=== PATIENT | female | born 1950 | race Caucasian/White ===

== ENCOUNTER 2016-11-14 06:38 | Inpatient (IN) | payer OTHER ==
[~2016-11-14] VITALS: Ht 165.1 cm; Wt 84.3 kg
--- NOTE | 2016-11-14 06:42 | ED.REPORT ---
HPI-Abd Pain F 40 and Over Date of Service Nov 14, 2016 ED Provider: Dez Up Patient is a 66 year old female who presents to the ED complaining of LLQ, sharp , stabbing, abdominal pain onset 2 days ago. Her pain normally improves with exercise. Associated symptoms include nausea and vomiting (onset this morning). She denies diarrhea, headache, fever, or any other symptoms. She has had similar symptoms previously accompanied by vomiting that was suspected to be diverticulitis. Per records, she was diagnosed with sigmoid diverticulosis on 03/2009. She has taken 3 Vicodin over the past 3 days without relief. She was recently diagnosed with an asymptomatic UTI and finished a course of antibiotics. Nursing Notes Stated Complaint: ABDOMINAL PAIN Nursing Notes Reviewed: Yes Allergies: Coded Allergies: ciprofloxacin (Verified Allergy, Unknown, Rash, 11/14/16) General Time Seen by MD: 06:41 Chief Complaint Abdominal pain Hx Obtained From: Patient Arrived By: Walk-in Sudden in Onset?: Yes Onset Occurred: 3 days ago Symptom Duration: Since onset Progression since Onset: Gradually worsening Similar Sx Previous: Yes Risk Factors )( AAA Risk Stratification HypertensionNo Prior AAA, No Smoking Risk factors reviewed Past Medical History Past Medical History Reports: Hypertension, Denies: Diabetes mellitus Past Surgical History Reports: Cholecystectomy Smoking History Never Smoker Social History Alcohol Use: 1-3 per day Other Social History: Good social support Ambulatory Status Independent Review of Systems Constitutional: Denies: Fever GI: Reports: Abdominal pain, Nausea, Vomiting, Denies: Diarrhea Complete sys rev & neg: except as marked. Neurologic: Denies: Headache Physical Exam Vital Signs Vital Signs (First) Date Time Temp Pulse Resp B/P Pulse Ox O2 Delivery O2 Flow Rate FiO2 11/14/16 06:44 37.3 98 18 198/98 97 Room Air Initial VS: Reviewed Head / Eyes: Atraumatic, Normocephalic Neck: Full range of motion Skin: Warm, Dry Neurologic: Alert, Oriented, Nonfocal Psychiatric: Mood/affect normal, Behavior normal, Normal thought content General/Constitutional: Awake, Alert, Well developed Respiratory / Chest: Atraumatic, Breath sounds NL, Breath sounds = bilat, No respiratory distress Cardiovascular: Heart sounds NL, No gallop, No murmurs, No rubs Abdomen: Atraumatic, Soft Tenderness/Guarding/Rebound: Positive: Tender LLQ... (Mild) Back: Atraumatic, Inspection NL, No CVA tenderness Interpretation & Diagnostics Lab Results Interpretation Result Diagram: 11/14/16 0715 11/14/16 0715 Test 11/14/16 07:00 11/14/16 07:15 Urine Color Straw (YELLOW) Urine Appearance Clear (CLEAR,HAZY) Urine pH 5.5 (5.0-8.0) Urine Specific [place] 1.021 (1.003-1.035) Urine Protein Negativemg/dL (NEG,TRACE) Urine Glucose (UA) Negativemg/dL (NEGATIVE) Urine Ketones Negativemg/dL (NEGATIVE) Urine Occult Blood Trace (NEGATIVE) Urine Nitrite Negative (NEGATIVE) Urine Bilirubin Negative (NEGATIVE) Urine Urobilinogen Normalmg/dL (NORMAL) Urine Leukocyte Esterase Trace (NEGATIVE) Urine RBC 0-2/hpf (0-2) Urine WBC 0-5/hpf (0-5) Urine Epithelial Cells Occasional/hpf (NONE-MOD) Urine Crystals Uric acid crystals (NONE Urine Bacteria None/hpf (NONE-FEW) Urine Hyaline Casts None/lpf (NONE) Urine Granular Casts None seen (NONE SEEN) Urine Waxy Casts None seen (NONE SEEN) Urine Red Blood Cell Casts None seen (NONE SEEN) Urine White Blood Cell Casts None seen (NONE SEEN) Urine Mucus None seen (None Seen) Urine Trichomonas None seen (NONE SEEN) Urine Yeast None (NONE SEEN) Urinalysis Comment None Urine Culture Reflexed Not indicated White Blood Count 14.6th/mm3 (3.8-10.1) Red Blood Count 4.66mil/mm3 (3.90-5.20) Hemoglobin 13.9g/dL (12.0-15.6) Hematocrit 41.6% (35.0-46.0) Mean Corpuscular Volume 89.3fL (81-100) Mean Corpuscular Hemoglobin 29.8pg (27.0-35.0) Mean Corpuscular Hemoglobin Concent 33.4% (32.0-37.0) Red Cell Distribution Width 14.5% (12.3-15.4) Platelet Count 253bil/L (150-400) Neutrophils (%) (Auto) 73.0% (40-74) Lymphocytes (%) (Auto) 16.1% (14-46) Monocytes (%) (Auto) 10.3% (4-12) Eosinophils (%) (Auto) 0.1% (0-5) Basophils (%) (Auto) 0.1% (0-3) Sodium Level 139mEq/L (134-144) Potassium Level 3.9mEq/L (3.5-5.2) Chloride Level 102mEq/L (97-108) Carbon Dioxide Level 20mmol/L (18-29) Blood Urea Nitrogen 21mg/dL (8-27) Creatinine 0.83mg/dL (0.57-1.00) Estimat Glomerular Filtration Rate 98mL/min (>59) Glucose Level 156mg/dL (60-99) Calcium Level 9.7mg/dL (8.5-10.1) Magnesium Level 1.8mg/dL (1.6-2.6) Total Bilirubin 0.7mg/dL (0.0-1.2) Aspartate Amino Transf (AST/SGOT) 14U/L (0-50) Alanine Aminotransferase (ALT/SGPT) 19U/L (0-32) Alkaline Phosphatase 103U/L (25-165) Total Protein 7.9g/dL (6.4-8.4) Albumin 4.4g/dL (3.4-5.0) Lipase 13U/L (13-60) Hold Marcus Top Tube Received (Received) CT Abd / Pelvis Interpretation IMPRESSION: 1. Sigmoid diverticulosis and diverticulitis. There is a 1.2 x 2.6 cm fluid collection left lateral to the sigmoid colon demonstrating rim enhancement and small amount of gas, suspicious for diverticular perforation and small abscess. 2. Low-density nodules in liver are most likely cysts or hemangiomas. The result was discussed with Dr. Up in ER prior to dictation. Dictated by: Luda Murry M.D. on 11/14/2016 at 9:10 Approved by: Luda Murry M.D. on 11/14/2016 at 9:19 Study type: Abdominal CT IV contrast Interpretation / Wet Read by: Interpret - Radiologist Re-Eval/Medical Decision Re-Evaluation/Progress #1: Time of Eval: 08:10 )( Re-Eval Abdomen: Soft Re-Evaluation/Progress Note: Rechecked patient. She is feeling much better and her sharp abdominal pain is nearly resolved. Re-Evaluation/Progress #2: Time of Eval: 09:27 )( Re-Eval Abdomen: Soft Re-Evaluation/Progress Note: Rechecked patient. Discussed imaging results. Re-Evaluation/Progress #3: Time of Eval: 09:48 )( Re-Eval Abdomen: Soft Re-Evaluation/Progress Note: Discussed plan for admission. Patient understands and agrees with plan. All questions addressed at this time. Consultation #1: Referral / Consult Name: David Parra MD Consulted With: Surgeon Call Returned at: 09:43 Intensive Care Nurse: Agrees with eval, Agrees with plan Note: Discussed pt. case. Suggests in-patient care Consultation #2: Referral / Consult Name: Salvador Cotter MD Consulted With: Hospitalist Call Returned at: 10:52 Intensive Care Nurse: Will see patient, Agrees with eval, Agrees with plan, Accepts admit Note: Discussed patient's case. Accepts admit. Counseled Regarding: Diagnosis, Lab results, Need for admission Discharge & Departure Primary Impression: Diverticulitis of intestine with perforation and abscess Diverticulitis site: unspecified part of intestinal tract Diverticulitis bleeding: without bleeding Qualified Code: K57.80 - Diverticulitis of intestine, part unspecified, with perforation and abscess without bleeding Disposition: ADMITTED TO HOSPITAL Scribe Attestation Portions of this note were transcribed by Nasim Ac. I, Dr. Up personally performed the history, physical exam and medical decision-making; I reviewed and confirmed the accuracy of the information in the transcribed note. Signed by: Nasim Ac 11/14/16, 1053 Dez Up MD Nov 14, 2016 06:41 NASIM AC Nov 14, 2016 06:49
[2016-11-14 06:44] VITALS: BP 198/98; PULSE 98; RESP 18; O2SAT 97
[2016-11-14] MEDS ORDERED: 0.9% Sodium Chloride 1,000 ML IV ONE (06:51)
[2016-11-14] MEDS ORDERED: Pantoprazole 4 mg/mL 10 mL Inj IVPUSH ONE (06:55)
[2016-11-14] MEDS ORDERED: Ondansetron 2 mg/mL 2 mL Inj IVPUSH PRN ×2 (06:55→11:00)
[2016-11-14 07:35] LABS: BASOPHILS % (AUTO) 0.1 % (0-3); EOSINOPHILS % (AUTO) 0.1 % (0-5); MONOCYTES % (AUTO) 10.3 % (4-12); Mean Corpuscular Hemoglobin 29.8 pg (27.0-35.0); Mean Corpuscular Volume 89.3 fL (81-100); Platelet Count 253 bil/L (150-400)
[2016-11-14 07:50] LABS: APPEARANCE,URINE CLEAR (CLEAR,HAZY); COLOR,URINE STRAW (YELLOW); OCCULT BLOOD,URINE TRACE (NEGATIVE); PH,URINE 5.5 (5.0-8.0); UROBILINOGEN,URINE NORMAL (NORMAL)
[2016-11-14 08:16] LABS: Magnesium 1.8 mg/dL (1.6-2.6)
[2016-11-14] MEDS: HYDROmorphone 1 mg/mL Inj IVPUSH PRN ×4 (08:41→20:03)
--- NOTE | 2016-11-14 09:21 | DRSVH ---
PROCEDURE: CT ABDOMEN AND PELVIS WITH CONTRAST ([id number]) INDICATIONS: 66 year-old woman with left lower quadrant pain. TECHNIQUE: After the administration of intravenous contrast, 5 mm thick sections acquired from the diaphragm to the symphysis. 5 mm coronal and sagittal reformats were acquired. For radiation dose reduction, the following was used: automated exposure control, adjustment of mA and/or kV according to patient siz e. COMPARISON: None. FINDINGS: Image quality: Excellent. ABDOMEN: Lung bases: Lung bases are clear. Heart size is normal. Solid organs: Hepatic hypodensities are most likely cysts or hemangiomas. Liver and spleen are flaca l in size and enhancement. Gallbladder is surgically absent. Biliary system is non dilated. Pancre as enhances normally. No adrenal nodules. Kidneys demonstrate normal size and enhancement, without hydronephrosis. Peritoneum and bowel: There are scattered colonic diverticula in sigmoid colon. There is focal thick ening sigmoid colon surrounding fat stranding consistent with acute diverticulitis. There is a small rim enhancing fluid collection lateral to the sigmoid colon measuring 1.2 x 2.6 cm. There is small am ount of gas within the collection. It is suspicious for a small diverticular perforation and abscess. Bowel loops demonstrate normal wall thickness and caliber. No free fluid or air. Nodes and vessels: No retroperitoneal or mesenteric adenopathy by size criteria. Aorta and inferior vena cava are normal in size. Miscellaneous: No ventral hernias. PELVIS: Genitourinary: Bladder wall thickness is normal. Miscellaneous: No inguinal hernias or adenopathy. Bones: No suspicious bony lesions. No vertebral body compression fractures. IMPRESSION: 1. Sigmoid diverticulosis and diverticulitis. There is a 1.2 x 2.6 cm fluid collection left lateral t o the sigmoid colon demonstrating rim enhancement and small amount of gas, suspicious for diverticula r perforation and small abscess. 2. Low-density nodules in liver are most likely cysts or hemangiomas. The result was discussed with Dr. Up in ER prior to dictation. Dictated by: Luda Murry M.D. on 11/14/2016 at 9:10 Approved by: Luda Murry M.D. on 11/14/2016 at 9:19
[2016-11-14] MEDS ORDERED: Piperacillin-Tazo 3.375 Gm Inj 3.375 GM in Dextrose 5% Minibag Plus 50 ML IV ONE (09:45)
[2016-11-14] MEDS ORDERED: Alum-Mag Hydrox-Simeth 30 mL Suspension PO PRN (11:00)
[2016-11-14 11:24] VITALS: BP 108/82; PULSE 80; RESP 18; O2SAT 96
[2016-11-14 11:30] VITALS: BP 131/80; PULSE 78; RESP 17; O2SAT 97
--- NOTE | 2016-11-14 11:30 | PCM.CONSUR ---
Subjective Date of Service: Nov 14, 2016 History of Present Illness Patient is a 66 year old female who presents to the ED complaining of LLQ, sharp , stabbing, abdominal pain onset 2 days ago with Tuesday worse than Tuesday. Her pain normally improves with exercise. She has had similar symptoms previously accompanied by vomiting that was suspected to be diverticulitis. Per records, she was diagnosed with sigmoid diverticulosis on 03/2009. Reports last colonoscopy was roughly 4-5 years ago showing diverticulosis with no evidence of mass. She has taken 3 Vicodin over the past 3 days without relief. Took previously prescribed amoxicillin and Vicodin since she has known sigmoid diverticulosis and recurrent diverticulitis. She was recently diagnosed with an asymptomatic UTI and finished a course of antibiotics. 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 Medications include Vit D, fish oil and has taken cholestyramine since cholecystectomy, which gives her chronic loose stools. Pain currently well controlled. Denies fever, chills, dizziness, shortness of breath, chest pain and no nausea, and vomiting since this morning. Reports daily BMs. Nausea with vomiting today due to pain. Abdomen TTP in LLQ. Of note: Has a trip scheduled to [facility] then cruise ship for 5 day to [place] starting Tuesday for a total trip of 16 days. Reason for Consultation LLQ abdominal pain CT findings of sigmoidal diverticulitis with small fluid collection. Allergy Allergies: Coded Allergies: ciprofloxacin (Verified Allergy, Unknown, Rash, 11/14/16) Medications Hypertension Medication: No Home Meds Incl Beta Blockers: No Cholecalciferol (Vitamin D3) (Vitamin D3) 5,000 Unit Capsule 5,000 UNIT PO DAILY (Reported) Last Taken: Unknown Dose on 11/13/16 0830 Cholestyramine (Cholestyramine Packet) 4 Gm Packet 4 GM PO DAILY (Reported) Last Taken: Unknown Dose on 11/13/16 0830 Hydrocodone-Acetaminophen 5-325 mg (Hydrocodone-Acetaminophen 5-325 mg) 1 Each Tablet 1 TABLET PO TID PRN PRN For Pain (Reported) Last Taken: Unknown Dose on 11/14/16 0100 Lactobacillus Combo No.11 ( Probiotic) 1 Each Cap.sprink 1 EACH PO DAILY (Reported) Last Taken: Unknown Dose on 11/13/16 0830 [place]-3/Dha/Epa/Fish Oil (Fish Oil 1,600 mg/5 ml Liquid) 1,600 Mg-500 Mg-800 Mg/5 Ml Liquid 1,600 MG PO DAILY ( Reported) Last Taken: Unknown Dose on 11/13/16 0830 Past Surgical History Surgeries: Yes (Gallbladder) Social History Hx Alcohol Use: Yes (red wine) Alcoholic Drinks Per Day: 1-2 glasses Hx Substance Use: No PMH Cardiovascular History Cardiovascular History: Positive for:: Hypertension (Had it 10 years ago, diet and excersise reduced BP) Denies:: Congestive Heart Failure Respiratory Respiratory History: Denies:: Tuberculosis Other History Diabetes: No Social History Hx Alcohol Use: Yes (red wine)Alcoholic Drinks Per Day: 1-2 glassesHx Substance Use: No Smoking Status: Never Smoker Objective Exam Objective A comprehensive review of systems was conducted with the patient and found to be negative except as above in the History of Present Illness. Vital Signs & I/O Vital Sign- Last 8 Hours Date Time Temp Pulse Resp B/P Pulse Ox O2 Delivery O2 Flow Rate FiO2 11/14/16 06:44 37.3 98 18 198/98 97 Room Air Lab & Micro Results Laboratory Tests Test 11/14/16 07:00 11/14/16 07:15 Urine Color Straw (YELLOW) Urine Appearance Clear (CLEAR,HAZY) Urine pH 5.5 (5.0-8.0) Urine Specific [place] 1.021 (1.003-1.035) Urine Protein Negativemg/dL (NEG,TRACE) Urine Glucose (UA) Negativemg/dL (NEGATIVE) Urine Ketones Negativemg/dL (NEGATIVE) Urine Occult Blood Trace (NEGATIVE) Urine Nitrite Negative (NEGATIVE) Urine Bilirubin Negative (NEGATIVE) Urine Urobilinogen Normalmg/dL (NORMAL) Urine Leukocyte Esterase Trace (NEGATIVE) Urine RBC 0-2/hpf (0-2) Urine WBC 0-5/hpf (0-5) Urine Epithelial Cells Occasional/hpf (NONE-MOD) Urine Crystals Uric acid crystals (NONE Urine Bacteria None/hpf (NONE-FEW) Urine Hyaline Casts None/lpf (NONE) Urine Granular Casts None seen (NONE SEEN) Urine Waxy Casts None seen (NONE SEEN) Urine Red Blood Cell Casts None seen (NONE SEEN) Urine White Blood Cell Casts None seen (NONE SEEN) Urine Mucus None seen (None Seen) Urine Trichomonas None seen (NONE SEEN) Urine Yeast None (NONE SEEN) Urinalysis Comment None Urine Culture Reflexed Not indicated White Blood Count 14.6th/mm3 (3.8-10.1) Red Blood Count 4.66mil/mm3 (3.90-5.20) Hemoglobin 13.9g/dL (12.0-15.6) Hematocrit 41.6% (35.0-46.0) Mean Corpuscular Volume 89.3fL (81-100) Mean Corpuscular Hemoglobin 29.8pg (27.0-35.0) Mean Corpuscular Hemoglobin Concent 33.4% (32.0-37.0) Red Cell Distribution Width 14.5% (12.3-15.4) Platelet Count 253bil/L (150-400) Neutrophils (%) (Auto) 73.0% (40-74) Lymphocytes (%) (Auto) 16.1% (14-46) Monocytes (%) (Auto) 10.3% (4-12) Eosinophils (%) (Auto) 0.1% (0-5) Basophils (%) (Auto) 0.1% (0-3) Sodium Level 139mEq/L (134-144) Potassium Level 3.9mEq/L (3.5-5.2) Chloride Level 102mEq/L (97-108) Carbon Dioxide Level 20mmol/L (18-29) Blood Urea Nitrogen 21mg/dL (8-27) Creatinine 0.83mg/dL (0.57-1.00) Estimat Glomerular Filtration Rate 98mL/min (>59) Glucose Level 156mg/dL (60-99) Calcium Level 9.7mg/dL (8.5-10.1) Magnesium Level 1.8mg/dL (1.6-2.6) Total Bilirubin 0.7mg/dL (0.0-1.2) Aspartate Amino Transf (AST/SGOT) 14U/L (0-50) Alanine Aminotransferase (ALT/SGPT) 19U/L (0-32) Alkaline Phosphatase 103U/L (25-165) Total Protein 7.9g/dL (6.4-8.4) Albumin 4.4g/dL (3.4-5.0) Lipase 13U/L (13-60) Hold Marcus Top Tube Received (Received) Result Diagram: 11/14/16 0715 11/14/16 0715 Review of Systems: Constitutional: Negative, except as otherwise mentioned in the history above. Ophthalmologic: Negative, except as otherwise mentioned in the history above. Cardiovascular: Negative, except as otherwise mentioned in the history above. Respiratory: Negative, except as otherwise mentioned in the history above. Gastrointestinal: Negative, except as otherwise mentioned in the history above. Genitourinary: Negative, except as otherwise mentioned in the history above. Musculoskeletal: Negative, except as otherwise mentioned in the history above. Neurological: Negative, except as otherwise mentioned in the history above. Psychiatric: Negative, except as otherwise mentioned in the history above. Hematologic/Lymphatic: Negative, except as otherwise mentioned in the history above. Allergic/Immunologic: Negative, except as otherwise mentioned in the history above. H&P Surgical Exam Exam Additional Information General: Peacefully sitting up in bed. Well-developed. Appropriately interactive. HEENT: Normocephalic, atraumatic. External ears without defect. Oropharynx free of erythema with moist mucosa. Normal dentition. Cardiovascular: Regular rate and rhythm with no murmurs, rubs, or gallops appreciated Pulmonary: Clear to auscultation bilaterally with no crackles, wheezes, or rhonchi. Normal respiratory effort with no use of accessory muscles. Abdomen: Bowel tones present. Soft, Mild to moderately tender to palpation in the LLQ, nondistended. No hepatosplenomegaly or masses appreciated. Extremities: No clubbing, cyanosis, edema, or lymphadenopathy appreciated. Skin: Normal temperature, turgor, and texture; no rash, ulcers, or subcutaneous nodules appreciated. Neurological: Cranial nerves grossly intact. Normal muscle strength, tone, and bulk. Reflexes, coordination, and sensory function within normal limits. No known gait impairment. Psychiatric: Normal mood and affect. Alert and oriented to person, place, and time. Assessment & Plan Assessment Sigmoidal Diverticulitis with small fluid collection per CT. Pain Evaluation: Adequate Pain Control Plan: -Surgical intervention not necessary at this point. Recommend 1-3 night stay with bowel rest, IV abx and pain control. She will be on a cruise ship heading for [place] for 5 days starting Tuesday. We want to make sure she has adequate IV antibiotic coverage - before the trip. Also will plan for repeat CT abdomen preferably on before her trip to make sure she doesn't have an abscess brewing. -NPO and bowel rest, will monitor overnight. -Continue IV antibiotics. -Hospitalist team following. -Continue pain regimen per medicine team. -Continue IV fluids per medicine team. Attending Statement: I personally interviewed and examined the pt, and I agree with Dr. Carolina's assessment and plan. IV abx for now. Consider a repeat CT scan prior to her travel. LOGAN CAROLINA DO Nov 14, 2016 11:30 David Parra MD Nov 14, 2016 17:00
--- NOTE | 2016-11-14 11:56 | NUR ---
Admission Pt arrived to [facility] rm 1027 at approx 1120. Pt arrived via gurney and was able to ambulate independently to the hospital bed. IV SL, RA, pain 2, denies nausea. Rec'd report from Theresa Scales RN. Pt oriented to room and call light by RUSS, welcome video showed after admission complete. Medications that were with patient were given to daughter to take home.
[2016-11-14] MEDS ORDERED: HYDR-4003 PO (12:04)
[2016-11-14] MEDS ORDERED: CHOL5000 PO (12:04)
[2016-11-14] MEDS ORDERED: OMEG1600 PO (12:04)
[2016-11-14] MEDS ORDERED: QUE9 PO (12:04)
[2016-11-14] MEDS ORDERED: LACT1CAP73 PO (12:04)
[2016-11-14] MEDS: 0.9% Sodium Chloride 1,000 ML IV SCH ×2 (12:46→22:06)
--- NOTE | 2016-11-14 15:18 | PCM.HPMED ---
Subjective Date of Service Nov 14, 2016 Primary Provider: Admitting Physician: Salvador Cotter MD Primary Care Physician: Nopcp Attending Physician: Salvador Cotter MD Chief Complaint: abdominal pain History of Present Illness: Patient is a 66 year old female with past medical history of divertuclosis , diverticulitis , who presents to the ED complaining of LLQ, sharp, stabbing, abdominal pain onset 2 days ago with Tuesday worse than Tuesday. She took a couple of doses of vicodin without any improvement . She has a recent UTI for which [facility] was put on Amoxicillin. She also stated she had previous history of diverticulitis back in march 2009. last colonoscopy was 4 years ago and showed diverticulosis CT scan here shows : Sigmoid diverticulosis and diverticulitis. There is a 1.2 x 2.6 cm fluid collection left lateral to the sigmoid colon demonstrating rim enhancement and small amount of gas, suspicious for diverticular perforation and small abscess. Review of Systems: A comprehensive review x 12 points is negative except for abdominal pain as described above in HPI Allergies Coded Allergies: ciprofloxacin (Verified Allergy, Unknown, Rash, 11/14/16) Home Medications Cholecalciferol (Vitamin D3) (Vitamin D3) 5,000 Unit Capsule 5,000 UNIT PO DAILY (Reported) Cholestyramine (Cholestyramine Packet) 4 Gm Packet 4 GM PO DAILY (Reported ) Hydrocodone-Acetaminophen 5-325 mg (Hydrocodone-Acetaminophen 5-325 mg) 1 Each Tablet 1 TABLET PO TID PRN PRN For Pain (Reported) Lactobacillus Combo No.11 (Probiotic) 1 Each Cap.sprink 1 EACH PO DAILY ( Reported) [place]-3/Dha/Epa/Fish Oil (Fish Oil 1,600 mg/5 ml Liquid) 1,600 Mg-500 Mg-800 Mg /5 Ml Liquid 1,600 MG PO DAILY (Reported) PMH Diverticulosis Surgical History Cholecystectomy Family History Unremarkable Social History Hx Alcohol Use: Yes Alcoholic Drinks Per Day: Wine 2 glasses per day Hx Substance Use: No Smoking Status: Never Smoker Living Arrangement: with Family Exam Vital Signs Vital Sign - Last Date Time Temp Pulse Resp B/P Pulse Ox O2 Delivery O2 Flow Rate FiO2 11/14/16 11:30 36.7 78 17 131/80 97 Room Air Exam General: No acute distress, well-developed, well-nourished, appropriately interactive HEENT: Normocephalic, atraumatic Pupils equal, round, and reactive to light and accommodation, no scleral icterus, oral mucosa moist . Neck: Supple with full range of motion. No jugular venous distension. No bruits. No lymphadenopathy or thyromegaly. Cardiovascular: Regular rate and rhythm with no murmurs, rubs, or gallops appreciated Pulmonary: Clear to auscultation bilaterally with no crackles, wheezes, or rhonchi. Normal respiratory effort. Abdomen: Bowel tones present. Soft, left lower quadrant tenderness.no guarding Extremities: No clubbing, cyanosis, edema, or lymphadenopathy appreciated. Skin: Normal temperature, turgor, and texture; no rash, ulcers, or subcutaneous nodules appreciated. Neurological: Cranial nerves grossly intact. Normal muscle strength, tone, and bulk. Psychiatric: Normal mood and affect. Alert and oriented to person, place, and time. Lab and Diagnostics Result Diagram: 11/14/1615 11/14/1615 X-Rays, CTs and MRIs abdominal CT scan reviewed : 1. Sigmoid diverticulosis and diverticulitis. There is a 1.2 x 2.6 cm fluid collection left lateral to the sigmoid colon demonstrating rim enhancement and small amount of gas, suspicious for diverticular perforation and small abscess. 2. Low-density nodules in liver are most likely cysts or hemangiomas. Assessment & Plan 1. Acute Diverticulitis 2. Perforated Viscus 3. H/o Diverticulosis 4. Liver low density lseion : Cyst VS hemangioma. Medical management Clear liquid diet . PPI. Zofran for nausea and vomiting Morphine sulfate 2 mg IV Q$ H PRN for pain IV hydration with NS @ 100 ml/hr / Monitor electrolytes Start Zosyn 3.375 mg IV every 8 hours . Surgery consult and recommendation. Obtain liver US for better definition of low density lesion seen on CT scan Patient stated she would rather not have any surgery , even in the case that become necessary SCD for DVT prophylaxis Pain Evaluation: Adequate Pain Control GI Prophylaxis: Proton Pump Inhibitor VTE Mechanical Devices: Intermittant Pneumatic CD Time spent 75 minutes Salvador Cotter MD Nov 14, 2016 15:18
[2016-11-14 16:06] VITALS: BP 123/76; PULSE 86; RESP 19; O2SAT 99
[2016-11-14] MEDS ORDERED: Piperacillin-Tazo 3.375 Gm Inj 3.375 GM in Dextrose 5% Minibag Plus 50 ML IV SCH (16:30)
--- NOTE | 2016-11-14 17:15 | DRSVH ---
PROCEDURE: US ABDOMEN, LIMITED ([id number]) INDICATIONS: Liver cyst VS mass TECHNIQUE: Real-time focused scanning was performed of the abdomen, with image documentation. COMPARISON: [facility], CT, CT ABD PELVIS W CON, 11/14/2016, 8:32. FINDINGS: 2 hepatic cysts are present, correlating with findings on CT and a larger cyst is in the an terior right hepatic lobe measuring 3.7 x 2.9 x 2.7 cm. This cyst demonstrates mild mural nodularity and has a partial septation. On Doppler ultrasound, no flow within the cyst. There is a smaller cyst just more superiorly in the right hepatic lobe measuring 1.7 x 1.6 x 1.5 cm. IMPRESSION: 2 hepatic cysts. Dictated by: Luda Muryr M.D. on 11/14/2016 at 17:09 Approved by: Luda Murry M.D. on 11/14/2016 at 17:13
[2016-11-14] MEDS: Piperacillin-Tazo 3.375 Gm Inj 3.375 GM in Dextrose 5% Minibag Plus 50 ML IV SCH (18:14)
[2016-11-14 19:55] VITALS: BP 148/86; PULSE 83; RESP 14; O2SAT 94
[2016-11-15] MEDS: HYDROmorphone 1 mg/mL Inj IVPUSH PRN ×4 (00:43→21:01)
[2016-11-15] MEDS: Piperacillin-Tazo 3.375 Gm Inj 3.375 GM in Dextrose 5% Minibag Plus 50 ML IV SCH ×3 (02:47→18:49)
--- NOTE | 2016-11-15 04:11 | NUR ---
Pain On initial assessment, patient's pain level stated at a 3/10 on pain scale. Patient can tolerate 1/10. Dilaudid 1mg IVP administered. Patient ambulating to BR well without any problems. VSS. Call light within reach. Care continues.
[2016-11-15 05:17] VITALS: BP 157/83; PULSE 84; RESP 16; O2SAT 93
[2016-11-15 06:13] LABS: BASOPHILS % (AUTO) 0.1 % (0-3); EOSINOPHILS % (AUTO) 0.9 % (0-5); MONOCYTES % (AUTO) 10.1 % (4-12); Mean Corpuscular Hemoglobin 29.9 pg (27.0-35.0); Mean Corpuscular Volume 92.5 fL (81-100); NEUTROPHILS % (AUTO) 68.9 % (40-74); Platelet Count 194 bil/L (150-400)
[2016-11-15] MEDS ORDERED: Ketorolac 15 mg/mL Inj IVPUSH ONE (08:20)
[2016-11-15] MEDS: 0.9% Sodium Chloride 1,000 ML IV SCH ×3 (08:21→23:10)
--- NOTE | 2016-11-15 09:05 | PCM.PNSURG ---
Subjective Date of Service: Nov 15, 2016 Visit Information: Reason for Visit Diverticulitis W/Perf And Abscess Surgery/Surgery Date Post-Op Day # Date of Admission: Nov 14, 2016 at 10:38 Hospital Day #2 Subjective: Pain mostly but not completely resolved with IV analgesics. Nausea relieved with IV antiemetic. Drinking liquids. No vomiting. Passing flatus but has not had a bowel movement. Ambulatory in the room. Postop General: Other (as above) Gastrointestinal: Tolerating Oral Feedings, Passing Flatus, Complains of Nausea (minimal) Pain Management: IV Push Postop Activity: Ambulating in Room Only Objective Vital Sign- Last 8 Hours Date Time Temp Pulse Resp B/P Pulse Ox O2 Delivery O2 Flow Rate FiO2 11/15/16 05:17 37.0 84 16 157/83 93 Room Air Intake and Output- Last 8 Hour 11/15/16 Cumulative From/Thru 07:00 11/14/16 06:44 - 11/15/16 06:42 Intake Total 1341 ml 3116 ml Output Total 450 ml 550 ml Balance 891 ml 2566 ml Intake Oral 400 ml 660 ml IV Total 941 ml 2456 ml Output Urine Total 450 ml 550 ml # Bowel Movements 0 General: Alert, Cooperative, No Acute Distress Lungs: Clear to Auscultation Heart: Regular Rate/Rhythm Abdomen: Soft, Non-distended, No masses, Other (tender in the left lower quadrant) Extremities: Thigh&Calf Soft/Nontender Neuro: Normal Speech Catheters: None Result Diagram: 11/15/16 0540 11/15/16 0540 Assessment & Plan Impression Primary diagnosis: Sigmoid diverticulitis with CT evidence of microperforation. HD #2 on IV antibiotics, stable. Other chronic condition: Hypertension Problems: Plan 1. Continue liquid diet. 2. Continue IV antibiotics. 3. Repeat CBC in the morning. Pain Management: IV analgesic VTE Prophylaxis: SCDs Resuscitation Status: CPR: Attempt Resuscitation Burton Rg PA-C Nov 15, 2016 09:05
--- NOTE | 2016-11-15 11:32 | NUR ---
Social Work-initial assessment/ readiness for discharge: Data:See initial assessment. Pt is on 66 y/o female who was admitted on 11/14/16 for diverticulitis per H&P. Pt's insurance is [employer] and PCP is Dr. Alex MD at the [facility]. Pt's readmission score is 1.SW met with pt and daughter at bedside to discuss discharge planning, SW role explained. Pt is alert and oriented x3. Pt resides at home where she remains independent with ADLS. Pt drives and has no HH or SNF history. Pt has no retirement care or VA benefits. SW discussed DPOA/ advanced directive, pt states she has completed paperwork, SW encouraged her to bring a copy into the hospital. Per RN notes, pt has been up independent in her room. Pt's daughter to provide transport home at discharge. SW provided phone number and plan on white board in room. No anticipated discharge needs. SW will continue to follow if needs arise. Assessment:Pt who is independent at baseline. Plan:Pt to discharge home when medically stable via POV. No anticipated discharge needs. SW will continue to follow if needs arise. MINAL Prater Addendum: 11/15/16 at 1140 by DIGNA CARNE Amended: Links added.
--- NOTE | 2016-11-15 12:06 | PCM.PNMED ---
Subjective Date of Service Nov 15, 2016 Subjective Follow up for diverticulitis . Patient seen and examined at bedside . She is feeling better today, tolerating liquid diet. No nausea, no vomiting. WBC down and abdominal pain is quite less Exam Vital Signs Vital Sign - Last Date Time Temp Pulse Resp B/P Pulse Ox O2 Delivery O2 Flow Rate FiO2 11/15/16 05:17 37.0 84 16 157/83 93 Room Air Intake and Output 11/14/16 11/14/16 11/15/16 Cumulative From/Thru 15:00 23:00 07:00 11/14/16 06:44 - 11/15/16 06:42 Intake Total 999 ml 776 ml 1341 ml 3116 ml Output Total 100 ml 450 ml 550 ml Balance 999 ml 676 ml 891 ml 2566 ml Intake Oral 260 ml 400 ml 660 ml IV Total 999 ml 516 ml 941 ml 2456 ml Output Urine Total 100 ml 450 ml 550 ml # Bowel Movements 0 0 Exam General: No acute distress. In bed comfortably HEENT: PERRL . Sclerae is anicteric Mouth : Moist oropharyngeal mucosae. Neck: supple, trachea is midline . Normal ROM. Chest: normal respiratory effort. No chest wall tenderness Lungs clear to auscultation and percussion. Heart: S1, S2 regular Rate, rhythm is regular. There is no murmur, rub or gallop. Abdomen: Left lower quadrant mildly tender. Normal bowel sounds on quadrant Extremities: No edema, no cyanosis Neurologic: Grossly non focal. AAO x 3 IVs and Medications Medications Reviewed: Medications were reviewed in detail Lab and Diagnostics Result Diagram: 11/15/16 0540 11/15/16 0540 X-Rays, CTs and MRIs abdominal CT scan reviewed : 1. Sigmoid diverticulosis and diverticulitis. There is a 1.2 x 2.6 cm fluid collection left lateral to the sigmoid colon demonstrating rim enhancement and small amount of gas, suspicious for diverticular perforation and small abscess. 2. Low-density nodules in liver are most likely cysts or hemangiomas. Assessment & Plan 1. Acute Diverticulitis 2. Perforated Viscus 3. H/o Diverticulosis 4. Liver cyst Medical management Patient is feeling better today . Some lingering abdominal pain . She stated Toradol works better and would like to avoid narcotics Discontinue Dilaudid Continue IV hydration with NS @ 100 ml/hr / Monitor electrolytes Continue Zosyn 3.375 mg IV every 8 hours . Surgery consult and recommendation appreciated US shows low density lesion seen on CT scan are 2 liver cysts Upgrade diet to full liquid SCD for DVT prophylaxis GI Prophylaxis: Proton Pump Inhibitor VTE Prophylaxis: SCDs VTE Mechanical Devices: Intermittant Pneumatic CD Resuscitation Status: CPR: Attempt Resuscitation Time spent 25 minutes Salvador Cotter MD Nov 15, 2016 12:06
[2016-11-15] MEDS: Ketorolac 15 mg/mL Inj IVPUSH PRN ×2 (12:23→19:51)
--- NOTE | 2016-11-15 13:46 | NUR ---
Pain Pt continues with abd pain, but states Toradol is working much better. Pt up ad yasmeen in room with steady gait, now tolerating full liquid diet. Cont to monitor.
[2016-11-15 15:07] VITALS: BP 137/86; PULSE 76; RESP 19; O2SAT 95
[2016-11-15 19:45] VITALS: BP 193/94; PULSE 77; RESP 17; O2SAT 95
[2016-11-16] MEDS: Piperacillin-Tazo 3.375 Gm Inj 3.375 GM in Dextrose 5% Minibag Plus 50 ML IV SCH ×2 (02:30→10:38)
--- NOTE | 2016-11-16 03:08 | NUR ---
Nausea On initial assessment, patient complains of nausea. Patient states that nausea increased after full liquid diet and drinking Ensure. Pain stated 8/10 on pain scale. Dilaudid and Toradol administered. Patient states that she wants to continue clear liquid diet. Ondansetron administered for nausea. On reassessment, pain and nausea relieved. Blood pressure elevated . Other VS stable. Call light within reach. Care continues.
[2016-11-16] MEDS: Ketorolac 15 mg/mL Inj IVPUSH PRN ×2 (03:55→11:57)
[2016-11-16] MEDS: 0.9% Sodium Chloride 1,000 ML IV SCH (04:21)
[2016-11-16 05:56] VITALS: BP 174/85; PULSE 67; RESP 17; O2SAT 94
[2016-11-16] MEDS: HYDROmorphone 1 mg/mL Inj IVPUSH PRN (06:06)
[2016-11-16 06:16] LABS: BASOPHILS % (AUTO) 0.1 % (0-3); MONOCYTES % (AUTO) 6.9 % (4-12); Mean Corpuscular Hemoglobin 29.4 pg (27.0-35.0); Mean Corpuscular Volume 91.6 fL (81-100); NEUTROPHILS % (AUTO) 74.2 % (40-74); Platelet Count 229 bil/L (150-400)
[2016-11-16 08:25] VITALS: BP 160/75; PULSE 63; RESP 14; O2SAT 96
--- NOTE | 2016-11-16 09:30 | PCM.PNSURG ---
Subjective Date of Service: Nov 16, 2016 Date of Service: Nov 16, 2016 Visit Information: Reason for Visit Diverticulitis W/Perf And Abscess Surgery/Surgery Date Post-Op Day # Date of Admission: Nov 14, 2016 at 10:38 Hospital Day #3 Subjective: Patient seen today on surgical floor. Doing better this am with only mild generalized abdominal discomfort. Singular bout of nausea yesterday after Ensure ingestion improved after antiemetic. BM x 2 since last seen by surgery yesterday. No fevers or chills, Postop General: No Shortness of Breath, No Chest Pain Gastrointestinal: Tolerating Oral Feedings (Tolerating fulls.), Passing Stool Pain Management: IV Push, No or Minimal Pain (LLQ pain resolved.) Postop Activity: Ambulating Independently Objective Objective Comfortable appearing and sitting at bedside reading book. Vital Sign- Last 8 Hours Date Time Temp Pulse Resp B/P Pulse Ox O2 Delivery O2 Flow Rate FiO2 11/16/16 08:25 36.7 63 14 160/75 96 Room Air 11/16/16 05:56 36.8 67 17 174/85 94 Room Air Intake and Output- Last 8 Hour 11/16/16 Cumulative From/Thru 07:00 11/14/16 06:44 - 11/16/16 06:21 Intake Total 2304 ml 7791 ml Output Total 850 ml 1700 ml Balance 1454 ml 6091 ml Intake Oral 1120 ml 2880 ml IV Total 1184 ml 4911 ml Output Urine Total 850 ml 1700 ml # Bowel Movements 0 0 General: No Acute Distress Lungs: Clear to Auscultation, Normal Air Movement Heart: Exam Unremarkable Chest: clear to auscultation. Abdomen: Soft, Non-tender, Non-distended, No masses, Normoactive bowel tones Extremities: Distal Pulses Palpable, Warm, Thigh&Calf Soft/Nontender Result Diagram: 11/16/16 0556 11/16/16 0556 Assessment & Plan Impression Diverticulitis with micro perforation, appears to be resolving well. Mild leukocytosis continues. Problems: Plan 1. Advance diet to soft. 2. Oralize pain meds. 3. Lock IV 4. Follow for interval improvement prior to discharge likely either today or tomorrow. Pain Management: Percocet Toradol for breakthrough VTE Prophylaxis: SCDs Resuscitation Status: CPR: Attempt Resuscitation Axel Rodriguez PA-C Nov 16, 2016 09:30
[2016-11-16 12:48] VITALS: BP 154/83; PULSE 78; RESP 12; O2SAT 95
--- NOTE | 2016-11-16 15:12 | NUR ---
Social Work - Discharge: Data: EMR Reviewed. Pt is on day 2 of hospitalization for diverticulitus w/perf and acscess. Pt is medically stable for discharge. Pt confirms plan of returning home. Pt's family to provide transport home today. No discharge needs identified. All updated and agreeable to plan. Assessment:Pt who is independent at baseline. Plan:Pt to discharge home today via POV. No discharge needs identified. All updated and agreeable to plan. MINAL Munoz
[2016-11-16] MEDS ORDERED: AMOX-366 PO (15:14)
[2016-11-16] MEDS ORDERED: AMOX500C2 PO (15:14)
--- NOTE | 2016-11-16 15:18 | PCM.DIMED ---
Discharge Instructions Date of Service Nov 16, 2016 Dates of Hospitalization Nov 14, 2016 at 10:38 Discharge Diagnosis Discharge Diagnosis 1. Diverticulitis secondary to diverticulosis with possible abdominal abscess, improving. 2. (Questionable) Microperforation of colon 3. Liver cyst. Diet No restrictions Activity Limited until seen by PCP Call your provider Fever or Chills, Other (worsening abdominal pain. ) Patient Instructions DC with order for CT scan to be obtained in 1-2 days following DC. Follow-up plan FU with PCP, Dr Johnson via phone tomorrow to discuss CT scan order, and FU appointment currently scheduled November 18 at 5:00pm Yusuf Ruiz DO Nov 16, 2016 15:17
--- NOTE | 2016-11-16 15:26 | PCM.DC.MED ---
Discharge Summary Date of Service Nov 16, 2016 Dates of Hospitalization Date of Hospital Admission Nov 14, 2016 at 10:38 Date of Discharge: Nov 16, 2016 Providers: Admitting Physician: Salvador Cotter MD Primary Care Physician: Nopcp Attending Physician: Salvador Cotter MD Diagnosis at Time of Discharge Diagnosis at Time of Discharge 1. Diverticulitis secondary to diverticulosis with possible abdominal abscess, improving. 2. (Questionable) Microperforation of colon 3. Liver cyst. Consultations General Surgery, Dr. Warren Parra Procedures XRay, CTs & MRIs abdominal CT scan reviewed : 1. Sigmoid diverticulosis and diverticulitis. There is a 1.2 x 2.6 cm fluid collection left lateral to the sigmoid colon demonstrating rim enhancement and small amount of gas, suspicious for diverticular perforation and small abscess. 2. Low-density nodules in liver are most likely cysts or hemangiomas. Brief History Patient is a 66 year old female with past medical history of divertuclosis , diverticulitis , who presents to the ED complaining of LLQ, sharp, stabbing, abdominal pain onset 2 days ago with Tuesday worse than Tuesday. She took a couple of doses of vicodin without any improvement . She has a recent UTI for which [facility] was put on Amoxicillin. She also stated she had previous history of diverticulitis back in march 2009. last colonoscopy was 4 years ago and showed diverticulosis CT scan here shows : Sigmoid diverticulosis and diverticulitis. There is a 1.2 x 2.6 cm fluid collection left lateral to the sigmoid colon demonstrating rim enhancement and small amount of gas, suspicious for diverticular perforation and small abscess. Hospital Course 1. Acute Diverticulitis : Clinically greatly improved, off IV fluids, tolerating good food/fluids and with normal bowel function. Now #3 days of IV antibiotic Zosyn. There were some concerns with such prompt discharge given previous studies, stable but not improving WBC count, and slightly worsening liver function, however patient felt she was improving and very much preferred outpatient treatment course if at all reasonable. As such, pt will be transitioned to oral antibiotics (Augmentin 875mg PO BID & Amoxicillin 1000mg pO BID X7 days) as per ID recommendations given previous reaction to Cipro and Flagyl. Plan for CT scan in next 1-2 days and FU with PCP prior to leaving on cruise Tuesday, November 19 to ensure resolution/improvement of questionable abscess visualized at site of diverticulitis on CT scanning previously. 2. Perforated Viscus ; Possible microperforation based on imaging studies, pt clinically not demonstrating evidence of active perforation. 3. H/o Diverticulosis 4. Liver cyst; noted on imaging studies. Exam Vital Signs (Last) Date Time Temp Pulse Resp B/P Pulse Ox O2 Delivery O2 Flow Rate FiO2 11/16/16 12:48 36.8 78 12 154/83 95 Room Air Test 11/14/16 07:00 11/14/16 07:15 11/16/16 05:56 Urine Color Straw (YELLOW) Urine Appearance Clear (CLEAR,HAZY) Urine pH 5.5 (5.0-8.0) Urine Specific [place] 1.021 (1.003-1.035) Urine Protein Negativemg/dL (NEG,TRACE) Urine Glucose (UA) Negativemg/dL (NEGATIVE) Urine Ketones Negativemg/dL (NEGATIVE) Urine Occult Blood Trace (NEGATIVE) Urine Nitrite Negative (NEGATIVE) Urine Bilirubin Negative (NEGATIVE) Urine Urobilinogen Normalmg/dL (NORMAL) Urine Leukocyte Esterase Trace (NEGATIVE) Urine RBC 0-2/hpf (0-2) Urine WBC 0-5/hpf (0-5) Urine Epithelial Cells Occasional/hpf (NONE-MOD) Urine Crystals Uric acid crystals (NONE Urine Bacteria None/hpf (NONE-FEW) Urine Hyaline Casts None/lpf (NONE) Urine Granular Casts None seen (NONE SEEN) Urine Waxy Casts None seen (NONE SEEN) Urine Red Blood Cell Casts None seen (NONE SEEN) Urine White Blood Cell Casts None seen (NONE SEEN) Urine Mucus None seen (None Seen) Urine Trichomonas None seen (NONE SEEN) Urine Yeast None (NONE SEEN) Urinalysis Comment None Urine Culture Reflexed Not indicated Magnesium Level 1.8mg/dL (1.6-2.6) Lipase 13U/L (13-60) Procalcitonin 0.12ng/mL (0.00-0.08) Hold Marcus Top Tube Received (Received) White Blood Count 10.7th/mm3 (3.8-10.1) Red Blood Count 3.81mil/mm3 (3.90-5.20) Hemoglobin 11.2g/dL (12.0-15.6) Hematocrit 34.9% (35.0-46.0) Mean Corpuscular Volume 91.6fL (81-100) Mean Corpuscular Hemoglobin 29.4pg (27.0-35.0) Mean Corpuscular Hemoglobin Concent 32.1% (32.0-37.0) Red Cell Distribution Width 14.1% (12.3-15.4) Platelet Count 229bil/L (150-400) Neutrophils (%) (Auto) 74.2% (40-74) Lymphocytes (%) (Auto) 16.5% (14-46) Monocytes (%) (Auto) 6.9% (4-12) Eosinophils (%) (Auto) 2.0% (0-5) Basophils (%) (Auto) 0.1% (0-3) Sodium Level 143mEq/L (134-144) Potassium Level 3.8mEq/L (3.5-5.2) Chloride Level 108mEq/L (97-108) Carbon Dioxide Level 20mmol/L (18-29) Blood Urea Nitrogen 12mg/dL (8-27) Creatinine 0.64mg/dL (0.57-1.00) Estimat Glomerular Filtration Rate 133mL/min (>59) Glucose Level 122mg/dL (60-99) Calcium Level 8.2mg/dL (8.5-10.1) Total Bilirubin 0.7mg/dL (0.0-1.2) Aspartate Amino Transf (AST/SGOT) 57U/L (0-50) Alanine Aminotransferase (ALT/SGPT) 72U/L (0-32) Alkaline Phosphatase 135U/L (25-165) Total Protein 5.9g/dL (6.4-8.4) Albumin 3.3g/dL (3.4-5.0) General: Alert, Oriented X3, Cooperative, No Acute Distress Eyes: PERRLA Nose: Mucous Membr Moist/[place] Cardiovascular: Exam Unremarkable Abdomen: Non-tender, Non-distended, No hepatosplenomegaly, Normoactive bowel tones, Other (No gaurding .) Extremities: No cyanosis/clubbing/edma bilat Neurological: Grossly Neurologically Intact Discharge Medications Discharge Medications Amoxicillin (Amoxicillin) 500 Mg Capsule 1,000 MG PO BID Prescribed by: GIANCARLO RUIZ DO Amoxicillin/Clav K 875-125 mg (Augmentin 875-125 mg) 1 Each Tablet 1 TABLET PO BID Prescribed by: GIANCARLO RUIZ DO Cholecalciferol (Vitamin D3) (Vitamin D3) 5,000 Unit Capsule 5,000 UNIT PO DAILY (Reported) Cholestyramine (Cholestyramine Packet) 4 Gm Packet 4 GM PO DAILY (Reported) Lactobacillus Combo No.11 (Probiotic) 1 Each Cap.sprink 1 EACH PO DAILY ( Reported) [place]-3/Dha/Epa/Fish Oil (Fish Oil 1,600 mg/5 ml Liquid) 1,600 Mg-500 Mg-800 Mg/ 5 Ml Liquid 1,600 MG PO DAILY (Reported) As needed Hydrocodone-Acetaminophen 5-325 mg (Hydrocodone-Acetaminophen 5-325 mg) 1 Each Tablet 1 TABLET PO TID PRN PRN For Pain (Reported) Followup Plan Disposition: Home with plan for close FU for imaging studies. Follow-up plan FU with PCP, Dr Johnson via phone tomorrow to discuss CT scan order, and FU appointment currently scheduled November 18 at 5:00pm Discharge Diet: No restrictions Discharge Activity: Limited until seen by PCP Patient Instructions DC with order for CT scan to be obtained in 1-2 days following DC. Time spent 55 minutes Vital Signs Vital Sign - Last Date Time Temp Pulse Resp B/P Pulse Ox O2 Delivery O2 Flow Rate FiO2 11/16/16 12:48 36.8 78 12 154/83 95 Room Air Intake and Output 11/15/16 11/15/16 11/16/16 Cumulative From/Thru 15:00 23:00 07:00 11/14/16 06:44 - 11/16/16 06:21 Intake Total 834 ml 1537 ml 2304 ml 7791 ml Output Total 300 ml 850 ml 1700 ml Balance 834 ml 1237 ml 1454 ml 6091 ml Intake Oral 1100 ml 1120 ml 2880 ml IV Total 834 ml 437 ml 1184 ml 4911 ml Output Urine Total 300 ml 850 ml 1700 ml # Bowel Movements 0 0 0 IVs and Medications Medications Reviewed: Medications were reviewed in detail Lab and Diagnostics Result Diagram: 11/16/16 0556 11/16/16 0556 Giancarlo Ruiz DO Nov 16, 2016 15:26
[2016-11-16] MEDS ORDERED: OXYC5TAB72 PO (15:39)
--- NOTE | 2016-11-16 16:27 | NUR ---
Discharge Pt discharged at 1612 to private vehicle with friend. Pt has discharge instructions, rx's and care notes. All questions answered and has all belongings. A&O x 3, MARTINI, VSS. Pt has had elevated BP's which she states is due to stress and anxiety of being hospitalized. BP prior to discharge was stable. Pt has no c/o pain at this time. Pt instructed to call MD for Ct scan tomorrow and if there is difficulty scheduling she or MD can call Dr. Ruiz here.
--- NOTE | 2016-12-23 10:19 | PATH ---
SURGICAL PATHOLOGY Attending Physician:Sachin Marcus MD CASE STATUS: Signed Out PATIENT NAME: YUNIER RTUJILLO PID: [id number] : 1950 DATE COLLECTED:12/21/2016 00:00 SPECIMEN: Colon, Segment Resection, Non-Tumor CLINICAL HISTORY: DIVERTICULITIS 1). SIGMOID COLON FINAL DIAGNOSIS: 1.RESECTED SEGMENT OF SIGMOID COLON: DIVERTICULOSIS WITH ASSOCIATED CHRONIC DIVERTICULITIS. Negative for malignancy and significant atypia. ICD10 K57 GROSS DESCRIPTION: The specimen is received in formalin, labeled with the patient's name, sublabeled as sigmoid colon and consists of an unoriented segment of colon (length-12.3 cm, resection margin #1 diameter-2.2 cm, resection margin #2 diameter-3.0 cm), with attached mesentery (up to 5.5 cm in depth). The resection margins are received stapled. The mucosa is mojica with normal folds. Multiple diverticuli are identified. No nodules, masses or lesions are identified. Ink code: black-resection margin. Section code: (A) resection margin #1, longitudinally sectioned, contact center representative; (B) resection margin #2, longitudinally sectioned, contact center representative; (C-G) colon segment, serially sectioned from resection margin #1 to #2, contact center representative. 12/22/16 MICRO DESCRIPTION: See diagnosis. ICD-9 CODES: CPT CODES: 1: 68910 Electronically Signed Out Navi Dudley MD [facility] Pathology [facility] [address], [place] [address] Technical component performed at [facility], [facility] [address], [place], [address]
== END 2016-11-16 16:06 | disposition home or self-care (01) | DRG 392 ==
LOC: SED 06:38 → OSC 10:38
PROVIDERS: ADMIT Internal Medicine; ATTEND Internal Medicine
DX: K57.20 Diverticulitis of large intestine with perforation and abscess without bleeding (principal); I10 Essential (primary) hypertension; K76.89 Other specified diseases of liver

== ENCOUNTER 2016-12-03 13:43 | Emergency (ER) | payer OTHER ==
[~2016-12-03] VITALS: Ht 165.1 cm; Wt 81.8 kg
[~2016-12-03 13:43] MED LIST: AMOX-366 PO; AMOX500C2 PO; CHOL5000 PO; HYDR-4003 PO; LACT1CAP73 PO; OMEG1600 PO; OXYC5TAB72 PO; QUE9 PO
[2016-12-03 13:48] VITALS: PULSE 80; RESP 24; O2SAT 100
--- NOTE | 2016-12-03 14:18 | ED.REPORT ---
HPI-Abd Pain F 40 and Over Date of Service December 03, 2016 ED Provider: Mendy Germain MD The patient is a 66 year old female who presents to the emergency department complaining of worsening lower abdominal pain. The patient was admitted from -11/16 for diverticulitis of intestine with perforation and abscess. She was treated with IV Zosyn and fluids while in the hospital, and discharged home on Augmentin and amoxicillin, as well as oxycodone and Zofran. She was recommended to followup with her PCP and have an outpatient abdominal CT scan within 1-2 days of discharge. She states she is scheduled to have a hemicolectomy in early December. The patient presents today complaining of worsening lower abdominal pain and vomiting that began on Tuesday. She also complains of nausea and decreased appetite. Her nausea and vomiting is relieved with Zofran. She has had one episode of diarrhea since she has been in the department. She is still on antibiotics and has been since she was discharged home on the . Nursing Notes Stated Complaint: PAIN Chief Complaint: Female Abdominal Pain Nursing Notes Reviewed: Yes Allergies: Coded Allergies: ciprofloxacin (Verified Allergy, Unknown, Rash, 11/14/16) metronidazole (Verified Allergy, Unknown, 12/03/16) Scheduled Amoxicillin (Amoxicillin) 500 Mg Capsule 1,000 MG PO BID Amoxicillin/Clav K 875-125 mg (Augmentin 875-125 mg) 1 Each Tablet 1 TABLET PO BID Cholecalciferol (Vitamin D3) (Vitamin D3) 5,000 Unit Capsule 5,000 UNIT PO DAILY Cholestyramine (Cholestyramine Packet) 4 Gm Packet 4 GM PO DAILY Lactobacillus Combo No.11 (Probiotic) 1 Each Cap.sprink 1 EACH PO DAILY Metronidazole (Flagyl) 500 Mg Tablet 500 MG PO Q8H [place]-3/Dha/Epa/Fish Oil (Fish Oil 1,600 mg/5 ml Liquid) 1,600 Mg-500 Mg-800 Mg/ 5 Ml Liquid 1,600 MG PO DAILY Ondansetron ODT (Ondansetron ODT) 4 Mg Tab.rapdis 4 MG PO TID Potassium Chloride (Potassium Chloride) 10 Meq Capsule.er 10 MEQ PO DAILY TAKE WITH FOOD Scheduled PRN Hydrocodone-Acetaminophen 5-325 mg (Hydrocodone-Acetaminophen 5-325 mg) 1 Each Tablet 1 TABLET PO TID PRN PRN For Pain Oxycodone (Roxicodone) 5 Mg Tablet 5-15 MG PO Q4H PRN PRN For Pain oxyCODONE (oxyCODONE) 5 Mg Tablet 5-10 MG PO Q4H PRN PRN For Moderate Pain General Time Seen by MD: 14:08 Chief Complaint Abdominal pain Hx Obtained From: Patient Arrived By: Walk-in Sudden in Onset?: Yes Onset Occurred: 2 days ago Symptom Duration: Since onset Progression since Onset: Constant, Gradually worsening Location: : Abdomen lower Quality: Painful Severity: Current: Moderate Severity: Maximum: Severe Associated with: Reports: Anorexia, Diarrhea, Nausea, Vomiting Pertinent Negative: Pt denies other symptoms Recent Healthcare: Recent doctor visit, Recent hospitalization Similar Sx Previous: Yes Past Medical History Past Medical History Notes: PCP: Dr. Johnson Past Medical History Recent diagnosis of diverticulitis with perforation and abscess Reports: Hypertension Past Surgical History Reports: Cholecystectomy Family History Noncontributory Smoking History Never Smoker Social History Alcohol Use: 1-3 per day Other Social History: Good social support, Local resident Ambulatory Status Independent Review of Systems GI: Reports: Abdominal pain, Anorexia, Diarrhea, Nausea, Vomiting Complete sys rev & neg: except as marked. Physical Exam Vital Signs Vital Signs (First) Date Time Temp Pulse Resp B/P Pulse Ox O2 Delivery O2 Flow Rate FiO2 12/03/16 13:48 36.8 80 24 100 Room Air 12/03/16 15:58 152/71 Initial VS: Reviewed Head / Eyes: Atraumatic, Normocephalic, PERRL ENT: Mucous membranes moist, Conjunctiva normal, No scleral icterus Neck: Supple, Non-tender, Full range of motion Lymphatic: No lymphadenopathy Extremities: Vascular intact, Neuro intact, No swelling, No tenderness Skin: Warm, Dry, No cyanosis Neurologic: Alert, Oriented, Nonfocal Psychiatric: Mood/affect normal, Behavior normal, Normal thought content General/Constitutional: Awake, Alert, Cooperative Appearance / Presentation: Positive: In pain, Uncomfortable Respiratory / Chest: Atraumatic, Breath sounds NL, Breath sounds = bilat, No respiratory distress, No rales, No rhonchi, No wheezing, No stridor Cardiovascular: Heart rate NL, Regular rhythm, Heart sounds NL, No murmurs, No rubs, Peripheral circulation NL Abdomen: Soft, McBurney's non-tender, No guarding, No rebound, BS normoactive, No distention, No hernia, No palpable mass, No pulsatile mass Tenderness/Guarding/Rebound: Positive: Tender diffuse Bowel Sounds / Distention: Positive: Bowel sounds hypoactive No rebound or guarding in the LLQ. Back: Inspection NL, Non-tender, No CVA tenderness Interpretation & Diagnostics Lab Results Interpretation Result Diagram: 12/03/16 1425 12/03/16 1425 Test 12/03/16 14:25 12/03/16 16:06 White Blood Count 5.6th/mm3 (3.8-10.1) Red Blood Count 4.34mil/mm3 (3.90-5.20) Hemoglobin 12.8g/dL (12.0-15.6) Hematocrit 37.1% (35.0-46.0) Mean Corpuscular Volume 85.5fL (81-100) Mean Corpuscular Hemoglobin 29.5pg (27.0-35.0) Mean Corpuscular Hemoglobin Concent 34.5% (32.0-37.0) Red Cell Distribution Width 13.9% (12.3-15.4) Platelet Count 358bil/L (150-400) Neutrophils (%) (Auto) 54.0% (40-74) Lymphocytes (%) (Auto) 35.4% (14-46) Monocytes (%) (Auto) 8.4% (4-12) Eosinophils (%) (Auto) 1.6% (0-5) Basophils (%) (Auto) 0.4% (0-3) Hold Blue Top Tube Received (Received) Sodium Level 143mEq/L (134-144) Potassium Level 2.8mEq/L (3.5-5.2) Chloride Level 103mEq/L (97-108) Carbon Dioxide Level 22mmol/L (18-29) Blood Urea Nitrogen 14mg/dL (8-27) Creatinine 0.96mg/dL (0.57-1.00) Estimat Glomerular Filtration Rate 83mL/min (>59) Glucose Level 131mg/dL (60-99) Calcium Level 9.2mg/dL (8.5-10.1) Magnesium Level 1.5mg/dL (1.6-2.6) Total Bilirubin 0.5mg/dL (0.0-1.2) Aspartate Amino Transf (AST/SGOT) 28U/L (0-50) Alanine Aminotransferase (ALT/SGPT) 28U/L (0-32) Alkaline Phosphatase 104U/L (25-165) Total Protein 7.4g/dL (6.4-8.4) Albumin 4.2g/dL (3.4-5.0) Lipase 13U/L (13-60) Hold Marcus Top Tube Received (Received) Hold Urine Received (Received) CT Abd / Pelvis Interpretation IMPRESSION: Prominent diverticulosis involving the sigmoid colon with definite acute but relatively mild acute diverticulitis causing peridiverticular inflammation but no peridiverticular abscess. Prior cholecystectomy. No additional acute disease is found. Dictated by: Adam Jules M.D. on 12/03/2016 at 15:50 Study type: Abdominal CT IV contrast Interpretation / Wet Read by: Interpret - Radiologist Re-Eval/Medical Decision Source of Hx: Old records Re-Evaluation/Progress #1: Time of Eval: 14:38 Re-Evaluation/Progress Note: Her pain is continuing to worsen. Re-Evaluation/Progress #2: Time of Eval: 14:39 Re-Evaluation/Progress Note: Discussed plan for CT scan. Re-Evaluation/Progress #3: Time of Eval: 17:04 Re-Evaluation/Progress Note: Rechecked the patient. Discussed results, diagnosis, and options for disposition. The patient would like to go home and continue the antibiotics and will followup with her regular doctors. Counseled Regarding: Diagnosis, Lab results, Need for follow-up, When/why to return to ED Discharge & Departure Primary Impression: Diverticulitis Diverticulitis site: unspecified part of intestinal tract Diverticulitis bleeding: without bleeding Diverticulitis complication: without perforation or abscess Qualified Code: K57.92 - Diverticulitis of intestine, part unspecified, without perforation or abscess without bleeding Additional Impression: Hypokalemia Ruled Out: Intestinal abscess, Intestinal perforation Disposition: Home Discharge Condition All VS Reviewed: Yes Condition: Stable Patient Instructions: Diverticulitis (ED) Additional Instructions: Thank you for entrusting us with your care today. We have discussed your options and together we have decided it is safe for you go home. You do have a surgeon following you for this problem currently and you will need to call her on Tuesday and let her know you are a bit worse and we've added the flagyl back in. I will electronically send your CT to the [facility] so she can access the study. I've given you a copy of the CT results. Continue the antibiotics, augmentin, that were previously prescribed. Start taking the Flagyl 500mg 3x/day. Use Zofran as needed for your nausea and vomiting. Use Oxycodone as needed for your pain. Do not drink alcohol, drive, or work while taking this medication. You may become constipation while taking the narcotics. I recommend drinking plenty of fluids, eating a high fiber diet, and use over the counter stool softeners as needed. Followup with your regular doctors that are managing your diverticulitis. Your potassium was low today. I have written you a prescription for potassium for the next few days. Return to the emergency department for increased pain, uncontrollable vomiting, bloody stools or vomit, fever, or any other new or worsening symptoms. All of the medication, except the pain pills, have been electronically transmitted to [facility] for you today. Scribe Attestation Portions of this note were transcribed by Vonnie Marcus. I, Dr. Germain personally performed the history, physical exam and medical decision-making; I reviewed and confirmed the accuracy of the information in the transcribed note. Signed by: Raine Knight,12/03/2016 at 1730. Mendy Germain MD December 03, 2016 14:18 Vonnie Marcus December 03, 2016 14:26
[2016-12-03] MEDS ORDERED: 0.9% Sodium Chloride 1,000 ML IV ONE (14:19)
[2016-12-03] MEDS ORDERED: Ondansetron 2 mg/mL 2 mL Inj IVPUSH ONE (14:20)
[2016-12-03] MEDS ORDERED: HYDROmorphone 1 mg/mL Inj IVPUSH PRN (14:40)
[2016-12-03] MEDS ORDERED: HYDROmorphone 1 mg/mL Inj IVPUSH ONE (14:40)
[2016-12-03 14:41] LABS: BASOPHILS % (AUTO) 0.4 % (0-3); EOSINOPHILS % (AUTO) 1.6 % (0-5); MONOCYTES % (AUTO) 8.4 % (4-12); Mean Corpuscular Hemoglobin 29.5 pg (27.0-35.0); Mean Corpuscular Volume 85.5 fL (81-100); Platelet Count 358 bil/L (150-400)
[2016-12-03 15:07] LABS: Magnesium 1.5 mg/dL (1.6-2.6)
--- NOTE | 2016-12-03 15:56 | DRSVH ---
PROCEDURE: CT ABDOMEN AND PELVIS WITH CONTRAST ([id number]) INDICATIONS: abdominal pain TECHNIQUE: After the administration of intravenous contrast, 5 mm thick sections acquired from the diaphragm to the symphysis. 5 mm coronal and sagittal reformats were acquired. For radiation dose reduction, the following was used: automated exposure control, adjustment of mA and/or kV according to patient joyce velasquez. COMPARISON: [facility], CT, CT ABD PELVIS W CON, 11/18/2016, 15:22. [facility], CT, CT ABD PELVIS W CON, 11/14/2016, 8:32. FINDINGS: Image quality: Excellent. ABDOMEN: Lung bases: Lung bases are clear. Heart size is normal. Solid organs: Liver and spleen are normal in size and enhancement. There is a hepatic cyst at the u pper anterior and the lower anterior aspect of the liver, and no solid mass lesion is seen. Focal fa tty infiltration is present at the anterior border of the fissure for the falciform ligament. Gallbl adder has been previously resected. Biliary system is non dilated. Pancreas enhances normally. No adrenal nodules. Kidneys demonstrate normal size and enhancement, without hydronephrosis. Peritoneum and bowel: Bowel loops demonstrate normal wall thickness and caliber. No free fluid or a ir. Nodes and vessels: No retroperitoneal or mesenteric adenopathy by size criteria. Aorta and inferior vena cava are normal in size. Miscellaneous: No ventral hernias. PELVIS: Genitourinary: Bladder wall thickness is normal. Miscellaneous: No inguinal hernias or adenopathy. Within the left lower quadrant diverticulosis is prominent involving the sigmoid colon and there is acute diverticulitis that is mild in severity with out peridiverticular abscess formation. Bones: No suspicious bony lesions. No vertebral body compression fractures. IMPRESSION: Prominent diverticulosis involving the sigmoid colon with definite acute but relatively m ild acute diverticulitis causing peridiverticular inflammation but no peridiverticular abscess. Prio r cholecystectomy. No additional acute disease is found. Dictated by: Adam Jules M.D. on 12/03/2016 at 15:50 Approved by: Adam Jules M.D. on 12/03/2016 at 15:55
[2016-12-03 15:58] VITALS: BP 152/71; PULSE 72; RESP 18; O2SAT 97
[2016-12-03] MEDS ORDERED: Potassium Chloride 20 mEq SR Tablet PO ONE (17:00)
[2016-12-03] MEDS ORDERED: POTA10CA42 PO (17:18)
[2016-12-03] MEDS ORDERED: OXYC-474 PO (17:18)
[2016-12-03] MEDS ORDERED: ONDA4TAB12 PO (17:18)
[2016-12-03] MEDS ORDERED: METR500T PO (17:18)
[2016-12-03 17:47] VITALS: BP 152/70; PULSE 79; RESP 18; O2SAT 96
== END 2016-12-03 17:48 | disposition home or self-care (01) ==
LOC: SED 13:43
DX: K57.92 Diverticulitis of intestine, part unspecified, without perforation or abscess without bleeding (principal); E87.6 Hypokalemia; I10 Essential (primary) hypertension; Z88.1 Allergy status to other antibiotic agents; Z88.8 Allergy status to other drugs, medicaments and biological substances
CPT/HCPCS: 36415; 74177; 80053; 83690; 83735; 85025; 96361; 96374; 96375; 99285; J1170; J2405; J7030; Q9967

== ENCOUNTER 2016-12-16 13:37 | Inpatient (IN) | payer OTHER, MEDICARE ==
[2016-12-16] VITALS (8 sets, daily range): BP systolic 139–166; BP diastolic 67–89; PULSE 68–79; RESP 17–26; O2SAT 96–100
[~2016-12-16] VITALS: Ht 165.1 cm; Wt 75.1 kg
[~2016-12-16 13:37] MED LIST changes: +METR500T PO; +ONDA4TAB12 PO; +OXYC-474 PO; +POTA10CA42 PO
[2016-12-16] MEDS ORDERED: 0.9% Sodium Chloride 1,000 ML IV ONE ×2 (14:15→14:35)
[2016-12-16] MEDS ORDERED: Ondansetron 2 mg/mL 2 mL Inj IVPUSH ONE (14:15)
--- NOTE | 2016-12-16 14:20 | ED.REPORT ---
HPI-Abd Pain F 40 and Over Date of Service December 16, 2016 ED Provider: Nursing Notes Stated Complaint: ABDOMINAL PAIN Chief Complaint: Female Abdominal Pain Nursing Notes Reviewed: Yes (M) Allergies: Coded Allergies: ciprofloxacin (Verified Allergy, Unknown, Rash, 11/14/16) metronidazole (Verified Allergy, Unknown, 12/03/16) Scheduled Amoxicillin (Amoxicillin) 500 Mg Capsule 1,000 MG PO BID Amoxicillin/Clav K 875-125 mg (Augmentin 875-125 mg) 1 Each Tablet 1 TABLET PO BID Cholecalciferol (Vitamin D3) (Vitamin D3) 5,000 Unit Capsule 5,000 UNIT PO DAILY Cholestyramine (Cholestyramine Packet) 4 Gm Packet 4 GM PO DAILY Lactobacillus Combo No.11 (Probiotic) 1 Each Cap.sprink 1 EACH PO DAILY Metronidazole (Flagyl) 500 Mg Tablet 500 MG PO Q8H [place]-3/Dha/Epa/Fish Oil (Fish Oil 1,600 mg/5 ml Liquid) 1,600 Mg-500 Mg-800 Mg/ 5 Ml Liquid 1,600 MG PO DAILY Ondansetron ODT (Ondansetron ODT) 4 Mg Tab.rapdis 4 MG PO TID Potassium Chloride (Potassium Chloride) 10 Meq Capsule.er 10 MEQ PO DAILY TAKE WITH FOOD Scheduled PRN Hydrocodone-Acetaminophen 5-325 mg (Hydrocodone-Acetaminophen 5-325 mg) 1 Each Tablet 1 TABLET PO TID PRN PRN For Pain Oxycodone (Roxicodone) 5 Mg Tablet 5-15 MG PO Q4H PRN PRN For Pain oxyCODONE (oxyCODONE) 5 Mg Tablet 5-10 MG PO Q4H PRN PRN For Moderate Pain General Time Seen by MD: 14:15 Physical Exam Vital Signs Vital Signs (First) Date Time Temp Pulse Resp B/P Pulse Ox O2 Delivery O2 Flow Rate FiO2 12/16/16 13:53 36.6 79 26 166/89 97 Room Air 12/16/16 15:51 2 Initial VS: Reviewed, Vital signs normal (HTN) Interpretation & Diagnostics Lab Results Interpretation Result Diagram: 12/16/16 1428 12/16/16 1428 Test 12/16/16 14:28 White Blood Count 10.0th/mm3 (3.8-10.1) Red Blood Count 4.95mil/mm3 (3.90-5.20) Hemoglobin 14.2g/dL (12.0-15.6) Hematocrit 41.4% (35.0-46.0) Mean Corpuscular Volume 83.6fL (81-100) Mean Corpuscular Hemoglobin 28.7pg (27.0-35.0) Mean Corpuscular Hemoglobin Concent 34.3% (32.0-37.0) Red Cell Distribution Width 14.7% (12.3-15.4) Platelet Count 320bil/L (150-400) Neutrophils (%) (Auto) 65.8% (40-74) Lymphocytes (%) (Auto) 24.1% (14-46) Monocytes (%) (Auto) 8.9% (4-12) Eosinophils (%) (Auto) 0.6% (0-5) Basophils (%) (Auto) 0.3% (0-3) Sodium Level 144mEq/L (134-144) Potassium Level 2.8mEq/L (3.5-5.2) Chloride Level 99mEq/L (97-108) Carbon Dioxide Level 21mmol/L (18-29) Blood Urea Nitrogen 13mg/dL (8-27) Creatinine 0.85mg/dL (0.57-1.00) Estimat Glomerular Filtration Rate 96mL/min (>59) Glucose Level 157mg/dL (60-99) Lactic Acid Level 2.8mmol/L (0.4-2.0) Calcium Level 10.1mg/dL (8.5-10.1) Magnesium Level 1.4mg/dL (1.6-2.6) Total Bilirubin 0.7mg/dL (0.0-1.2) Aspartate Amino Transf (AST/SGOT) 33U/L (0-50) Alanine Aminotransferase (ALT/SGPT) 18U/L (0-32) Alkaline Phosphatase 90U/L (25-165) Total Protein 8.0g/dL (6.4-8.4) Albumin 4.1g/dL (3.4-5.0) Lipase 16U/L (13-60) Re-Eval/Medical Decision Source of Hx: Old records Colin Ames MD December 16, 2016 14:20 Vonnie Marcus December 16, 2016 16:04
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
[2016-12-16] MEDS: HYDROmorphone 1 mg/mL Inj IVPUSH PRN ×2 (14:27→14:50)
[2016-12-16] MEDS ORDERED: Piperacillin-Tazo 3.375 Gm Inj 3.375 GM in Dextrose 5% Minibag Plus 50 ML IV ONE (14:30)
[2016-12-16 14:45] LABS: BASOPHILS % (AUTO) 0.3 % (0-3); EOSINOPHILS % (AUTO) 0.6 % (0-5); MONOCYTES % (AUTO) 8.9 % (4-12); Mean Corpuscular Hemoglobin 28.7 pg (27.0-35.0); Mean Corpuscular Volume 83.6 fL (81-100); NEUTROPHILS % (AUTO) 65.8 % (40-74); Platelet Count 320 bil/L (150-400)
[2016-12-16 15:05] LABS: Magnesium 1.4 mg/dL (1.6-2.6)
--- NOTE | 2016-12-16 16:00 | DRSVH ---
PROCEDURE: CT ABDOMEN AND PELVIS WITH CONTRAST ([id number]) INDICATIONS: Abd pain, refractory diverticulitis TECHNIQUE: After the administration of intravenous contrast, 5 mm thick sections acquired from the diaphragm to the symphysis. 5 mm coronal and sagittal reformats were acquired. For radiation dose reduction, the following was used: automated exposure control, adjustment of mA and/or kV according to patient joyce velasquez. COMPARISON: [facility], CT, CT ABD PELVIS W CON, 12/03/2016, 15:36. FINDINGS: Image quality: Excellent. ABDOMEN: Lung bases: Lung bases are clear. Heart size is normal. Solid organs: Liver and spleen are normal in size. Hepatic cyst is unchanged. Gallbladder has been r emoved. Biliary system is non dilated. Pancreas enhances normally. No adrenal nodules. Kidneys de monstrate normal size and enhancement, without hydronephrosis. Peritoneum and bowel: Bowel loops demonstrate mild fluid-filled prominence of small bowel loops, new compared to prior exam. There remains a mild appearance of thickening within the descending and sigm oid colon with diverticula. Overall appearance and adjacent pericolonic stranding has decreased darrin red to prior exam. Nodes and vessels: No retroperitoneal or mesenteric adenopathy by size criteria. Aorta and inferior vena cava are normal in size. Miscellaneous: No ventral hernias. PELVIS: Genitourinary: Bladder wall thickness is normal. Miscellaneous: No inguinal hernias or adenopathy. Bones: No suspicious bony lesions. No vertebral body compression fractures. IMPRESSION: 1. Persistent appearance of thickening within the descending and sigmoid colon. However, overall appe arance has improved compared to prior exam and appears consistent with improving diverticulitis. 2. Interval development of mild fluid-filled small bowel loops. This is suggestive of developing part ial small bowel obstruction. Dictated by: Dory Tsang M.D. on 12/16/2016 at 15:47 Approved by: Dory Tsang M.D. on 12/16/2016 at 15:59
[2016-12-16] MEDS ORDERED: Magnesium Sulf 2 Gm/50mL Water 2 GM in IV Premix 1 EACH IV ONE (16:15)
--- NOTE | 2016-12-16 16:23 | PCM.CONSUR ---
Subjective Date of Service: December 16, 2016 History of Present Illness Ms. Ronquillo is a 66 year old female with a past medical history of diverticulitis who presents to the ED secondary to diffuse abdominal pain which has been chronic in nature over the last month, requiring hospitalization that has gotten much worse over the last few days. Her pain is diffuse over her whole abdomen and it feels like a "pressure". She states that she has had accompanied N/V which has also been persistent over the last month and has gotten worse over the last few weeks. She is passing both gas and stool though states that her pain worsens with bowel movements. She has been having chills at home, unknown if she has had fevers. Review of systems otherwise negative. She was originally diagnosed with sigmoid diverticulosis in 03/2009, her last colonoscopy was 4-5 years ago. She was hospitalized at [facility] 11/14/2016 to 2016 for diverticulitis with concern for a developing abscess and microperforation. At discharge she was given both Augmentin and Amoxicillin. She was scheduled to leave for vacation to [place] for two weeks starting on but her trip was unfortunately cancelled as this abscess appeared to be in creasing in size on repeat CT done on 11/18/2016. She again presented to the ED on 12/03/2016 for worsening lower abdominal pain. CT at this visit showed no peridiverticular abscess. At discharge Augmentin was continued and Flagyl was started, and she completed her course of this ABX 2 days ago. She was also recently started on acyclovir secondary to mild shingle outbreak on her chest that has since resolved. She is followed by her PCP who tested her for C-diff with negative result. She is also followed by a colorectal surgeon at [place] Dr. Akins, and has a colectomy scheduled for January 04. She was instructed to present to the ED if her pain became worse in order to move up the surgery timeline. Reason for Consultation Sigmoidal Diverticulitis Allergy Allergies: Coded Allergies: ciprofloxacin (Verified Allergy, Unknown, Rash, 11/14/16) metronidazole (Verified Allergy, Unknown, 12/03/16) Medications Amoxicillin/Clav K 875-125 mg (Augmentin 875-125 mg) 1 Each Tablet 1 TABLET PO BID Prescribed by: GIANCARLO SEE DO Last Taken: Unknown Dose on 12/16/16 0900 Cholecalciferol (Vitamin D3) ( Vitamin D3) 5,000 Unit Capsule 5,000 UNIT PO DAILY (Reported) Last Taken: Unknown Dose on 11/13/16 Cholestyramine (Cholestyramine Packet) 4 Gm Packet 4 GM PO DAILY (Reported) Last Taken: Unknown Dose on 11/13/16 Lactobacillus Combo No.11 (Probiotic) 1 Each Cap.sprink 1 EACH PO BID (Reported) Last Taken: Unknown Dose on 12/16/16 0900 [place]-3/Dha/Epa/Fish Oil (Fish Oil 1,600 mg/5 ml Liquid) 1,600 Mg-500 Mg-800 Mg/5 Ml Liquid 1,600 MG PO DAILY ( Reported) Last Taken: Unknown Dose on 11/13/16 Ondansetron ODT (Ondansetron ODT) 4 Mg Tab.rapdis 4 MG PO TID Prescribed by: JUNAID PRITCHETT MD Last Taken: Unknown Dose on 12/16/16 0900 Potassium Chloride (Potassium Chloride) 10 Meq Capsule.er 10 MEQ PO DAILY TAKE WITH FOOD Prescribed by: JUNAID PRITCHETT MD Last Taken: Unknown Dose on 12/15/16 oxyCODONE (oxyCODONE) 5 Mg Tablet 5-10 MG PO Q4H PRN PRN For Moderate Pain Prescribed by: GIANCARLO SEE DO Last Taken: 5 MG on 12/16/16 1100 Discontinued Medications Amoxicillin (Amoxicillin) 500 Mg Capsule 1,000 MG PO BID Prescribed by: GIANCARLO SEE DO Hydrocodone-Acetaminophen 5-325 mg (Hydrocodone-Acetaminophen 5-325 mg) 1 Each Tablet 1 TABLET PO TID PRN PRN For Pain (Reported) Metronidazole (Flagyl) 500 Mg Tablet 500 MG PO Q8H Prescribed by: JUNAID PRITCHETT MD Oxycodone (Roxicodone) 5 Mg Tablet 5-15 MG PO Q4H PRN PRN For Pain Prescribed by: JUNAID PRITCHETT MD Past Surgical History Surgeries: Yes (galbladder) Social History Hx Alcohol Use: Yes Hx Substance Use: No PMH Other History Other History/Comments Past medical History significant for HTN and diverticulosis Social History Hx Alcohol Use: YesHx Substance Use: No Smoking Status: Unknown if Ever Smoker Family History Family History: Denies pertinent family history Objective Exam Vital Signs & I/O Vital Sign- Last 8 Hours Date Time Temp Pulse Resp B/P Pulse Ox O2 Delivery O2 Flow Rate FiO2 12/16/16 15:51 36.9 79 17 139/67 98 Nasal Cannula 2 12/16/16 13:53 36.6 79 26 166/89 97 Room Air Lab & Micro Results Laboratory Tests Test 12/16/16 14:28 White Blood Count 10.0th/mm3 (3.8-10.1) Red Blood Count 4.95mil/mm3 (3.90-5.20) Hemoglobin 14.2g/dL (12.0-15.6) Hematocrit 41.4% (35.0-46.0) Mean Corpuscular Volume 83.6fL (81-100) Mean Corpuscular Hemoglobin 28.7pg (27.0-35.0) Mean Corpuscular Hemoglobin Concent 34.3% (32.0-37.0) Red Cell Distribution Width 14.7% (12.3-15.4) Platelet Count 320bil/L (150-400) Neutrophils (%) (Auto) 65.8% (40-74) Lymphocytes (%) (Auto) 24.1% (14-46) Monocytes (%) (Auto) 8.9% (4-12) Eosinophils (%) (Auto) 0.6% (0-5) Basophils (%) (Auto) 0.3% (0-3) Sodium Level 144mEq/L (134-144) Potassium Level 2.8mEq/L (3.5-5.2) Chloride Level 99mEq/L (97-108) Carbon Dioxide Level 21mmol/L (18-29) Blood Urea Nitrogen 13mg/dL (8-27) Creatinine 0.85mg/dL (0.57-1.00) Estimat Glomerular Filtration Rate 96mL/min (>59) Glucose Level 157mg/dL (60-99) Lactic Acid Level 2.8mmol/L (0.4-2.0) Calcium Level 10.1mg/dL (8.5-10.1) Magnesium Level 1.4mg/dL (1.6-2.6) Total Bilirubin 0.7mg/dL (0.0-1.2) Aspartate Amino Transf (AST/SGOT) 33U/L (0-50) Alanine Aminotransferase (ALT/SGPT) 18U/L (0-32) Alkaline Phosphatase 90U/L (25-165) Total Protein 8.0g/dL (6.4-8.4) Albumin 4.1g/dL (3.4-5.0) Lipase 16U/L (13-60) Result Diagram: 12/16/16 1428 12/16/16 1428 H&P Surgical Exam Exam General: Alert, Oriented X3 Respiratory: Clear to Auscultation Abdomen: Soft, Other (Tender to palpation LLQ, diffusly tender other quadrents. No masses felt, no ridgidity, no guarding) Assessment & Plan Assessment Assessment and Plan: Sigmoid diverticulitis - IV ABX - IV pain medications - IV fluids - Will continue to closely monitor Attending Statement: I personally interviewed and examined the pt, and I agree with Dr. Sullivan's assessment and plan. Bowel rest and IV abx for now. LYDIA SULLIVAN DO December 16, 2016 16:23 David Parra MD December 19, 2016 16:11
[2016-12-16 16:36] LABS: APPEARANCE,URINE CLEAR (CLEAR,HAZY); COLOR,URINE YELLOW (YELLOW); OCCULT BLOOD,URINE NEGATIVE (NEGATIVE); PH,URINE 5.5 (5.0-8.0); UROBILINOGEN,URINE NORMAL (NORMAL)
[2016-12-16] MEDS: KCl 40 mEq/500 mL D5W (K < 3 & Creat <2) IV SCH ×2 (17:25→21:39)
[2016-12-16] MEDS ORDERED: Alum-Mag Hydrox-Simeth 30 mL Suspension PO PRN (17:45)
[2016-12-16] MEDS: Dextrose 5% 500 ML IV SCH (17:45)
[2016-12-16] MEDS ORDERED: 0.9% Sodium Chloride 1,000 ML IV SCH (17:45)
[2016-12-16] MEDS ORDERED: Polyethylene Glycol (PEG) 17 Gm Powder PO PRN (18:25)
[2016-12-16] MEDS ORDERED: PEG/Electrolytes 4,000 mL Solution PO ONE (18:25)
--- NOTE | 2016-12-16 18:36 | PCM.HPMED ---
Subjective Date of Service December 16, 2016 Primary Provider: Admitting Physician: Alistair Parrish MD Primary Care Physician: Other,Physician Attending Physician: Alistair Parrish MD Admit Status: From the Emergency Department, Full Admit, Admit to [facility], [facility] Telemetry Chief Complaint: Nausea, dehydration and hypokalemia. 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 That time she was admitted for abdominal pain and found to have sigmoid diverticulitis. She was treated with IV antibiotics and went home on the . A second CT scan was obtained shortly thereafter which indicated an increased peridiverticular abscess. She canceled a trip to [place] for that reason. She has been on oral antibiotics, Augmentin since the initial discharge. On December 03 at worksheet increased pain leading to evaluation with CT scan which revealed resolution of the abscess but persistent diverticulitis. Oral Flagyl was added to her regimen. Because of her persistent diverticulitis planning for a surgical intervention ensued. She was scheduled for a sigmoid colectomy on January [address] Parsons at [facility]. However the patient's been having a lot of nausea and vomiting with her Flagyl. On December 06 she developed shingles and was noted to have hypokalemia. She was started on potassium and acyclovir and continued use oxycodone. This did lead to anorexia. The anorexia is no progressive. She has had a lot of early satiety and nausea and some vomiting now for at least a week and a half. She has been sustaining himself on Jell-O on ice chips. She has had increased pain right left lower quadrant and a feeling of pressure. She has been vomiting for last 5 days. She has had loose bowel movements free of blood or mucus. She has lost 15 pounds. Review of Systems: She does feel weak, dehydrated, thirsty. She has no appetite. She denies any hematuria or dysuria. All else was reviewed and otherwise unremarkable except as noted on history of present illness. Allergies Coded Allergies: ciprofloxacin (Verified Allergy, Unknown, Rash, 11/14/16) metronidazole (Verified Allergy, Unknown, 12/03/16) Home Medications Amoxicillin (Amoxicillin) 500 Mg Capsule 1,000 MG PO BID Amoxicillin/Clav K 875-125 mg (Augmentin 875-125 mg) 1 Each Tablet 1 TABLET PO BID Cholecalciferol (Vitamin D3) (Vitamin D3) 5,000 Unit Capsule 5,000 UNIT PO DAILY Cholestyramine (Cholestyramine Packet) 4 Gm Packet 4 GM PO DAILY Lactobacillus Combo No.11 (Probiotic) 1 Each Cap.sprink 1 EACH PO DAILY Metronidazole (Flagyl) 500 Mg Tablet 500 MG PO Q8H Burke-3/Dha/Epa/Fish Oil (Fish Oil 1,600 mg/5 ml Liquid) 1,600 Mg-500 Mg-800 Mg/ 5 Ml Liquid 1,600 MG PO DAILY Ondansetron ODT (Ondansetron ODT) 4 Mg Tab.rapdis 4 MG PO TID Potassium Chloride (Potassium Chloride) 10 Meq Capsule.er 10 MEQ PO DAILY TAKE WITH FOOD Scheduled PRN Hydrocodone-Acetaminophen 5-325 mg (Hydrocodone-Acetaminophen 5-325 mg) 1 Each Tablet 1 TABLET PO TID PRN PRN For Pain Oxycodone (Roxicodone) 5 Mg Tablet 5-15 MG PO Q4H PRN PRN For Pain PMH 1. Persistent diverticulitis as noted 2. Recent episode of shingles 3. Recent complication of hypokalemia. Surgical History No major surgeries. Family History Negative for diverticulitis Social History Occupation: she works as an ICU nurse in [employer] Alcohol Use: Yes Hx Substance Use: No Smoking Status: Unknown if Ever Smoker Living Arrangement: with Family Exam Vital Signs Vital Sign - Last Date Time Temp Pulse Resp B/P Pulse Ox O2 Delivery O2 Flow Rate FiO2 12/16/16 15:51 36.9 79 17 139/67 98 Nasal Cannula 2 Exam Oriented 3. No distress. Fluent speech. Normal affect. Normal skull. Normal nose and ears. Anicteric sclera, symmetric pupils Oropharynx is unremarkable suffered dry mucosa, no facial droop. Neck is supple, normal thyroid. No adenopathy. Lungs are clear, normal effort rate. Heart is regular without murmur gallop or rub. Abdomen soft, nondistended or tender. Extremities are free of pedal edema. Good radial and pedal pulses. Skin is free of rash, lesions. Decreased turgor. No petechiae or ecchymosis. Joints are grossly normal. Cranial nerves are grossly normal. Motor strength is normal in all extremities. Normal muscular tone. Lab and Diagnostics Result Diagram: 12/16/16 1428 12/16/16 1428 Assessment & Plan 1. Sigmoid diverticulitis, POA. The plan is to continue IV Zosyn at this point. Surgery was consulted and requested prep for colonoscopy. The patient notes that she feels she cannot wait until January 04 for surgical intervention. 2. Probable ileus by CT scan today, POA. The plan is nothing by mouth. We will follow her clinically. 3. Volume depletion, POA. We will fluid resuscitate with normal saline at 100 per hour. 4. Hypokalemia, POA. We will replete and follow serial potassium measurements. Telemetry monitoring. The patient is full resuscitation, confirmed tonight She is admitted inpatient status with over 2 nights expected. Pain Evaluation: Adequate Pain Control Resuscitation Status: CPR: Attempt Resuscitation Time spent 45 minutes Alistair Parrish MD December 16, 2016 18:36
[2016-12-16] MEDS: 0.9% Sodium Chloride 1,000 ML IV SCH (19:04)
[2016-12-16] MEDS: Ondansetron 2 mg/mL 2 mL Inj IVPUSH PRN (19:35)
[2016-12-16] MEDS: HYDROmorphone PCA 0.2 mg/mL 30 mL Inj IV PRN (20:18)
[2016-12-16] MEDS: Heparin 5,000 Unit/mL Inj SUBQ SCH (20:19)
[2016-12-17] VITALS (10 sets, daily range): BP systolic 123–164; BP diastolic 76–106; PULSE 65–95; RESP 12–18; O2SAT 92–98
[2016-12-17] MEDS: Heparin 5,000 Unit/mL Inj SUBQ SCH ×3 (00:30→17:55)
[2016-12-17] MEDS: Piperacillin-Tazo 3.375 Gm Inj 3.375 GM in Dextrose 5% Minibag Plus 50 ML IV SCH ×3 (00:56→17:52)
[2016-12-17 02:50] LABS: BASOPHILS % (AUTO) 0.4 % (0-3); EOSINOPHILS % (AUTO) 2.5 % (0-5); MONOCYTES % (AUTO) 12.7 % (4-12); Mean Corpuscular Hemoglobin 28.8 pg (27.0-35.0); Mean Corpuscular Volume 85.1 fL (81-100); NEUTROPHILS % (AUTO) 44.9 % (40-74); Platelet Count 232 bil/L (150-400)
[2016-12-17 03:13] LABS: Magnesium 1.6 mg/dL (1.6-2.6)
--- NOTE | 2016-12-17 04:43 | NUR ---
Admit/ GI Admit and med rec completed via admit RN. Pt on tele showing SR 60-70s. vitals stable. Diet changed to clears. Per surgery do not administer golyte prep tonight- prep held. IV Zofran given overnight x1 with good relief- no further c/o nausea or vomiting. PURCHASING AND CLAIMS SUPERVISOR Dilaudid initiated per pt request however no pain medication used. K this am 3.3 after 2 infusions of 40 meq of potassium. additional 40meq ordered IV per mag/ k protocol. Care ongoing.
[2016-12-17] MEDS ORDERED: KCl 40 mEq/500 mL D5W(K 3 - 3.7 & Creat < 2) IV ONE (04:55)
[2016-12-17] MEDS: 0.9% Sodium Chloride 1,000 ML IV SCH ×2 (05:14→16:02)
[2016-12-17] MEDS: Ondansetron 2 mg/mL 2 mL Inj IVPUSH PRN ×3 (05:38→15:59)
[2016-12-17] MEDS ORDERED: Sodium Chloride LOK Flush 10 mL Syringe IVFLUSH PRN (09:00)
[2016-12-17] MEDS ORDERED: TPN Per Pharmacist XX ONE (09:00)
--- NOTE | 2016-12-17 10:43 | NUR ---
NUTRITION ASSESSMENT: ASSESS:66 YO female admitted with sever diverticulitis, status post peridiverticular abscess. She was scheduled for a sigmoid colectomy on January 04 at [facility]. On December 06 she developed shingles and was noted to have hypokalemia. She was started on potassium and acyclovir and continued use of oxycodone. This lead to anorexia, compounded by early satiety with nausea / vomiting for at least a week and a half. She has been sustaining himself on Jell-O on ice chips. She has had increased pain right left lower quadrant and a feeling of pressure. She has had loose bowel movements free of blood or mucus. She has lost 22.88 pounds (10.4 kg) x 1 month = 12.34% = severe malnutrition. PMHx:Abdominal pain, diverticulitis, recent shingles, recent hyperkalemia. DIET:NPO. TPN orders received today. LABS: Reviewed. K+ 3.3, BUN 6, Glu 148, Ca 7.9, Alb 3.3. MEDICATIONS: Reviewed. NUTRITION FOCUSED PHYSICAL ASSESSMENT: GI symptoms / stool: BM x 1 today.Tucker: 19. Skin Integrity: No issues reported. ANTHROPOMETRICS: Current Wt: 73.9 kgBMI: 27.0 kg/m2. IBW: 56.8 kg (130.15 IBW)UBW: 84.3 kg. ESTIMATED NEEDS (IMPENDING COLECTOMY): Calories: 1626 - 2217 kcal (22 - 30 kcal / kg BW) Protein: 89 - 111 g protein (1.2 - 1.5 g / kg BW) Fluid: Approx 2217 mL (30 mL/kg BW) NUTRITION DIAGNOSIS: 1)Inadequate oral intake related to altered GI function, as evidenced by NPO status, requirement for TPN to build reserves for upcoming colectomy. INTERVENTION: 1) The patient is at significant risk for refeeding due to her persistent anorexia. TPN recommendation will meet approx. 25% of her nutrient needs: D 85 g, AA 26 g, lipids 10 g. 2) Once refeeding risk resolved, likely by Tuesday, will advance TPN macronutrients slowly to goal: D 340 g, AA 105 G, lipids 40 g (58% D, 21% AA, 20% lipid), providing 1976 kcal, 105 g protein, meeting approx. 100% nutrient needs for prolonged bowel rest. 3)In the event diet able to be advanced to clear liquids, recommend add Ensure Clear to trays. Once diet advanced to full liquids, recommend add Impact Advanced recovery all trays to build nutrition stores for surgery. MONITOR/EVALUATE: NPO / GI status, TPN tolerance / advance, labs. Follow up per high nutrition risk guidelines.
--- NOTE | 2016-12-17 11:13 | NUR ---
Pain Pt stating 10/10 pain with MASTER BAKER, encouraged pt to push button, pt nauseous. Administered 4 mg Zofran. Administered 0.1 mg bolus of Dilaudid. pt encouraged pt to breathe slow breaths. Administered second bolus 0.1 mg, pt stated she could not talk with MD. MD stepped in room. Care continues.
--- NOTE | 2016-12-17 13:59 | NUR ---
[facility] suite Pt transported to [facility] at approximately 1215 via wheelchair by RUSS. Addendum: 12/17/16 at 1401 by NATALIYA JACKSON RN [id number] transported to [facility] suite
--- NOTE | 2016-12-17 14:00 | NUR ---
Return to [facility] Pt returned to [facility] at approximately 1400.
--- NOTE | 2016-12-17 14:00 | DRSVH ---
PROCEDURE: X-RAY PICC LINE PLACEMENT BY NURSE ([id number]) INDICATIONS: TPN COMPARISON: None. FINDINGS: PICC was placed by the intravenous therapy team from the right side. Fluoroscopic spot fi lm demonstrates tip projected over the cavoatrial junction. IMPRESSION: Tip of PICC projected over the cavoatrial junction. Dictated by: Karl HILLMAN Interpreted: Kellie Clark MD on 12/17/2016 at 13:59 Transcribed by: JULIOCESAR on 12/17/2016 at 14:00 Approved by: Kellie Clark MD, PhD on 12/17/2016 at 15:24
--- NOTE | 2016-12-17 14:36 | NUR ---
Social Work: Initial Assessment Attempt Insurance Sales Representative attempted to complete initial assessment with the patient, but the patient was not in her room at the time. SW attempted to call patient's [employer] [phone], and complete initial assessment, but there was no answer. SW left a message requesting a call back. SW will continue to follow patient and attempt to complete initial assessment. Cookie Fisher, SANTOS, ACM
--- NOTE | 2016-12-17 15:09 | CONS ---
[address] [address] CONSULTATION REPORT PATIENT: YUNIER TRUJILLO : 1950 MR#: [id number] ADMIT: 12/16/2016 JOB ID: [id number] DATE OF SERVICE: 12/17/2016 REASON FOR CONSULTATION: The patient is seen in consultation at the request of Dr. Alistair Parrish regarding further evaluation and management of diverticulitis. HISTORY OF PRESENT ILLNESS: The patient is a 66-year-old woman who was admitted to the hospital yesterday with ongoing diverticulitis. She tells me that she has been struggling with diverticulitis for the past seven years. Since her first episode, she has had four episodes plus this most recent episode. She has had at least two colonoscopies over the past seven years. Most recent one was a couple years ago. She reports that she was found to have no polyps and just diverticular disease. This latest episode of diverticulitis began in mid October, at which time she developed a knife-like pain. This prompted an admission to our hospital, at which time she was on IV antibiotics and eventually discharged on Augmentin. She had a small pericolonic abscess at that time. It sounds like she has just never completely recovered since that episode. She has continued to struggle with pain and recently had difficulty with nausea and vomiting. On December 03, a repeat CT scan was obtained due to increasing pain. This time, the diverticulitis actually looked better with the abscess nearly completely resolved. She at that time added Flagyl to her Augmentin with associated nausea and vomiting. She took that for 10 days and then anticipated that her nausea would go away once stopping it. The nausea did improve somewhat, but she continues to have significant pain. Also in early November, she developed possible shingles for which she was treated with acyclovir for eight days. Yesterday, her pain was just so bad that she decided she has to come to the emergency room. She has seen a surgeon in [place] and has been scheduled for a laparoscopic sigmoid colectomy to be performed in early December. At this point, I just feel that she is no longer able to hold out. She was given IV antibiotics and pain meds upon admission. She tells me this morning she is feeling better. She is having no more nausea. Her pain is improved. PAST MEDICAL HISTORY: Basal cell carcinoma. PAST SURGICAL HISTORY: Laparoscopic cholecystectomy seven years ago. CURRENT MEDICATIONS: Home medications include: 1. Oxycodone. 2. Zofran. 3. Phenergan. 4. Augmentin. ALLERGIES: 1. She has allergies to CIPRO. 2. She also developed significant nausea with FLAGYL. FAMILY HISTORY: Family history is reviewed and unremarkable. She thinks her father may have suffered from diverticulitis. 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 REVIEW OF SYSTEMS: Full review of systems is obtained and as per the HPI. This morning, her pain and nausea are much improved. For the past month, she has been suffering from night sweats. She denies any urinary symptoms. She has been having a bowel movement daily. Initially that was painful but has improved. All other systems reviewed and negative. PHYSICAL EXAMINATION: Vital signs: She has been afebrile since admission and hemodynamically normal. This morning, heart rate is 65. Her blood pressure was 159/84, satting 98% on room air. In general, she appears comfortable in no acute distress. Cardiovascular: She has a regular rate and rhythm with no appreciated murmurs, rubs, gallops. Pulmonary: Lungs clear to auscultation bilaterally. Vascular: She has no carotid bruit. Neck: She has no thyromegaly. Lymph: She has no cervical lymphadenopathy. GI: Her abdomen is soft, nontender, nondistended. Extremities: Warm without significant edema. Skin is warm without rash. Neuro is grossly intact. Psych is pleasant and appropriate. IMAGING: CT scan from her admission in October, as well as from yesterday are both reviewed. Yesterday showed resolution of the pericolonic abscess. She does have some ongoing inflammation in sigmoid colon. LABORATORY STUDIES: White blood cell count yesterday was 10. This morning it is 7.2. Her hematocrit was 41.4. This morning it is 33.1. Platelet count was 320. Today it is 232. Her potassium upon admission yesterday was 2.8. This is now up to 3.3. Creatinine is fine at 0.63. Her albumin this morning is 3.3. ASSESSMENT AND PLAN: This is a 56-year-old female with a history of recurrent diverticulitis, now with over a month of just smoldering diverticulitis. I had a lengthy discussion with the patient regarding surgical management of her disease. I discussed that ultimately she would be in good health and nutrition prior to undertaking a sigmoid colectomy. However, the past month has shown that further delaying her surgery is unlikely to improve her preoperative health and only likely to increase the risk for surgical morbidity. She does not believe she can hold out much longer in terms of having surgery and would like to move forward as soon as possible. To that end, I have planned on doing a laparoscopic sigmoid colectomy on Tuesday. Her biggest risk factor at this point is her malnutrition given her low albumin, and she also endorses a 15 pound weight loss over the past month. I am going to have a PICC line placed and start her on total parenteral nutrition immediately. I will plan on trying for a slow mechanical bowel prep to begin on Tuesday and then also give her oral antibiotics Tuesday night. The technical and convalescent aspects of surgery, as well as potential risks and complications were reviewed. I reviewed in depth the possibility of anastomotic leak. I also reviewed the possibility of a diverting loop ileostomy. She understands and wishes to proceed with this plan. I also, given her otherwise healthy status, feel the hospice team needs to be involved at this point in her care. Therefore, I am happy to assume primary responsibility for this hospitalization.
--- NOTE | 2016-12-17 15:51 | PCM.PHAPRO ---
Progress Nausea, dehydration and hypokalemia. TPN #1 Indication: Diverticulitis, chronic, with significant weight loss Surgery scheduled in near future. At risk for refeeding syndrome Briefly, I. VS currently stable Hypovolemic on admit, repleted with crystalloid. Albumin low and falling. II. Chem Hypokalemia is concerning for refeeding p/ Check phos today III. Glucose Mild fasting hypoglycemia p/ Anticipated further glucose elevation with TPN Add 10 unit to mix and start low-intensity SQ insulin IV. Substrate Risk of refeeding p/ Starting with minimal macro's and advance as tolerated 17-Dec-16 Standard Hang Time: 2100 Substrates Total kcal: 493 AMINO ACIDS 26 g DEXTROSE 85 g Total Volume (mL): 1800 LIPIDS 10 g Sterile Water for Injection QS mL To Infuse Over (hrs): 24 Total Volume 1800 mL At at a rate of (mL/hr): 75 Additives Sodium Chloride 80 mEq "typical" daily requirements Sodium Acetate 40 mEq Sodium 50-120mEq Potassium Chloride 40 mEq Potassium 60-120mEq Potassium Phosphate 30 mEq Phosphate 20-40mEq Calcium Gluconate 12 mEq Magnesium 8-32mEq Magnesium Sulfate 12 mEq Calcium 9-22mEq Acetate* 80-120mEq Chloride* 80-120mEq Regular Insulin 10 units *Depending on acid-base status Famotidine mg Multivitamins 1 std dose Insulin Regimen Trace Elements 1 std dose none Thiamine 100 mg Regular Low Intensity Subcut X Folic Acid 1 mg Regular Medium Intensity Subcut Ascorbic Acid 500 mg Regular High Intensity Subcut Regular Insulin Infusion Other: Special Instructions: To be infused via central line only. For delay or inturruption of TPN contact the pharmacist for alternative replacement solution. Jomar Kwong S Pharm D December 17, 2016 15:51
[2016-12-17] MEDS: LORazepam 0.5 mg Tablet PO PRN (15:59)
--- NOTE | 2016-12-17 16:24 | PCM.PNMED ---
Subjective Date of Service December 17, 2016 Subjective Pt seen and examined at bedside. IN significant abdominal pain still, only partially controlled with current pain medications. Exam Vital Signs Vital Sign - Last Date Time Temp Pulse Resp B/P Pulse Ox O2 Delivery O2 Flow Rate FiO2 12/17/16 15:41 87 18 164/106 92 12/17/16 12:01 36.8 Room Air 12/16/16 15:51 2 Intake and Output 12/16/16 12/16/16 12/17/16 Cumulative From/Thru 15:00 23:00 07:00 12/16/16 13:53 - 12/17/16 06:08 Intake Total 1000 ml 1000 ml 1433 ml 3433 ml Output Total 575 ml 575 ml Balance 1000 ml 1000 ml 858 ml 2858 ml Intake Oral 450 ml 450 ml IV Total 1000 ml 1000 ml 983 ml 2983 ml Output Urine Total 575 ml 575 ml # Bowel Movements 1 1 IVs and Medications Medications Reviewed: Medications were reviewed in detail Lab and Diagnostics Result Diagram: 12/17/16 0239 12/17/16 1128 Assessment & Plan 66 YO F with recurrent sigmoid diverticulitis with planned surgical intervention. Problem list as below, further management as per per surgical service, TPN initiated, pt medically stable but pain management has yet to be achieved. : 1. Sigmoid diverticulitis, POA.: Continue antibiotic therapy, NPO, TPN, expectant surgical intervention is planned. PRN medications for pain includin RIBBER pump 2. Probable ileus by CT scan today, POA. 3. Volume depletion, POA. continue IVFs. 4. Hypokalemia, POA. Replete and continue to monitor On surgical request hospitalist consultation mammography required, we will now be signing off and transferring care to general surgery for continued care leading up to surgery: She is admitted inpatient status with over 2 nights expected. Pain Evaluation: Pain not Controlled Resuscitation Status: CPR: Attempt Resuscitation Time spent 25 minutes Yusuf Ruiz DO December 17, 2016 16:24
--- NOTE | 2016-12-17 16:37 | NUR ---
Blood pressure BP 164/106 HR 78 pt states its from constant pain. Denies SOB, denies chest pain. MD notified. Pt using PASSEMENTERIE WORKER, educated on use, 0.5 mg Ativan administered per MD order. Pt states she is tired. Pt states she needs sleep. Pt on continuous pulse ox SPO2 95% RA. Care continues.
[2016-12-17] MEDS: Dextrose 5% 500 ML IV SCH (17:45)
[2016-12-17] MEDS ORDERED: DEXTROSE 5% IV SCH (18:10)
[2016-12-17] MEDS ORDERED: POTASSIUM PHOS IV SCH (18:10)
--- NOTE | 2016-12-17 18:35 | NUR ---
Blood Pressure/Pain/Urine out BP 130/88 HR 78 RR 16 SPO2 98%, pt states she feels much better after Ativan. VSS. Pt able to converse and socialize. Pt states pain is down to a 3. Urine output 2300, NS 100 mL/hr, pt stated she is up to BSC too often and urinating more than normal. Pt steady on feet to BSC. Care continues. Addendum: 12/17/16 at 1848 by NATALIYA JACKSON RN notified.
[2016-12-17] MEDS: Total Parenteral Nutrition 1 BAG IV SCH (20:44)
[2016-12-17] MEDS ORDERED: POTASSIUM PHOS IV ONE (20:58)
[2016-12-17] MEDS ORDERED: DEXTROSE 5% IV ONE (20:58)
[2016-12-18] VITALS (7 sets, daily range): BP systolic 110–146; BP diastolic 71–78; PULSE 69–87; RESP 16–18; O2SAT 96–97
[2016-12-18] MEDS: Piperacillin-Tazo 3.375 Gm Inj 3.375 GM in Dextrose 5% Minibag Plus 50 ML IV SCH ×3 (01:16→18:01)
[2016-12-18] MEDS: Heparin 5,000 Unit/mL Inj SUBQ SCH ×3 (01:16→18:01)
[2016-12-18 05:49] LABS: Magnesium 1.5 mg/dL (1.6-2.6); Phosphorus 4.6 mg/dL (2.5-4.9)
[2016-12-18] MEDS ORDERED: KCl 40 mEq/500 mL D5W(K 3 - 3.7 & Creat < 2) IV ONE (07:25)
--- NOTE | 2016-12-18 08:16 | NUR ---
Pain Pt states she is doing much better with pain this am. Pain level at zero at this time. Care continues.
--- NOTE | 2016-12-18 09:04 | PCM.PNSURG ---
Subjective Visit Information: Reason for Visit Diverticulitis Surgery/Surgery Date Post-Op Day # Date of Admission: December 16, 2016 at 17:50 Hospital Day # Subjective: feeling better today, had passed loose stool yesterday, got a PiCC line, on TPN , and APPLICATION ARCHITECT MANAGER for pain control Objective Objective awake in bed looks cheery and pleasant abd: soft, no tenderness on palpation LLQ Vital Sign- Last 8 Hours Date Time Temp Pulse Resp B/P Pulse Ox O2 Delivery O2 Flow Rate FiO2 12/18/16 08:00 36.3 69 16 146/77 96 Room Air 12/18/16 06:50 16 96 12/18/16 05:22 78 12/18/16 04:10 36.5 80 16 115/74 96 Room Air Intake and Output- Last 8 Hour 12/18/16 Cumulative From/Thru 07:00 12/16/16 13:53 - 12/18/16 06:47 Intake Total 1505 ml 6486 ml Output Total 600 ml 6175 ml Balance 905 ml 311 ml Intake Oral 200 ml 1450 ml IV Total 624 ml 4355 ml TPN/PPN 681 ml 681 ml Output Urine Total 600 ml 6175 ml # Voids 1 3 # Bowel Movements 1 Result Diagram: 12/17/16 0239 12/18/16 0500 Assessment & Plan Impression Persistent diverticulitis Hypokalemia Problems: Plan Continue clears and IV abx Continue TPN Replace K Will start a bowel prep tomorrow night Hopefully surgery next week VTE Prophylaxis: Sub-Q Heparin (Unfractionated) Resuscitation Status: CPR: Attempt Resuscitation David Parra MD December 18, 2016 09:04
[2016-12-18] MEDS: HYDROmorphone PCA 0.2 mg/mL 30 mL Inj IV PRN (09:38)
[2016-12-18] MEDS ORDERED: Magnesium Sulf 2 Gm/50mL Water 2 GM in IV Premix 1 EACH IV ONE ×2 (09:55→13:00)
--- NOTE | 2016-12-18 10:06 | NUR ---
Social Work: Initial Assessment Data & Assessment: See Initial Assessment. EMR Reviewed. Patient is a 66 y/o female that admitted on 12/16/16 for Diverticulitis per H&P. Hospital Technician met with patient at bedside to complete initial assessment, SW role reviewed, and discharge planning discussed. Patient confirmed that her insurance is [employer]. Patient reports that her PCP is Dr. Kasey Johnson. Patient reports no LTC or VA benefits. Patient re-admit score is 3 high-risk. Patient reports that she does have an Advance Directive/DPOA. SW requested a copy. Patient lives at home with her daughter in a two story home, but everything needed is on the first level. Patient reports that she is independent at base line and has no DME. Patient drives and still works. Patient has no HH or [facility] history. Patient does not have any current discharge needs at this time. SW wrote contact information on patient's white board. SW will continue to follow and assist patient with discharge planning needs. Plan: Patient will likely discharge j[facility]ae no needs, but SW will continue to follow patient incase a need [place]. Nancy Finley LMSW, [facility] Addendum: 12/18/16 at 1018 by NANCY FINLEY Amended: Links added.
--- NOTE | 2016-12-18 10:12 | PCM.PHAPRO ---
Progress Nausea, dehydration and hypokalemia. PARENTERAL NUTRITION ORDERS 2 - Standard Hang Time: 2100 Substrates Total kcal: 493 AMINO ACIDS 26 g DEXTROSE 85 g Total Volume (mL): 1800 LIPIDS 10 g Sterile Water for Injection QS mL To Infuse Over (hrs): 24 Total Volume 1800 mL At at a rate of (mL/hr): 75 Additives Sodium Chloride 80 mEq "typical" daily requirements Sodium Acetate 40 mEq Sodium 50-120mEq Potassium Chloride 50 mEq Potassium 60-120mEq Potassium Phosphate 30 mEq Phosphate 20-40mEq Calcium Gluconate 12 mEq Magnesium 8-32mEq Magnesium Sulfate 16 mEq Calcium 9-22mEq Acetate* 80-120mEq Chloride* 80-120mEq Regular Insulin 0 units *Depending on acid-base status Famotidine 40 mg Multivitamins 1 std dose Insulin Regimen Trace Elements 1 std dose none Thiamine 100 mg Regular Low Intensity Subcut X Folic Acid 1 mg Regular Medium Intensity Subcut Ascorbic Acid 500 mg Regular High Intensity Subcut Regular Insulin Infusion Other: Special Instructions: To be infused via central line only. For delay or inturruption of TPN contact the pharmacist for alternative replacement solution. Signature Date: YUNIER TRUJILLO 2006 [facility] Ordered Mg 2 gm supplement. KCL 40 meq supplement ordered by provider. Removed insulin. Pepcid added to TPN -Salomón Correa, PharmD Salomón Correa December 18, 2016 10:12
--- NOTE | 2016-12-18 11:03 | NUR ---
NUTRITION FOLLOW-UP: ASSESS:66 YO female admitted with sever diverticulitis, status post peridiverticular abscess. She was scheduled for a sigmoid colectomy on January 04 at [facility]. On December 06 she developed shingles and was noted to have hypokalemia. She was started on potassium and acyclovir and continued use of oxycodone. This lead to anorexia, compounded by early satiety with nausea / vomiting for at least a week and a half. She has been sustaining himself on Jell-O on ice chips. She has had increased pain right left lower quadrant and a feeling of pressure. She has had loose bowel movements free of blood or mucus. She has lost 22.88 pounds (10.4 kg) x 1 month = 12.34% = severe malnutrition. PMHx:Abdominal pain, diverticulitis, recent shingles, recent hyperkalemia. DIET:NPO. TPN: D 85 g, AA 26 g, lipids 10 g, currently meeting 25% nutrient needs due to significant refeeding issues. LABS: Reviewed. K+ 3.0, BUN 5, glu 127, Ca 8.3, Mg 1.5. MEDICATIONS: Reviewed. Ativan. NUTRITION FOCUSED PHYSICAL ASSESSMENT: GI symptoms / stool: Loose BM x 1 yesterday.Tucker: 19. Skin Integrity: No issues reported. ANTHROPOMETRICS: Current Wt: 74.9 kg, BMI 27.0 kg/m2. Admit weight: 73.9 kgBMI: 27.0 kg/m2. IBW: 56.8 kg (130.15 IBW)UBW: 84.3 kg. ESTIMATED NEEDS (IMPENDING COLECTOMY): Calories: 1626 - 2217 kcal (22 - 30 kcal / kg BW) Protein: 89 - 111 g protein (1.2 - 1.5 g / kg BW) Fluid: Approx 2217 mL (30 mL/kg BW) NUTRITION DIAGNOSIS: 1)Inadequate oral intake related to altered GI function, as evidenced by NPO status, requirement for TPN to build reserves for upcoming colectomy - PERSISTS. INTERVENTION: 1) The patient continues at significant risk for refeeding due to her persistent anorexia. Current TPN recommendation is to maintain macronutrient provision at 25% nutrient needs over the weekend, until refeeding risk resolved. 2) Once refeeding risk resolved, will advance TPN macronutrients slowly to goal: D 340 g, AA 105 G, lipids 40 g (58% D, 21% AA, 20% lipid), providing 1976 kcal, 105 g protein, meeting approx. 100% nutrient needs for prolonged bowel rest. 3)Now that diet has been advanced to clear liquids, will add Ensure Clear to trays. Once diet advanced to full liquids, will add Impact Advanced recovery all trays to build nutrition stores for surgery. MONITOR/EVALUATE: Clear liquid / GI status, TPN tolerance / advance, labs. Follow up per high nutrition risk guidelines.
--- NOTE | 2016-12-18 13:28 | NUR ---
Magnesium Pt refusing Mg at this time, pt aware Mg level of 1.5. Pt aware normal lab values of 1.6-2.6. Pt states she doesn't do well with Mg IV, prefers to wait until next lab draw to see results. Pt aware Mg is in TPN. MD notified. Care continues.
[2016-12-18] MEDS: Dextrose 5% 500 ML IV SCH (17:45)
[2016-12-18] MEDS: LORazepam 0.5 mg Tablet PO PRN (20:53)
[2016-12-18] MEDS: Sodium Chloride LOK Flush 10 mL Syringe IVFLUSH PRN (20:54)
[2016-12-18] MEDS: Total Parenteral Nutrition 1 BAG IV SCH (21:09)
[2016-12-19] VITALS (10 sets, daily range): BP systolic 109–147; BP diastolic 70–87; PULSE 59–88; RESP 16–20; O2SAT 96–100
[2016-12-19] MEDS: Piperacillin-Tazo 3.375 Gm Inj 3.375 GM in Dextrose 5% Minibag Plus 50 ML IV SCH ×3 (01:22→16:31)
[2016-12-19] MEDS: Heparin 5,000 Unit/mL Inj SUBQ SCH ×3 (01:22→15:49)
--- NOTE | 2016-12-19 05:23 | NUR ---
Pain control Pt has reported a low/tolerable pain level throughout night, scoring 0-2/10. Using [employer]CHNICIAN per protocol and getting to [facility] independently without difficulty.
[2016-12-19 05:34] LABS: Magnesium 1.7 mg/dL (1.6-2.6); Phosphorus 4.6 mg/dL (2.5-4.9)
[2016-12-19] MEDS: Ondansetron 2 mg/mL 2 mL Inj IVPUSH PRN ×2 (07:58→21:05)
[2016-12-19] MEDS ORDERED: PEG/Electrolytes 4,000 mL Solution PO ONE ×2 (09:10→20:45)
--- NOTE | 2016-12-19 09:10 | PCM.PNSURG ---
Subjective Visit Information: Reason for Visit Diverticulitis Surgery/Surgery Date Post-Op Day # Date of Admission: December 16, 2016 at 17:50 Hospital Day # Subjective: feeling good, no significant abd pain yesterday, had a BM, tolerating clears, on [employer] OFFICER and TPN Objective Objective Looking well, sitting up in chair Abd: soft, no tenderness on palpation in lower quadrants Vital Sign- Last 8 Hours Date Time Temp Pulse Resp B/P Pulse Ox O2 Delivery O2 Flow Rate FiO2 12/19/16 07:52 36.5 73 20 147/87 96 Room Air 12/19/16 07:01 66 12/19/16 04:52 16 12/19/16 03:19 36.7 59 16 128/70 97 Room Air Intake and Output- Last 8 Hour 12/19/16 Cumulative From/Thru 07:00 12/16/16 13:53 - 12/19/16 05:40 Intake Total 959 ml 9657 ml Output Total 1200 ml 7775 ml Balance -241 ml 1882 ml Intake Oral 100 ml 2140 ml IV Total 145 ml 6122 ml TPN/PPN 714 ml 1395 ml Output Urine Total 1200 ml 7775 ml # Voids 3 # Bowel Movements 1 2 Result Diagram: 12/17/16 0239 12/19/16 0445 Assessment & Plan Impression Persistent diverticulitis since mid-October Clinically improving on IV abx Problems: Plan Start bowel prep tonight Continue TPN and clear liquids and Ensure Continue IV abx (zosyn) Possible surgery on Check labs tomorrow AM VTE Prophylaxis: Sub-Q Heparin (Unfractionated) Resuscitation Status: CPR: Attempt Resuscitation David Parra MD December 19, 2016 09:10
--- NOTE | 2016-12-19 09:15 | NUR ---
[facility] Signed
--- NOTE | 2016-12-19 11:26 | PCM.PHAPRO ---
Progress Nausea, dehydration and hypokalemia. PARENTERAL NUTRITION ORDERS 3 - Standard Hang Time: 2100 Substrates Total kcal: 493 AMINO ACIDS 26 g DEXTROSE 85 g Total Volume (mL): 1800 LIPIDS 10 g Sterile Water for Injection QS mL To Infuse Over (hrs): 24 Total Volume 1800 mL At at a rate of (mL/hr): 75 Additives Sodium Chloride 80 mEq "typical" daily requirements Sodium Acetate 40 mEq Sodium 50-120mEq Potassium Chloride 60 mEq Potassium 60-120mEq Potassium Phosphate 30 mEq Phosphate 20-40mEq Calcium Gluconate 12 mEq Magnesium 8-32mEq Magnesium Sulfate 16 mEq Calcium 9-22mEq Acetate* 80-120mEq Chloride* 80-120mEq Regular Insulin 0 units *Depending on acid-base status Famotidine 40 mg Multivitamins 1 std dose Insulin Regimen Trace Elements 1 std dose none Thiamine 100 mg Regular Low Intensity Subcut X Folic Acid 1 mg Regular Medium Intensity Subcut Ascorbic Acid 500 mg Regular High Intensity Subcut Regular Insulin Infusion Other: Special Instructions: To be infused via central line only. For delay or inturruption of TPN contact the pharmacist for alternative replacement solution. Signature Date: YUNIER TRUJILLO [address] [facility] Pt refused Mg supplementation yesterday and requested supplementation through TPN only. Salomón Correa, PharmD Salomón Correa December 19, 2016 11:26
[2016-12-19] MEDS: Dextrose 5% 500 ML IV SCH (15:49)
[2016-12-19] MEDS: HYDROmorphone PCA 0.2 mg/mL 30 mL Inj IV PRN (16:45)
[2016-12-19] MEDS: LORazepam 0.5 mg Tablet PO PRN (19:52)
[2016-12-19] MEDS ORDERED: TPN Per Pharmacist XX SCH (21:00)
[2016-12-19] MEDS: Total Parenteral Nutrition 1 BAG IV SCH (21:11)
[2016-12-20] VITALS (12 sets, daily range): BP systolic 129–145; BP diastolic 71–86; PULSE 66–79; RESP 16–20; O2SAT 96–99
[2016-12-20] MEDS: Piperacillin-Tazo 3.375 Gm Inj 3.375 GM in Dextrose 5% Minibag Plus 50 ML IV SCH ×2 (00:55→08:35)
[2016-12-20] MEDS: Heparin 5,000 Unit/mL Inj SUBQ SCH ×4 (00:57→23:08)
[2016-12-20] MEDS: Dextrose 5% 500 ML IV SCH (05:41)
[2016-12-20] MEDS: Sodium Chloride LOK Flush 10 mL Syringe IVFLUSH PRN (05:42)
[2016-12-20 06:25] LABS: BASOPHILS % (AUTO) 0.2 % (0-3); EOSINOPHILS % (AUTO) 4.4 % (0-5); MONOCYTES % (AUTO) 12.2 % (4-12); Mean Corpuscular Hemoglobin 29.1 pg (27.0-35.0); Mean Corpuscular Volume 87.9 fL (81-100); NEUTROPHILS % (AUTO) 40.4 % (40-74); Platelet Count 186 bil/L (150-400)
[2016-12-20 06:28] LABS: Magnesium 1.8 mg/dL (1.6-2.6)
[2016-12-20 06:36] LABS: INR 0.96 ratio
[2016-12-20] MEDS: Ondansetron 2 mg/mL 2 mL Inj IVPUSH PRN ×3 (08:34→22:29)
--- NOTE | 2016-12-20 10:04 | NUR ---
NUTRITION FOLLOW-UP: ASSESS: 66 YO F admitted with severe diverticulitis, status post peridiverticular abscess. Pt with poor PO intake for at least a week and a half prior to admit. She has been sustaining himself on Jell-O on ice chips. She has lost 22.88 pounds (10.4 kg) x 1 month = 12.34% = significant weight loss. TPN continues, advancing today. PMHx: Abdominal pain, diverticulitis, recent shingles, recent hyperkalemia. DIET: NPO. TPN: D 85 g, AA 26 g, lipids 10 g, currently meeting 25% nutrient needs due to significant refeeding issues. LABS: Reviewed. Cr 5, Glu 120 MEDICATIONS: Reviewed. GI: 2 BM 12/19. SKIN: No issues reported. ANTHROPOMETRICS: Current Wt: 77.8 kg, BMI 28.5 kg/m2. Admit weight: 73.9 kg, BMI: 27.0 kg/m2, IBW: 56.8 kg (130.15 IBW), UBW: 84.3 kg. ESTIMATED NEEDS (IMPENDING COLECTOMY): Calories: 7477-4839 kcal/day (22-30 kcal/kg BW) Protein: 89-111 g/day (1.2-1.5 g/kg BW) Fluid: Approx 2217 mL (30 mL/kg BW) NUTRITION DIAGNOSIS: 1) Inadequate oral intake related to altered GI function, as evidenced by NPO status, requirement for TPN to build reserves for upcoming colectomy - PERSISTS. INTERVENTION: 1) Advance TPN to 50 g AA, 175 g Dex, 30 g lipids to provide 1095 kcal, 50 g protein; meeting 67% calorie, 56% protein needs. 2) Continue to advance TPN macronutrients slowly to goal: D 340 g, AA 105 G, lipids 40 g (58% D, 21% AA, 20% lipid), providing 1976 kcal, 105 g protein, meeting approx. 100% nutrient needs for prolonged bowel rest. 3) Continue Ensure Clear while on clear liquid diet. Once diet advanced to full liquids, will add Impact Advanced recovery all trays to build nutrition stores for surgery. MONITOR/EVALUATE: PO intake, diet advance/tolerance, TPN tolerance/advance, labs, GI/nutrition status. Follow per high nutrition risk guidelines. Addendum: 12/20/16 at [address] DIET: Clear liquids, PO 75%. Addendum: 12/21/16 at [address] Will continue current macronutrients today of 175g Dex, 50g AA and 30g lipids. Pharmacist is aware. Pt is to have lap colectomy today. If pt continue to tolerate TPN, recommend advance tomorrow to 250g Dex, 75g AA and 40g lipids (1550kcal and 75g pro). Recommend goal TPN of 325g Dex, 105g AA and 55g lipids (2075kcal and 105g pro)
[2016-12-20] MEDS ORDERED: ERYTHROMYCIN BASE 250 MG PO ONE ×6 (10:15→23:00)
[2016-12-20] MEDS ORDERED: ERYTHROMYCIN BASE 500 MG PO ONE ×3 (13:00→23:00)
--- NOTE | 2016-12-20 15:36 | PROG NOTE ---
[address] [address] PROGRESS NOTE PATIENT: YUNIER TRUJILLO : 1950 MR#: [id number] ADMIT: 12/16/2016 JOB ID: [id number] DATE: 12/20/2016 The patient is seen in followup for her recent admission for diverticulitis with ongoing pain. Over the weekend, she has been doing better with decreasing abdominal pain. She has been able to tolerate some liquid oral intake. She has been on TPN. A slow bowel prep was started last night which she has been tolerating. OBJECTIVE: She has remained afebrile and hemodynamically normal over the last 24 hours. This morning she is up in a chair. Alert, oriented, and appears comfortable. Her abdomen is soft, nontender, nondistended. Her white blood cell count remains normal at 5.5, hematocrit is 30.5. Her creatinine is 0.66. ASSESSMENT AND PLAN: This is a 66-year-old female with recurrent sigmoid diverticulitis admitted for ongoing pain and nausea, who is scheduled to undergo a laparoscopic sigmoid colectomy tomorrow. Consent was obtained. She has started mechanical bowel prep yesterday evening and will continue that throughout the day. I have written for oral antibiotics to begin tonight.
[2016-12-20] MEDS: Total Parenteral Nutrition 1 BAG IV SCH (21:13)
[2016-12-20] MEDS: LORazepam 0.5 mg Tablet PO PRN (21:21)
[2016-12-21] VITALS (37 sets, daily range): BP systolic 135–200; BP diastolic 70–103; PULSE 68–105; RESP 14–23; O2SAT 92–100
[2016-12-21] MEDS: HYDROmorphone PCA 0.2 mg/mL 30 mL Inj IV PRN (02:08)
[2016-12-21 04:07] LABS: Phosphorus 4.3 mg/dL (2.5-4.9)
[2016-12-21] MEDS ORDERED: Lactated Ringer's 1,000 ML IV SCH ×3 (05:00→14:54)
--- NOTE | 2016-12-21 05:54 | NUR ---
GI: Golyte prep tolerated well by pt. Pt finished about half the prep until her stool was clear. TPN continues overnight. pain controlled with [employer] REPAIRER Dilaudid. Care ongoing.
[2016-12-21] MEDS: Heparin 5,000 Unit/mL Inj SUBQ SCH ×2 (08:30→16:30)
--- NOTE | 2016-12-21 09:38 | PROG NOTE ---
[address] [address] PROGRESS NOTE PATIENT: YUNIER TRUJILLO : 1950 MR#: [id number] ADMIT: 12/16/2016 JOB ID: [id number] DATE: 12/21/2016. SUBJECTIVE: The patient is seen in followup for diverticulitis. She tolerated the bowel prep fine. She also had oral antibiotics. She is eager to proceed with surgery. OBJECTIVE: She has remained afebrile and hemodynamically normal. She is alert, oriented and comfortable. ASSESSMENT AND PLAN: This is a 66-year-old female with recurrent diverticulitis who has been struggling for the past month with significant pain, scheduled to undergo a laparoscopic sigmoid colectomy today. I obtained consent yesterday with the plan to proceed to surgery today.
[2016-12-21] MEDS ORDERED: MetoCLOpramide 5 mg/mL 2 mL Inj ONE (10:55)
[2016-12-21] MEDS ORDERED: fentaNYL-PF 50 mCg/mL 2 mL Inj ONE (10:55)
[2016-12-21] MEDS ORDERED: Neostigmine 1 mg/mL 10 mL Inj ONE (10:55)
[2016-12-21] MEDS ORDERED: Ketamine 10 mg/mL 20 mL Inj ONE (10:55)
[2016-12-21] MEDS ORDERED: Propofol 10,000 mCg/mL 20 mL Inj ONE (10:55)
[2016-12-21] MEDS ORDERED: Ondansetron 2 mg/mL 2 mL Inj ONE (10:55)
[2016-12-21] MEDS ORDERED: Rocuronium 10 mg/mL 5 mL Inj ONE (10:55)
[2016-12-21] MEDS ORDERED: Glycopyrrolate 0.2 MG/ML 1mL Inj ONE (10:55)
--- NOTE | 2016-12-21 10:59 | PCM.PHAPRO ---
Progress Date of Service: December 21, 2016 Nausea, dehydration and hypokalemia. TPN management per pharmacy Indication: diverticulitis Pertinent info: - TPN was advanced per dietitian recommendations yesterday. No Rx note but please note that the TPN is the same as today's. - Pt scheduled for OR today. - Electrolytes stable. TPN was ordered as follows (no change from 12/20/16): PARENTERAL NUTRITION ORDERS 21-Dec-16 Standard Hang Time: 2100 Substrates Total kcal: 1095 AMINO ACIDS 50 g DEXTROSE 175 g Total Volume (mL): 1800 LIPIDS 30 g Sterile Water for Injection QS mL To Infuse Over (hrs): 24 Total Volume 1800 mL At at a rate of (mL/hr): 75 Additives Sodium Chloride 80 mEq "typical" daily requirements Sodium Acetate 40 mEq Sodium 50-120mEq Potassium Chloride 50 mEq Potassium 60-120mEq Potassium Phosphate 30 mEq Phosphate 20-40mEq Calcium Gluconate 12 mEq Magnesium 8-32mEq Magnesium Sulfate 16 mEq Calcium 9-22mEq Acetate* 80-120mEq Chloride* 80-120mEq Regular Insulin 0 units *Depending on acid-base status Famotidine 40 mg Multivitamins 1 std dose Insulin Regimen Trace Elements 1 std dose none Thiamine mg Regular Low Intensity Subcut X Folic Acid mg Regular Medium Intensity Subcut Ascorbic Acid mg Regular High Intensity Subcut Regular Insulin Infusion Other: Pharmacy to continue to monitor and order TPN daily. Thank you, Barbara Butler Pharmacist Barbara Butler December 21, 2016 10:59
[2016-12-21] MEDS ORDERED: Cefotetan Inj 2,000 MG in IV Premix 1 EACH IV ONE (12:35)
--- NOTE | 2016-12-21 13:37 | NUR ---
Surgery The pt left the unit for surgery at 1345. The pt left A&O x3 with vitals WNL.
--- NOTE | 2016-12-21 14:09 | PCM.HPANE ---
Patient Data Surgeon Admitting Provider:Alistair Parrish MD Attending Provider:Alistair Parrish MD Primary Care Physician:Other,Physician Other Provider:Julia Johnson Reason for Visit Diverticulitis Ht/WT & BMI Height (Feet): 5 Height (Inches): 5.00 Weight (Kilograms): 77.900 Body Mass Index 27.14 Allergies Coded Allergies: ciprofloxacin (Verified Allergy, Unknown, Rash, 11/14/16) metronidazole (Verified Allergy, Unknown, 12/03/16) Past Anesthesia History Anesthesia History: Denies:: Anesthesia Reactions Diabetes History Hx Diabetes?: No Current Bedside Blood Glucose: 106 MRSA MRSA: No Medications Hypertension Medication: No Home Meds Incl Beta Gianna: No Active Scripts Ondansetron ODT 4 Mg Tab.rapdis4 Mg PO TID #30 TABLET Prov:Mendy Germain MD 12/03/16 Potassium Chloride 10 Meq Capsule.er10 Meq PO DAILY #20 CAPSULE Ref 0 TAKE WITH FOOD Prov:Mendy Germain MD 12/03/16 oxyCODONE 5 Mg Tablet5-10 Mg PO Q4H PRN For Moderate Pain #20 TABLET Prov:Yusuf Ruiz DO 11/16/16 Amoxicillin/Clav K 875-125 mg (Augmentin 875-125 mg)1 Each Tablet1 Tablet PO BID #15 TABLET Ref 0 Prov:Yusuf Ruiz DO 11/16/16 Reported Medications Cholestyramine (Cholestyramine Packet)4 Gm Packet4 Gm PO DAILY Ref 0 11/14/16 [place]-3/Dha/Epa/Fish Oil (Fish Oil 1,600 mg/5 ml Liquid)1,600 Mg-500 Mg-800 Mg/ 5 Ml Liquid1,600 Mg PO DAILY 11/14/16 Cholecalciferol (Vitamin D3) (Vitamin D3)5,000 Unit Capsule5,000 Unit PO DAILY 11/14/16 Lactobacillus Combo No.11 (Probiotic)1 Each Cap.sprink1 Each PO BID 11/14/16 Discontinued Reported Medications Hydrocodone-Acetaminophen 5-325 mg 1 Each Tablet1 Tablet PO TID PRN For Pain Ref 0 11/14/16 Discontinued Scripts Oxycodone (Roxicodone)5 Mg Tablet5-15 Mg PO Q4H PRN For Pain #40 TABLET Ref 0 Prov:Mendy Germain MD 12/03/16 Metronidazole (Flagyl)500 Mg [id number] Mg PO Q8H #30 TABLET Prov:Mendy Germain MD 12/03/16 Amoxicillin 500 Mg Capsule1,000 Mg PO BID #30 CAPSULE Ref 0 Prov:Yusuf Ruiz DO 11/16/16 History History of ENT Problems?: No HEENT History: Denies:: Abnormal Airway Cataracts Difficult Intubation Dysphagia Glaucoma Hearing Problem Sinus Problem TMJ Denture Type: None Teeth Condition: Within Normal Limits Hx of Heart Problems?: No Cardiovascular History: Denies:: Congestive Heart Failure Hypertension Hx of Respiratory Problem?: No Respiratory History: Denies:: Tuberculosis Hx Neurologic Problems?: No Hx of GI Problems?: Yes Hx of Problems?: Yes Genitourinary History: Positive for:: Urinary Tract Infection Denies:: HX of Hemodialysis Kidney Stones HX of Peritoneal Dialysis: No Female Hx: Denies:: Currently Endometriosis Pelvic Inflammatory Problems with Breasts? Hx Musculoskeletal Problems?: Yes Musculoskeletal History: Positive for:: Musculoskeletal Trauma (cortisone shot bilat knees) Denies:: Back Injury Joint Replacement Hx of Psycho/Social Problems?: No Hx Surgeries?: Yes (galbladder) Hx Any Other Health Problems?: Yes Other History: Positive for:: Cancer (skin cancer on face, removed ) Hospitalization (diverticulitis) Denies:: Thyroid Disease History Blood Transfusions: Positive for:: Accept Blood Products? Denies:: Blood Transfusions Hx Diabetes: NoBedside Blood Glucose: 106 Occupation: she works as an ICU nurse in [employer] Hx Alcohol Use: YesAlcoholic Drinks Per Day: 2 glasses wineHx Substance Use: No Smoking Status: Unknown if Ever Smoker Stop/Bang Treated for Sleep Apnea?: No Do You Have a CPAP Machine?: No S-Snoring: Do You Snore Loudly: No T-Tired: feel tired, fatigued: No O-Obsered: Observed not breath: No P-Blood Pressure: treated: No B- Body Mass Index > 35 kg/m2: No A- Age over 50: Yes N- Neck Large Circumference: No G- Gender Male: No JEAN PAUL Total Score: 0 JEAN PAUL Risk Assessment: Low Risk, <3 Yes Risk Assessment Category Category 1A: Patient has history of documented sleep apnea, and HAS NOT received any narcotic, sedative or anesthesia administration during this stay. Category 1B: Patient has history of documented sleep apnea, and HAS received any narcotic , sedative or anesthesia administration during this stay Category 2: Patient has SUSPECTED Obstructive Sleep Apnea, and HAS received any narcotic , sedative or anesthesia administration during this stay. Category 3: Patient has SUSPECTED Obstructive Sleep Apnea and HAS NOT received narcotic, sedative or anesthesia administration during this stay. Category 4: Outpatient in Procedural Areas with known sleep apnea or who screen positive for High Risk via the STOP/BANG questionnaire. Exam Exam Vital Signs Vital Signs Date Time Temp Pulse Resp B/P Pulse Ox O2 Delivery O2 Flow Rate FiO2 12/21/16 10:58 72 12/21/16 09:10 36.9 78 18 143/80 92 Room Air General Appearance: Alert, Oriented X3 HEENT/AIRWAY: MP 2 Lungs: Normal Air Movement Heart: Regular Rate/Rhythm Meds/Labs/Diagnostics Admission Meds Current Medications Neomycin Sulfate (Neomycin Sulfate) 1,000 mg ONCE ONCE PO Last administered on 12/20/16 23:08; Start 12/20/16 at 23:00; Stop 12/20/16 at 23:01; Status DC Erythromycin 1000 mg 1,000 mg ONCE ONCE PO Last administered on 12/20/16 23: 08; Start 12/20/16 at 23:00; Stop 12/20/16 at 23:01; Status DC Lactated Ringer's (Lr) 1,000 ml @ 120 mls/hr Q8H20M IV Last administered on 05:41; Start 12/21/16 at 05:00; Stop 12/21/16 at 13:19; Status DC Bedside Blood Glucose: 106 Labs Test 12/16/16 14:28 12/16/16 16:22 12/17/16 02:39 12/20/16 05:59 Lactic Acid Level 2.8mmol/L (0.4-2.0) Lipase 16U/L (13-60) Urine Color Yellow (YELLOW) Urine Appearance Clear (CLEAR,HAZY) Urine pH 5.5 (5.0-8.0) Urine Specific Wilmot 1.005 (1.003-1.035) Urine Protein Negativemg/dL (NEG,TRACE) Urine Glucose (UA) Negativemg/dL (NEGATIVE) Urine Ketones 15mg/dL (NEGATIVE) Urine Occult Blood Negative (NEGATIVE) Urine Nitrite Negative (NEGATIVE) Urine Bilirubin Negative (NEGATIVE) Urine Urobilinogen Normalmg/dL (NORMAL) Urine Leukocyte Esterase Small (NEGATIVE) Urine RBC 0-2/hpf (0-2) Urine WBC 0-5/hpf (0-5) Urine Epithelial Cells Few/hpf (NONE-MOD) Urine Crystals None seen (NONE SEEN) Urine Bacteria Few/hpf (NONE-FEW) Urine Hyaline Casts None/lpf (NONE) Urine Granular Casts None seen (NONE SEEN) Urine Waxy Casts None seen (NONE SEEN) Urine Red Blood Cell Casts None seen (NONE SEEN) Urine White Blood Cell Casts None seen (NONE SEEN) Urine Mucus None seen (None Seen) Urine Trichomonas None seen (NONE SEEN) Urine Yeast None (NONE SEEN) Urinalysis Comment None Urine Culture Reflexed Indicated Total Bilirubin 0.4mg/dL (0.0-1.2) Aspartate Amino Transf (AST/SGOT) 20U/L (0-50) Alanine Aminotransferase (ALT/SGPT) 13U/L (0-32) Alkaline Phosphatase 65U/L (25-165) Total Protein 5.5g/dL (6.4-8.4) Albumin 3.3g/dL (3.4-5.0) White Blood Count 5.5th/mm3 (3.8-10.1) Red Blood Count 3.47mil/mm3 (3.90-5.20) Hemoglobin 10.1g/dL (12.0-15.6) Hematocrit 30.5% (35.0-46.0) Mean Corpuscular Volume 87.9fL (81-100) Mean Corpuscular Hemoglobin 29.1pg (27.0-35.0) Mean Corpuscular Hemoglobin Concent 33.1% (32.0-37.0) Red Cell Distribution Width 14.6% (12.3-15.4) Platelet Count 186bil/L (150-400) Neutrophils (%) (Auto) 40.4% (40-74) Lymphocytes (%) (Auto) 42.6% (14-46) Monocytes (%) (Auto) 12.2% (4-12) Eosinophils (%) (Auto) 4.4% (0-5) Basophils (%) (Auto) 0.2% (0-3) Prothrombin Time 10.3sec (8.1-12.5) Prothromb Time International Ratio 0.96ratio Magnesium Level 1.8mg/dL (1.6-2.6) Test 12/21/16 03:40 Sodium Level 141mEq/L (134-144) Potassium Level 4.6mEq/L (3.5-5.2) Chloride Level 105mEq/L (97-108) Carbon Dioxide Level 26mmol/L (18-29) Blood Urea Nitrogen 6mg/dL (8-27) Creatinine 0.78mg/dL (0.57-1.00) Estimat Glomerular Filtration Rate 106mL/min (>59) Glucose Level 141mg/dL (60-99) Calcium Level 9.3mg/dL (8.5-10.1) Phosphorus Level 4.3mg/dL (2.5-4.9) Plan Impression Patient chart reviewed, patient interviewed and anesthestic plan with risks, benefits, and alternatives discussed, and informed consent obtained. ASA Physical Status: ASA2 Mod Systemic Disease Anesthetic Plan: GA Bene/Risks/Altern/Consents: Yes HP Complete Prior to Induction: Yes Byron Rosa MD December 21, 2016 14:09
[2016-12-21] MEDS ORDERED: Bupivacaine-MPF 0.25%/EPI 30 mL Inj INFILTRATE ONE (14:45)
[2016-12-21] MEDS ORDERED: Lactated Ringer's 500 ML IV PRN (14:54)
[2016-12-21] MEDS ORDERED: Ondansetron 2 mg/mL 2 mL Inj IVPUSH PRN (14:55)
[2016-12-21] MEDS ORDERED: Phenylephrine 10,000 mCg/mL Inj IVPUSH PRN (14:55)
[2016-12-21] MEDS ORDERED: HYDROmorphone 1 mg/mL Inj IVPUSH PRN (14:55)
[2016-12-21] MEDS ORDERED: fentaNYL-PF 50 mCg/mL 2 mL Inj IVPUSH PRN (14:55)
[2016-12-21] MEDS ORDERED: Dexamethasone 4 mg/mL Inj IVPUSH PRN (14:55)
[2016-12-21] MEDS ORDERED: EPHEDrine Sulfate 50 mg/mL Inj IVPUSH PRN (14:55)
[2016-12-21] MEDS ORDERED: MetoCLOpramide 5 mg/mL 2 mL Inj IVPUSH PRN (14:55)
[2016-12-21] MEDS ORDERED: Lactated Ringer's 1,000 ML IV ONE (18:38)
[2016-12-21] MEDS ORDERED: Acetaminophen IV 1,000 MG in IV Premix 1 EACH IV SCH (19:00)
--- NOTE | 2016-12-21 19:12 | PCM.ANEP1 ---
Post Anesthesia PACU Phase 1 Assessment Anesthetic Administered: GA Level of Alertness: Awake, talking Pain: No Pain Scale Score: 8 Nausea or Vomiting: No CV Function & Hydration Stable: Yes Airway Device: Lungs: Normal Air Movement PACU Phase 2 Assessment Patient Instructions Provided: N/A Byron Rosa MD December 21, 2016 19:12
[2016-12-21] MEDS ORDERED: Labetalol 5 mg/mL 4 mL Inj IV PRN (19:30)
[2016-12-21] MEDS: Labetalol 5 mg/mL 20 mL Inj IV PRN ×2 (19:49→22:20)
[2016-12-21] MEDS ORDERED: hydrALAZINE 20 mg/mL Inj ONE (20:04)
[2016-12-21] MEDS ORDERED: MeTOProlol 1 mg/mL 5 mL Inj ONE (20:13)
--- NOTE | 2016-12-21 20:42 | OP ---
[address] [address] OPERATIVE REPORT PATIENT: YUNIER TRUJILLO : 1950 MR#: [id number] ADMIT: 12/16/2016 JOB ID: [id number] DATE OF SURGERY: 12/20/2016 ANESTHESIA: General. PREOPERATIVE DIAGNOSIS(ES): Sigmoid colon diverticulitis. POSTOPERATIVE DIAGNOSIS(ES): Sigmoid colon diverticulitis. OPERATIVE PROCEDURE: 1. Laparoscopic sigmoid colectomy. 2. Laparoscopic mobilization of the splenic flexure SURGEON: Dr. Sachin Marcus. WOUND CARE RN: Salvador Vasquez MD (transition assistant was required for the same and timely completion of this case) and Burton Rg PA-C. COMPLICATIONS: None. ESTIMATED BLOOD LOSS: Less than 30 mL. CONDITION: Satisfactory. SPECIMEN: Sigmoid colon. DRAINS: None. FINDINGS: There was an obvious area of inflammation where the sigmoid colon was adhered to the left fallopian tube. The left fallopian tube was very enlarged suggesting possible tubo-ovarian abscess. However, I aspirated this and there was no purulent material. A stapled coloprocto-anastomosis was formed using the EEA 29. INDICATIONS/HISTORY: The patient is a 66-year-old woman whose had a number of episodes of diverticulitis over the past 7 years resulting in four previous hospitalizations. Her most recent episode began in mid October, and she has had unremitting pain and worsened nausea and vomiting since that time. She was admitted initially in mid October and then discharged. She is scheduled for an elective sigmoid colectomy at another facility, but that cannot be done until December. She is recently readmitted with worsening nausea, vomiting and lower abdominal pain, prompting a semiurgent operation. She did undergo both mechanical and antibiotic bowel prep prior to surgery. She has been on TPN for malnutrition over the last few days. OPERATIVE TECHNIQUE: The patient was taken to the operating room and placed in supine position. General anesthesia was administered. Hooker catheter was placed and preoperative antibiotics were given. She was placed in low lithotomy. The abdomen was prepped and draped in a standard surgical fashion and a procedural pause performed. Entry was gained in the abdomen through a small supraumbilical incision using a 5 mm Optiview trocar. Pneumoperitoneum was achieved without complication. Local anesthetic was injected, followed by insertion of 5 mm ports in the right mid abdomen and left mid abdomen and left lower quadrant. A 12 mm port was placed in the right lower quadrant. I began by inspecting the abdomen. There was obvious inflammation of the sigmoid colon where it was adhered to the left fallopian tube. I then began by incising the peritoneum up by the ligament of Treitz and taking the inferior mesenteric vein using LigaSure device. I then did some medial to lateral dissection in that area. I then went lateral to medial, taking down the white line and mobilizing the splenic flexure. The splenic flexure was completely mobilized. After that, attention was turned down to the left lower quadrant where I continued to mobilize the sigmoid colon in a lateral to medial fashion. The left ureter was identified and care was taken to stay well away from it. There was a small amount of purulent material encountered when dissecting the sigmoid off the left fallopian tube. Eventually, this was completely dissected free. I then aspirated the fallopian tube to ensure there was no abscess and indeed there was no purulent material produced. I then chose a transection point on the descending colon and transected this with a NERIS 45. I then used the LigaSure to march down the mesentery along the colon until I reached my distal transection point on the proximal rectum. The rectum was cleared there and transected with NERIS 45. The specimen was then completely freed and placed out of the way. I then made sure that the proximal descending colon would reach. There seemed to be some tension at the inferior mesenteric artery. I therefore created a small window at the proximal VENKATA and then transected it with the NERIS 45 white load. This allowed the colon to reach better. I then made a small Pfannenstiel incision and brought out the specimen and handed this off. I then attempted to bring out the proximal colon, but it seemed a little bit tight. I then went back to the laparoscopic view and continued to mobilize the colon taking a few flimsy attachments that had been missed. This allowed it to reach better into the pelvis without any tension. I once again delivered the descending colon transection point through the Pfannenstiel. A wound protector had been applied. I then cut off my staple line. There was good healthy bleeding. I secured a 29 mm EEA anvil. The anus was dilated up and then the staple placed through the anus for a stapled anastomosis. There was a significant amount of difficulty getting the stapler all the way to the rectal transection point. Eventually, I elected to just bring out the pin through the anterior rectum and created a stapled end-to-side anastomosis. There was no tension. The donuts were intact. I then tested the anastomosis by insufflating air through the anus with the anastomosis under water under laparoscopic visualization. No leak was identified with good distention of the anastomosis. I then closed the 12 mm port site with 0 PDS suture with a laparoscopic suture passer. The remaining ports were then removed and the fascia was closed with 0 PDS. Skin incisions were closed using 4-0 Monocryl. The entire procedure was well tolerated without complication. JORDAN
[2016-12-21 20:56] LABS: APPEARANCE,URINE CLEAR (CLEAR,HAZY); COLOR,URINE YELLOW (YELLOW); OCCULT BLOOD,URINE NEGATIVE (NEGATIVE); PH,URINE 5.5 (5.0-8.0); UROBILINOGEN,URINE NORMAL (NORMAL)
[2016-12-21] MEDS: Dextrose 5% 500 ML IV SCH (21:29)
[2016-12-21] MEDS: Total Parenteral Nutrition 1 BAG IV SCH (21:59)
[2016-12-21] MEDS: Lactated Ringer's 1,000 ML IV SCH (21:59)
[2016-12-21 22:11] LABS: BASOPHILS % (AUTO) 0.1 % (0-3); EOSINOPHILS % (AUTO) 0.2 % (0-5); MONOCYTES % (AUTO) 4.7 % (4-12); Mean Corpuscular Volume 89.2 fL (81-100); NEUTROPHILS % (AUTO) 90.1 % (40-74); Platelet Count 209 bil/L (150-400)
--- NOTE | 2016-12-21 22:36 | NUR ---
back from PACU pt back from PACU 2119, CARBON CAPTURE POWER PLANT ENGINEER dilaudid running, changed tubing for D5W at 10cc/hr and hung new TPN, pt with 5 lap sites with steri strips under and bandaids on top, 2 left abd, 2 right abd, one right above belly button, pt also with an incision unable to see lower mid abd with 4x4 and medi tape over also c/d/i, pt very drowsy when wakes she states she is in pain 12/08, has non-rebreather at 10L for 6 hours (until 99), family in room, SCDs reconnected, pt with PASSENGER CAR CONDUCTOR in place, tele SR-ST, pts BP elevated gave IV labetolol 5mg, cont to check BP, received order for LR at 100c/hr until pt taking PO, marcelino draining well, IV tylenol also given. pt denies any nausea at this time.
[2016-12-22] VITALS (9 sets, daily range): BP systolic 104–148; BP diastolic 63–77; PULSE 78–105; RESP 17–21; O2SAT 96–99
[2016-12-22] MEDS: Heparin 5,000 Unit/mL Inj SUBQ SCH ×3 (00:13→15:40)
[2016-12-22] MEDS: Insulin REGULAR SS Low-Dose SUBQ PRN (00:15)
[2016-12-22] MEDS: HYDROmorphone PCA 0.2 mg/mL 30 mL Inj IV PRN ×2 (02:44→15:07)
[2016-12-22] MEDS: Acetaminophen IV 1,000 MG in IV Premix 1 EACH IV SCH ×4 (03:19→21:35)
[2016-12-22 04:24] LABS: BASOPHILS % (AUTO) 0.1 % (0-3); EOSINOPHILS % (AUTO) 0.3 % (0-5); MONOCYTES % (AUTO) 9.3 % (4-12); Mean Corpuscular Hemoglobin 28.9 pg (27.0-35.0); Mean Corpuscular Volume 88.4 fL (81-100); NEUTROPHILS % (AUTO) 77.1 % (40-74); Platelet Count 224 bil/L (150-400)
[2016-12-22 04:57] LABS: Magnesium 1.5 mg/dL (1.6-2.6); Phosphorus 3.3 mg/dL (2.5-4.9)
--- NOTE | 2016-12-22 05:05 | NUR ---
mag pts mag this morning 1.5 pt is on TPN called pharmacy, no new orders received. per pharmacy he will address it with day pharmacy to see weather they want a rider or increase mag in TPN Addendum: 12/22/16 at 0627 by TEA ANDERSON RN pharmacy called back and gave a 2gm rider will recheck 1 hour post infusion
[2016-12-22] MEDS ORDERED: MAG SULF IV ONE (05:15)
--- NOTE | 2016-12-22 06:27 | NUR ---
hypertension in PACU pt hypertensive, PACU gave BP meds with some effect, once pt to the floor still hypertensive gave 5mg IV labatolol x1 BP resolved and is stable, tele SR-ST 90-110s
--- NOTE | 2016-12-22 06:28 | NUR ---
pain/UPPER MARKER pt with a UPPER MARKER of dilaudid set at 0.1mg with 10 minute intervals with a lock out of .6, not controlling pain gave 0.2mg bolus x2 ten minutes apart with little effect then increased dose to 0.2mg that seemed to control pain better. pt also received IV tylenol q6 and lots of repositioning. the pain in at the lower incision site pt reports it feels like pressure. pt denies any nausea all shift, tolerating water and ice chips
[2016-12-22] MEDS: Lactated Ringer's 1,000 ML IV SCH ×2 (08:48→17:40)
--- NOTE | 2016-12-22 09:06 | PROG NOTE ---
[address] [address] PROGRESS NOTE PATIENT: YUNIER TRUJILLO : 1950 MR#: [id number] ADMIT: 12/16/2016 JOB ID: [id number] DATE: 12/22/2016 SUBJECTIVE: The patient is seen postoperative day one from laparoscopic sigmoid colectomy. This morning, the patient is doing okay. She was a little tachycardic overnight and had some incisional pain, but tells me that the pain associated with her diverticulitis is gone. She has remained afebrile since surgery. This morning, she is hemodynamically normal, with a heart rate of 81 and blood pressure 131/67. In general, she appears comfortable, in no acute distress. Her abdomen is soft, nondistended and not significantly tender. Her dressings are clean, dry and intact. LABORATORY STUDIES: Her white blood cell count this morning is 9, down from 12.6, immediately postoperative. Her hematocrit is stable at 31.2. Her creatinine is 0.67. Her albumin is 3.1. Her blood sugar this morning was 132. It was elevated overnight. ASSESSMENT AND PLAN: This is a 66-year-old female, postoperative day one from laparoscopic sigmoid colectomy for sigmoid diverticulitis. Overall, she is doing well. She will be on the ERAS protocol. Continue TPN for now.
--- NOTE | 2016-12-22 10:42 | PCM.PHAPRO ---
Progress Nausea, dehydration and hypokalemia. TPN #6 PostOp day 1 following Sigmoid Collectomy Indication: Diverticulitis, chronic, with significant weight loss Surgery scheduled in near future. At risk for refeeding syndrome Briefly, I. Fluids/HD VS currently stable LR at 100mL/hr continues postoperatively II. Chem Lytes WNL and without trends SCr at baseline III. Glucose 151 on am labs a/ Anticipate increase with combination of postop state and advancing tpn dextrose p/ Cover with Regular SQ insulin IV. Substrate Increasing today per Nutrition to 1550 kcal PARENTERAL NUTRITION ORDERS 6 22-Dec-16 Standard Hang Time: 2100 Substrates Total kcal: 1550 AMINO ACIDS 75 g DEXTROSE 250 g Total Volume (mL): 1800 LIPIDS 40 g Sterile Water for Injection QS mL To Infuse Over (hrs): 24 Total Volume 1800 mL At at a rate of (mL/hr): 75 Additives Sodium Chloride 80 mEq "typical" daily requirements Sodium Acetate 40 mEq Sodium 50-120mEq Potassium Chloride 50 mEq Potassium 60-120mEq Potassium Phosphate 30 mEq Phosphate 20-40mEq Calcium Gluconate 12 mEq Magnesium 8-32mEq Magnesium Sulfate 16 mEq Calcium 9-22mEq Acetate* 80-120mEq Chloride* 80-120mEq Regular Insulin 0 units *Depending on acid-base status Famotidine 40 mg Multivitamins 1 std dose Insulin Regimen Trace Elements 1 std dose none Thiamine mg Regular Low Intensity Subcut X Folic Acid mg Regular Medium Intensity Subcut Ascorbic Acid mg Regular High Intensity Subcut Regular Insulin Infusion Other: Special Instructions: To be infused via central line only. For delay or inturruption of TPN contact the pharmacist for alternative replacement solution. Signature Date: YUNIER TRUJILLO 2006 Jomar Kwong S Pharm D December 22, 2016 10:42
--- NOTE | 2016-12-22 10:50 | NUR ---
NUTRITION FOLLOW-UP: ASSESS: 66 YO F admitted with severe diverticulitis, status post peridiverticular abscess. Pt with poor PO intake for at least a week and a half prior to admit. She has been sustaining himself on Jell-O on ice chips. She has lost 22.88 pounds (10.4 kg) x 1 month = 12.34% = significant weight loss. Pt is post-op day 1 for lap colectomy. PO has been sips. Diet was advanced to full liquid today. TPN is to be increased today to ~75% of estimated needs. PMHx: Abdominal pain, diverticulitis, recent shingles, recent hyperkalemia. DIET: Full liquid. PO sips TPN: 175g Dex, 50g AA and 30g lipids providing 1095kcal and 50g pro LABS: Reviewed. Glu 151, Mg 1.5, ALT 33, Alb 3.1 MEDICATIONS: Reviewed. GI: 2 BM 12/19. SKIN: No issues reported. ANTHROPOMETRICS: Current Wt: 76.6 kg, BMI 28.1 kg/m2. Admit weight: 73.9 kg, BMI: 27.0 kg/m2, IBW: 56.8 kg (130.15 IBW), UBW: 84.3 kg. ESTIMATED NEEDS Calories: 1439-8446 kcal/day (22-30 kcal/kg BW) Protein: 90-110 g/day (1.2-1.5 g/kg BW) Fluid: Approx 2220 mL (30 mL/kg BW) NUTRITION DIAGNOSIS: 1) Inadequate oral intake related to altered GI function, as evidenced by NPO status, requirement for TPN to build reserves for upcoming colectomy - PERSISTS. 2) Severe pro/kcal malnutrition related to altered GI function as evidence by 12.4% wt loss x1 month, PO intake less than 75% of estimated needs for more than 1 month and need for TPN. INTERVENTION: 1) Recommend continue to advance diet as tolerated. Impact advance recovery has been added to all trays. Will monitor for PO intake/tolerance 2) Recommend advance TPN today to 250g Dex, 75g AA and 40g lipids to provide 1550kcal and 75g pro. (~75% kcal and protein needs) pharmacy is aware. 3) Will monitor pts PO intake. If she is not tolerating her diet, recommend advance TPN to goal of 325g Dex, 105g AA and 55g lipids (2075kcal and 105g pro) MONITOR/EVALUATE: PO intake, diet advance/tolerance, TPN tolerance/advance, labs, GI/nutrition status. Follow per high nutrition risk guidelines.
--- NOTE | 2016-12-22 12:27 | NUR ---
Social Work Note: Continued Discharge Planning Data& Assessment: EMR reviewed. Per MD in morning rounds, pt is not medically ready for discharge at this time. SW met with pt and pt daughter Samantha at bedside to check in and assess for any unmet needs. Pt underwent Colon resection yesterday 12/21 and is recovering from that procedure. Pt has not been able to ambulate out of bed at this time but she hopes to try walking with RN this afternoon. Pt daughter to transport pt home when medically ready. Pt and pt family deny any needs at this time. SW to continue to follow if any pt needs or MD orders arise. Plan: Anticipated discharge home via POV when medically ready. Pt and pt family deny any needs at this time. SW to continue to follow if any pt needs or MD orders arise. MINAL Winters
--- NOTE | 2016-12-22 12:44 | NUR ---
Pain/abdomen/activity Abdomen soft with hypoactive bowl sounds throughout but tender to the touch especially lower mid abdomen- patient denied have had pass any gas so far today. Abdominal dressings remained C/D/I. Patient was reluctant to get up this morning due to having abdominal pain 3-5/10. Patient was encouraged to use her TOOL HARDENER Dilaudid fro pain control. Tylenol IV was given as schedule. Pain decreased to 1-2/10 and by noon time patient was able to sit at the side of the bed for about 10min and stand with walking in place without increase of pain. Patient denied felling dizzy but required one persona assist with getting out off bed. Patient seemed relieved that her pain did not increased with activity opposite of what she was anticipating. After this exercise patient was motivated to get up and walk after having some rest. Will remove Hooker catheter when patient is ambulating well.
[2016-12-22] MEDS ORDERED: Lactated Ringer's 500 ML IV SCH (16:15)
[2016-12-22] MEDS: Dextrose 5% 500 ML IV SCH (17:45)
--- NOTE | 2016-12-22 18:25 | NUR ---
Hooker cath removed Patient was able to ambulate around her bed in her room with one persona assist and tolerated the activity well. Patient denied having any increase of pain during activity- Hooker catheter was removed this evening after deflating 10ml fluid balloon. Patient since urinated x1 150ml of light yellow clear urine while sitting on a bedside commode.
[2016-12-22] MEDS: Total Parenteral Nutrition 1 BAG IV SCH (21:35)
--- NOTE | 2016-12-22 22:26 | NUR ---
Transfer of care Pt Transferred to [facility] room 1027. Report given to Brittany Chambers RN.
[2016-12-23] VITALS (23 sets, daily range): BP systolic 116–209; BP diastolic 71–121; PULSE 85–117; RESP 12–40; O2SAT 95–100
[2016-12-23] MEDS: Heparin 5,000 Unit/mL Inj SUBQ SCH ×3 (00:25→17:10)
--- NOTE | 2016-12-23 03:46 | NUR ---
Transfer Patient arrived to room 1027 around 2100. A&Ox3, answering questions appropriately. Able to stand and walk to [facility] bed. FLAVOR MAKER of Dilaudid @ .2//.6, and states is controlling pain fairly well. DL PICC with LR @ TKO in one line and TPN @ 75 in the other. SCDs placed. CPOx placed- high 90's on RA. Able to get up to BSC with SBA. Oriented to room and call light.
[2016-12-23] MEDS: Insulin REGULAR SS Low-Dose SUBQ PRN ×3 (08:31→18:27)
--- NOTE | 2016-12-23 08:57 | PROG NOTE ---
[address] [address] PROGRESS NOTE PATIENT: YUNIER TRUJILLO : 1950 MR#: [id number] ADMIT: 12/16/2016 JOB ID: [id number] DATE: 12/23/2016 SUBJECTIVE: The patient is seen postoperative day 2 from a laparoscopic sigmoid colectomy. The patient tells me that she is feeling much better this morning. She continues to have some mild incisional pain, but otherwise feels well. She is eager to go home. She has not yet had any flatus. She is having no nausea. OBJECTIVE: She has remained afebrile. Heart rate in the 80s to 90s. Her blood pressure is a little high this morning is 164/82. In general she appears comfortable no acute distress. Her abdomen is soft, not distended, and not significantly tender. Her dressings were removed. Her incisions look fine. Her blood sugar was mildly elevated this morning at 164 for which she has received 1 unit of insulin. ASSESSMENT AND PLAN: This is a 66-year-old female, postoperative day 2 from a laparoscopic sigmoid colectomy for diverticulitis. Overall, she is doing well. I am going to transition off the LIBRARY HELPER to oral pain medications. Encouraged her to ambulate. I am going to keep the TPN running for now and will plan on discontinuing that when she starts having bowel function and tolerates a more advance diet.
--- NOTE | 2016-12-23 10:51 | PCM.PHAPRO ---
Progress Nausea, dehydration and hypokalemia. PARENTERAL NUTRITION ORDERS 7 23-Dec-16 Standard Hang Time: 2100 Substrates Total kcal: 1550 AMINO ACIDS 75 g DEXTROSE 250 g Total Volume (mL): 1800 LIPIDS 40 g Sterile Water for Injection QS mL To Infuse Over (hrs): 24 Total Volume 1800 mL At at a rate of (mL/hr): 75 Additives Sodium Chloride 80 mEq "typical" daily requirements Sodium Acetate 40 mEq Sodium 50-120mEq Potassium Chloride 50 mEq Potassium 60-120mEq Potassium Phosphate 30 mEq Phosphate 20-40mEq Calcium Gluconate 12 mEq Magnesium 8-32mEq Magnesium Sulfate 16 mEq Calcium 9-22mEq Acetate* 80-120mEq Chloride* 80-120mEq Regular Insulin 0 units *Depending on acid-base status Famotidine 40 mg Multivitamins 1 std dose Insulin Regimen Trace Elements 1 std dose none Thiamine mg Regular Low Intensity Subcut X Folic Acid mg Regular Medium Intensity Subcut Ascorbic Acid mg Regular High Intensity Subcut Regular Insulin Infusion Other: Special Instructions: To be infused via central line only. For delay or inturruption of TPN contact the pharmacist for alternative replacement solution. Signature Date: [id number] [address] [facility] Diaz Sanchez Pharm.D December 23, 2016 10:51
--- NOTE | 2016-12-23 11:20 | NUR ---
Activity Patient expressed desire to ambulate in hallway this AM and talked about wanting getting bowels moving, RN OFFICE DC'd, and TPA decreased. Patient seemed motivated to get discharged as soon as possible. Ambulated in hallway with MOTOR OPERATOR this AM SBA and tolerated the activity well, denied N, V and pain. Was able to take a few bites of breakfast after walk and had no complaints of abdominal discomfort after. Appetite is diminished and patient stated that she is worried about getting an upset stomach after not being able to eat for sometime now. RN OFFICE DC'd. Pain currently relieved with PO medication. Hourly rounding continues.
[2016-12-23] MEDS ORDERED: Glycopyrrolate 0.2 MG/ML 1mL Inj ONE (13:42)
[2016-12-23] MEDS ORDERED: Rocuronium 10 mg/mL 5 mL Inj ONE (13:42)
[2016-12-23] MEDS ORDERED: fentaNYL-PF 50 mCg/mL 2 mL Inj ONE (13:42)
[2016-12-23] MEDS ORDERED: Propofol 10,000 mCg/mL 20 mL Inj ONE (13:42)
[2016-12-23] MEDS ORDERED: Ketamine 10 mg/mL 20 mL Inj ONE (13:42)
[2016-12-23] MEDS ORDERED: Neostigmine 1 mg/mL 10 mL Inj ONE (13:42)
[2016-12-23] MEDS ORDERED: EPHEDrine/NS 5 mg/mL 5 mL Syringe ONE (13:42)
[2016-12-23] MEDS ORDERED: HYDROmorphone 2 mg/mL Inj ONE (13:42)
[2016-12-23] MEDS ORDERED: Succinylcholine Chloride 20 mg/mL 5 mL Inj ONE (13:42)
[2016-12-23] MEDS ORDERED: Phenylephrine/NS-PF 100 mCg/mL 5 mL Syringe IVPUSH ONE (13:42)
[2016-12-23] MEDS: Ondansetron 2 mg/mL 2 mL Inj IVPUSH PRN ×3 (14:09→19:28)
[2016-12-23] MEDS ORDERED: LORazepam 0.5 mg Tablet PO ONE (15:00)
[2016-12-23] MEDS: Acetaminophen IV 1,000 MG in IV Premix 1 EACH IV SCH ×2 (15:19→23:20)
--- NOTE | 2016-12-23 15:33 | NUR ---
Elevated BP/Nauseous Alerted by PEDIATRIC SOCIAL WORKER that patient felt nauseous, went into room with IV zofran and BP was just taken and elevated @ 209/121. Patient stated she didn't feel any specific pain, but just horrible in general. Administered IV zofran 4mg and paged Dr. Marcus. Re cheked patient in 10 mins and was still nauseous and had emesis x1. Administered 4mg more of zofran. Rechecked BP and it was 188/119. Dr. Marcus came to see patient and gave new orders for 1x PO ativan and switched tylenol to IV form. Patient stated she was starting to feel pain and rated it 5/10. Administered IV morphine with little relief within 30 mins. Administered IV tylenol and PO ativan. Patient is no longer throwing up. BT's are hypoactive. Patient did not eat/drink anything for lunch besides water. Continuing to monitor patient.
[2016-12-23] MEDS ORDERED: HYDROmorphone PCA 0.2 mg/mL 30 mL Inj IV ONE (17:58)
[2016-12-23] MEDS ORDERED: HYDROmorphone 1 mg/mL Inj IVPUSH PRN ×3 (18:05→21:30)
[2016-12-23] MEDS: HYDROmorphone PCA 0.2 mg/mL 30 mL Inj - Over 64 Yrs/SA IV PRN (18:09)
--- NOTE | 2016-12-23 18:18 | NUR ---
PAIN Pt's BP continued to remain elevated and pain was not relieved by 1st dose of IV morphine or IV tylenol. Patient also took hot shower to see if it would help. Administered another 1mg of IV morphine @ 1625, with no relief noted from patient approx 30 mins later. Still rating pain an 8/10 to entire abdomen and describing it as pressure. BP was down to 185/112. Paged x2 and got a hold of Dr. Marcus and received orders to restart LITIGATION PARALEGAL dilaudid. LITIGATION PARALEGAL was restarted and gave patient loading dose of 0.2mg, explained how LITIGATION PARALEGAL works and when to push the button. When I entered the room to start LITIGATION PARALEGAL, patient was very anxious about pain mgmt. Continue to monitor patient.
[2016-12-23 19:31] LABS: BASOPHILS % (AUTO) 0.2 % (0-3); EOSINOPHILS % (AUTO) 0.3 % (0-5); MONOCYTES % (AUTO) 6.9 % (4-12); Mean Corpuscular Hemoglobin 29.1 pg (27.0-35.0); Mean Corpuscular Volume 84.1 fL (81-100); NEUTROPHILS % (AUTO) 80.2 % (40-74); Platelet Count 281 bil/L (150-400)
[2016-12-23] MEDS ORDERED: Piper-Tazo 3.375 Gm/50 mL D5W Minibag Plus - Q8H over 4 hrs IV ONE ×2 (19:55)
--- NOTE | 2016-12-23 20:24 | PCM.HPANE ---
Patient Data Date of Service: December 23, 2016 Surgeon Admitting Provider:Alistair Parrish MD Attending Provider:Alistair Parrish MD Primary Care Physician:Other,Physician Other Provider:Julia Johnson Reason for Visit Diverticulitis DIVERTICULITIS Ht/WT & BMI Height (Feet): 5 Height (Inches): 5.00 Weight (Kilograms): 77.200 Body Mass Index 27.14 Allergies Coded Allergies: ciprofloxacin (Verified Allergy, Unknown, Rash, 11/14/16) metronidazole (Verified Allergy, Unknown, 12/03/16) Past Anesthesia History Anesthesia History: Denies:: Abnormal Airway, Anesthesia Reactions, Difficult Intubation Diabetes History Hx Diabetes?: No Current Bedside Blood Glucose: 220 MRSA MRSA: No Medications Hypertension Medication: No Home Meds Incl Beta Gianna: No Active Scripts Ondansetron ODT 4 Mg Tab.rapdis4 Mg PO TID #30 TABLET Prov:Mendy Germain MD 12/03/16 Potassium Chloride 10 Meq Capsule.er10 Meq PO DAILY #20 CAPSULE Ref 0 TAKE WITH FOOD Prov:Mendy Germain MD 12/03/16 oxyCODONE 5 Mg Tablet5-10 Mg PO Q4H PRN For Moderate Pain #20 TABLET Prov:Yusuf Ruiz DO 11/16/16 Amoxicillin/Clav K 875-125 mg (Augmentin 875-125 mg)1 Each Tablet1 Tablet PO BID #15 TABLET Ref 0 Prov:Yusuf Ruiz DO 11/16/16 Reported Medications Cholestyramine (Cholestyramine Packet)4 Gm Packet4 Gm PO DAILY Ref 0 11/14/16 [place]-3/Dha/Epa/Fish Oil (Fish Oil 1,600 mg/5 ml Liquid)1,600 Mg-500 Mg-800 Mg/ 5 Ml Liquid1,600 Mg PO DAILY 11/14/16 Cholecalciferol (Vitamin D3) (Vitamin D3)5,000 Unit Capsule5,000 Unit PO DAILY 11/14/16 Lactobacillus Combo No.11 (Probiotic)1 Each Cap.sprink1 Each PO BID 11/14/16 Discontinued Reported Medications Hydrocodone-Acetaminophen 5-325 mg 1 Each Tablet1 Tablet PO TID PRN For Pain Ref 0 11/14/16 Discontinued Scripts Oxycodone (Roxicodone)5 Mg Tablet5-15 Mg PO Q4H PRN For Pain #40 TABLET Ref 0 Prov:Mendy Germain MD 12/03/16 Metronidazole (Flagyl)500 Mg [id number] Mg PO Q8H #30 TABLET Prov:Mendy Germain MD 12/03/16 Amoxicillin 500 Mg Capsule1,000 Mg PO BID #30 CAPSULE Ref 0 Prov:Yusuf Ruiz DO 11/16/16 History History of ENT Problems?: No HEENT History: Denies:: Abnormal Airway Cataracts Difficult Intubation Dysphagia Glaucoma Hearing Problem Sinus Problem TMJ Denture Type: None Teeth Condition: Within Normal Limits Hx of Heart Problems?: Yes Cardiovascular History: Positive for:: Hypertension (patient has been severely hypertensive today 190-200/100s) Denies:: Congestive Heart Failure Hx of Respiratory Problem?: Yes (patient is currently tachypneic) Respiratory History: Denies:: Tuberculosis Hx Neurologic Problems?: No Hx of GI Problems?: Yes Other History/Comment Sigmoid colectomy 2 days ago for complicated diverticulitis. Concern for anastamotic leak. Hx of Problems?: Yes Genitourinary History: Positive for:: Urinary Tract Infection Denies:: HX of Hemodialysis Kidney Stones HX of Peritoneal Dialysis: No Female Hx: Denies:: Currently Endometriosis Pelvic Inflammatory Problems with Breasts? Hx Musculoskeletal Problems?: Yes Musculoskeletal History: Positive for:: Musculoskeletal Trauma (cortisone shot bilat knees) Denies:: Back Injury Joint Replacement Hx of Psycho/Social Problems?: No Hx Surgeries?: Yes (galbladder) Hx Any Other Health Problems?: Yes Other History: Positive for:: Cancer (skin cancer on face, removed ) Hospitalization (diverticulitis) Denies:: Thyroid Disease History Blood Transfusions: Positive for:: Accept Blood Products? Denies:: Blood Transfusions Hx Diabetes: NoBedside Blood Glucose: 220 Occupation: she works as an ICU nurse in [employer] Hx Alcohol Use: YesAlcoholic Drinks Per Day: 2 glasses wineHx Substance Use: No Smoking Status: Unknown if Ever Smoker Stop/Bang Treated for Sleep Apnea?: No Do You Have a CPAP Machine?: No S-Snoring: Do You Snore Loudly: No T-Tired: feel tired, fatigued: No O-Obsered: Observed not breath: No P-Blood Pressure: treated: No B- Body Mass Index > 35 kg/m2: No A- Age over 50: Yes N- Neck Large Circumference: No G- Gender Male: No JEAN PAUL Total Score: 0 JEAN PAUL Risk Assessment: Low Risk, <3 Yes Risk Assessment Category Category 1A: Patient has history of documented sleep apnea, and HAS NOT received any narcotic, sedative or anesthesia administration during this stay. Category 1B: Patient has history of documented sleep apnea, and HAS received any narcotic , sedative or anesthesia administration during this stay Category 2: Patient has SUSPECTED Obstructive Sleep Apnea, and HAS received any narcotic , sedative or anesthesia administration during this stay. Category 3: Patient has SUSPECTED Obstructive Sleep Apnea and HAS NOT received narcotic, sedative or anesthesia administration during this stay. Category 4: Outpatient in Procedural Areas with known sleep apnea or who screen positive for High Risk via the STOP/BANG questionnaire. Low Risk, <3 Yes Exam Exam Vital Signs Vital Signs Date Time Temp Pulse Resp B/P Pulse Ox O2 Delivery O2 Flow Rate FiO2 12/23/16 19:31 36.7 96 40 181/109 99 Room Air 12/23/16 17:19 36.2 111 18 185/112 96 Room Air 12/23/16 16:15 37.1 111 18 190/118 96 Room Air 12/23/16 16:05 108 192/111 12/23/16 14:44 188/119 Room Air 12/23/16 14:03 36.7 95 18 209/121 97 Room Air General Appearance: Alert, Oriented X3 HEENT/AIRWAY: MP 2 Lungs: Normal Air Movement Heart: Regular Rate/Rhythm, Normal S1, Normal S2, No Murmurs/Rubs/Gallops Meds/Labs/Diagnostics Admission Meds Current Medications Acetaminophen (Tylenol) 975 mg Q6H PO Last administered on 12/23/16 10:05; Start 12/23/16 at 08:35; Stop 12/23/16 at 15:00; Status DC Lorazepam 0.5 mg 0.5 mg ONCE ONCE PO Last administered on 12/23/16 15:09; Start 12/23/16 at 15:00; Stop 12/23/16 at 15:04; Status DC Acetaminophen 1000 mg/Premix 100 ml @ 400 mls/hr Q6H IV Last administered on 15:19; Start 12/23/16 at 15:00; Stop 12/24/16 at 15:01 Dextrose/Water (D5W) 500 ml @ 25 mls/hr Q20H IV Last administered on t 18:29; Start 12/23/16 at 18:10 Bedside Blood Glucose: 220 Labs Test 12/16/16 14:28 12/20/16 05:59 12/21/16 20:28 12/22/16 04:05 Lactic Acid Level 2.8mmol/L (0.4-2.0) Lipase 16U/L (13-60) Prothrombin Time 10.3sec (8.1-12.5) Prothromb Time International Ratio 0.96ratio Urine Color Yellow (YELLOW) Urine Appearance Clear (CLEAR,HAZY) Urine pH 5.5 (5.0-8.0) Urine Specific [place] <1.005 (1.003-1.035) Urine Protein Negativemg/dL (NEG,TRACE) Urine Glucose (UA) Negativemg/dL (NEGATIVE) Urine Ketones Negativemg/dL (NEGATIVE) Urine Occult Blood Negative (NEGATIVE) Urine Nitrite Negative (NEGATIVE) Urine Bilirubin Negative (NEGATIVE) Urine Urobilinogen Normalmg/dL (NORMAL) Urine Leukocyte Esterase Negative (NEGATIVE) Urine RBC 0-2/hpf (0-2) Urine WBC 0-5/hpf (0-5) Urine Epithelial Cells Few/hpf (NONE-MOD) Urine Crystals None seen (NONE SEEN) Urine Bacteria Few/hpf (NONE-FEW) Urine Hyaline Casts None/lpf (NONE) Urine Granular Casts None seen (NONE SEEN) Urine Waxy Casts None seen (NONE SEEN) Urine Red Blood Cell Casts None seen (NONE SEEN) Urine White Blood Cell Casts None seen (NONE SEEN) Urine Mucus None seen (None Seen) Urine Trichomonas None seen (NONE SEEN) Urine Yeast None (NONE SEEN) Urinalysis Comment Amorphous sediment Urine Culture Reflexed Not indicated Sodium Level 141mEq/L (134-144) Potassium Level 4.6mEq/L (3.5-5.2) Chloride Level 101mEq/L (97-108) Carbon Dioxide Level 28mmol/L (18-29) Blood Urea Nitrogen 10mg/dL (8-27) Creatinine 0.67mg/dL (0.57-1.00) Estimat Glomerular Filtration Rate 126mL/min (>59) Glucose Level 151mg/dL (60-99) Calcium Level 9.0mg/dL (8.5-10.1) Phosphorus Level 3.3mg/dL (2.5-4.9) Total Bilirubin 0.3mg/dL (0.0-1.2) Aspartate Amino Transf (AST/SGOT) 36U/L (0-50) Alanine Aminotransferase (ALT/SGPT) 33U/L (0-32) Alkaline Phosphatase 66U/L (25-165) Total Protein 5.4g/dL (6.4-8.4) Albumin 3.1g/dL (3.4-5.0) Test 12/22/16 10:10 12/23/16 19:28 Magnesium Level 2.3mg/dL (1.6-2.6) White Blood Count 11.5th/mm3 (3.8-10.1) Red Blood Count 4.29mil/mm3 (3.90-5.20) Hemoglobin 12.5g/dL (12.0-15.6) Hematocrit 36.1% (35.0-46.0) Mean Corpuscular Volume 84.1fL (81-100) Mean Corpuscular Hemoglobin 29.1pg (27.0-35.0) Mean Corpuscular Hemoglobin Concent 34.6% (32.0-37.0) Red Cell Distribution Width 14.8% (12.3-15.4) Platelet Count 281bil/L (150-400) Neutrophils (%) (Auto) 80.2% (40-74) Lymphocytes (%) (Auto) 12.1% (14-46) Monocytes (%) (Auto) 6.9% (4-12) Eosinophils (%) (Auto) 0.3% (0-5) Basophils (%) (Auto) 0.2% (0-3) Plan Impression Patient chart reviewed, patient interviewed and anesthestic plan with risks, benefits, and alternatives discussed, and informed consent obtained. ASA Physical Status: ASA3 Severe Disease Anesthetic Plan: GA Bene/Risks/Altern/Consents: Yes HP Complete Prior to Induction: Yes Adam Ray MD December 23, 2016 20:23
--- NOTE | 2016-12-23 20:26 | NUR ---
To OR At beginning of shift, patient c/o nausea. 4mg Zofran IVP given. Order rec'd from Dr. Marcus to draw STAT CBC. Lab drawn and sent to lab. Dr. Marcus on unit and looked at results of CBC and made aware of RR of 40 & BP of 181/109. Plans to take patient to OR for diagnostic laparoscopy this evening. Consent signed by patient & MD. Patient aware and agreeable to plan. IV antibiotic and chart sent with patient to OR. Off unit @ 2024.
[2016-12-23] MEDS: Lactated Ringer's 1,000 ML IV SCH (20:36)
[2016-12-23] MEDS: Total Parenteral Nutrition 1 BAG IV SCH (21:00)
[2016-12-23] MEDS ORDERED: Bupivacaine-MPF 0.25%/EPI 30 mL Inj INFILTRATE ONE (21:26)
[2016-12-23] MEDS ORDERED: Lactated Ringer's 1,000 ML IV SCH (21:27)
[2016-12-23] MEDS ORDERED: Lactated Ringer's 500 ML IV PRN (21:27)
[2016-12-23] MEDS ORDERED: Atropine 0.4 mg/mL Inj IVPUSH PRN (21:30)
[2016-12-23] MEDS ORDERED: EPHEDrine Sulfate 50 mg/mL Inj IVPUSH PRN (21:30)
[2016-12-23] MEDS ORDERED: MetoCLOpramide 5 mg/mL 2 mL Inj IVPUSH PRN (21:30)
[2016-12-23] MEDS ORDERED: Phenylephrine 10,000 mCg/mL Inj IVPUSH PRN (21:30)
[2016-12-23] MEDS ORDERED: Labetalol 5 mg/mL 4 mL Inj IV PRN (21:30)
[2016-12-23] MEDS ORDERED: fentaNYL-PF 50 mCg/mL 2 mL Inj IVPUSH PRN (21:30)
[2016-12-23] MEDS ORDERED: Ondansetron 2 mg/mL 2 mL Inj IVPUSH PRN (21:30)
[2016-12-23] MEDS ORDERED: Lactated Ringer's 500 ML IV ONE (22:17)
--- NOTE | 2016-12-23 22:33 | PCM.ANEP1 ---
Post Anesthesia PACU Phase 1 Assessment Date of Service: December 23, 2016 Vital Signs Vital Signs Date Time Temp Pulse Resp B/P Pulse Ox O2 Delivery O2 Flow Rate FiO2 12/23/16 22:25 117 15 149/79 100 Non-Rebreather 10 12/23/16 22:20 116 13 153/86 100 Non-Rebreather 10 12/23/16 22:15 108 15 138/89 100 Non-Rebreather 10 12/23/16 22:10 106 14 138/80 100 Non-Rebreather 10 12/23/16 22:05 107 15 132/74 100 Non-Rebreather 10 12/23/16 22:00 36.3 106 13 116/71 100 Simple Mask 8 12/23/16 19:31 36.7 96 40 181/109 99 Room Air 12/23/16 17:19 36.2 111 18 185/112 96 Room Air 12/23/16 16:15 37.1 111 18 190/118 96 Room Air 12/23/16 16:05 108 192/111 12/23/16 14:44 188/119 Room Air Anesthetic Administered: GA Level of Alertness: Sleepy, easy to arouse Pain: Yes Pain Scale Score: 8 Nausea or Vomiting: No CV Function & Hydration Stable: Yes Airway Device: Oralpharangeal Airway Oxygen Delivery: Simple Mask Lungs: Normal Air Movement PACU Phase 2 Assessment Patient Instructions Provided: N/A Adam Ray MD December 23, 2016 22:33
--- NOTE | 2016-12-23 23:34 | OP ---
[address] [address] OPERATIVE REPORT PATIENT: YUNIER TRUJILLO : 1950 MR#: [id number] ADMIT: 12/16/2016 JOB ID: [id number] DATE OF SURGERY: 12/23/2016 ANESTHESIA: General. PREOPERATIVE DIAGNOSIS(ES): Recent sigmoid colectomy with concern for anastomotic leak. POSTOPERATIVE DIAGNOSIS(ES): Negative diagnostic laparoscopy with no evidence of anastomotic leak. OPERATION: Diagnostic laparoscopy. SURGEON: Sachin Marcus MD PEANUT CLEANER: Burton Rg PA-C (the vet assistant was required for the safe and timely completion of the case). COMPLICATIONS: None. ESTIMATED BLOOD LOSS: None. CONDITION: Satisfactory. SPECIMEN: None. FINDINGS: There was no evidence of a leak. I performed a leak test by clamping the distal colon and insufflating air through the anus with the anastomosis submerged and there was no leak. Furthermore, rigid proctoscopy showed no evidence of leak. Her right colon was very distended. So, I therefore followed her colon all the way back from the anastomosis. There was no twist or evidence of mechanical obstruction. The left fallopian tube looked no different than at the first operation. INDICATIONS/SIGNIFICANT HISTORY: The patient is a 66-year-old female for whom I performed a laparoscopic sigmoid colectomy for sigmoid diverticulitis two days ago. She was malnourished preoperatively and had been struggling with pain for quite some time, prompting a semi-urgent operation. Over the last two days, she did very well until this afternoon when she started passing flatus, had a bowel movement and then suddenly became tachycardic and hypertensive with tremendous abdominal pain. She had a leukocytosis. I discussed further diagnostic workup versus a diagnostic laparoscopy with the patient and we agreed to proceed with a diagnostic laparoscopy. OPERATIVE TECHNIQUE: The patient was taken to the operating room and placed in the supine position. General anesthesia was administered and preoperative antibiotics were given. The abdomen was prepped and draped in the standard surgical fashion. A procedural pause was performed. I entered the abdomen through her fresh 5 mm port sites by simply inserting the port without the obturator and insufflating. I used the right lateral port sites and the midline port sites to insert 5 mm ports and the 12 mm in the right lower quadrant. I then inspected the pelvis. There was a little bit of fluid, but nothing suggestive of enteric contents. I irrigated this out. There was no pus. I identified the rectal stump and the anastomosis and could find no evidence of a leak. My colleague, Dr. Vasquez, then came in the room and I had him insufflate from below while I clamped just proximal to the anastomosis. This was with the anastomosis submerged under water. There was no leak identified. He also visualized the anastomosis with the rigid proctoscopy and said that it looked fine. At this point, I inspected the rest of the abdomen. There was no evidence of any other bowel injury. The right colon and cecum were very distended. I then entertained the idea that perhaps there was a twist in the descending colon. I followed this up from the anastomosis and there was no evidence of a twist. There was no clear sharp point of demarcation between distended and nondistended colon. I suspect that she just has a functional obstruction. I therefore elected to place a 19-Lao WARNER drain into the pelvis in the area of the rectal stump and brought this out through the right lower quadrant incision. Local anesthetic was injected and the other incisions were closed with Monocryl. The case was then concluded. JORDAN
[2016-12-24] VITALS (13 sets, daily range): BP systolic 128–147; BP diastolic 77–83; PULSE 81–104; RESP 15–20; O2SAT 94–98
[2016-12-24] MEDS: Heparin 5,000 Unit/mL Inj SUBQ SCH ×3 (00:20→16:51)
--- NOTE | 2016-12-24 00:48 | NUR ---
Back from OR Patient back on unit around 2300 on OSC bed. On 10L non-rebreather until 0400. CPOx- 100%. Hooker patent and draining a small amount of pale urine upon arrival. Patient kept trying to get out of bed, asking to use the bathroom. BP- 167/102, HR 107. Hooker repositioned and increase in pale urine output noted. No longer trying to get OOB. Vitals rechecked: 135/81, HR 104. NGT hooked up to continuous suction per MD order, very small amount of brown output noted upon hooking up. No further output noted. Per conversation with MD, this is to try and decrease oral intake. New TPN bag hung @ 75 ml/hour. SCDs placed. WARNER draining sanguineous drainage. Bed alarm in place for safety.
[2016-12-24] MEDS: Acetaminophen IV 1,000 MG in IV Premix 1 EACH IV SCH ×3 (02:50→16:51)
[2016-12-24] MEDS: Piperacillin-Tazo 3.375 Gm Inj 3.375 GM in Dextrose 5% Minibag Plus 50 ML IV SCH ×3 (03:36→20:04)
[2016-12-24 04:11] LABS: Mean Corpuscular Hemoglobin 29.1 pg (27.0-35.0); Mean Corpuscular Volume 84.5 fL (81-100)
[2016-12-24 04:45] LABS: Magnesium 1.8 mg/dL (1.6-2.6); Phosphorus 3.7 mg/dL (2.5-4.9)
[2016-12-24] MEDS: Insulin REGULAR SS Low-Dose SUBQ PRN ×3 (08:42→17:09)
[2016-12-24] MEDS ORDERED: [UNRECOGNIZED DRUG - REMARK] IV ONE (10:15)
[2016-12-24] MEDS ORDERED: 0.9% Sodium Chloride 250 ML IV ONE (10:30)
--- NOTE | 2016-12-24 10:51 | NUR ---
NUTRITION FOLLOW-UP: ASSESS: 66 YO F admitted with severe diverticulitis, status post peridiverticular abscess; recently went to OR for laparoscopy 12/23 with concern for leak after +BM/flatus with abdominal pain and low BP, however no evidence of leak, MD placed NGT on continuous suction, notes probable functional obstruction. Pt remains NPO. Spoke with pharmacy re TPN increase to fully meet pt. estimated needs as po intake poor x2days and with current NPO status. Pt with poor PO intake for at least a week and a half prior to admit. She has been sustaining herself on Jell-O on ice chips. She has lost 22.88 pounds (10.4 kg) x 1 month = 12.34% = significant weight loss. Pt is post-op day 1 for lap colectomy. PO has been sips. PMHx: Abdominal pain, diverticulitis, recent shingles, recent hyperkalemia. DIET: Full liquid. PO sips TPN: 250g Dex, 75g AA and 40g lipids to provide 1550kcal and 75g pro : To be advanced to 300g dextrose, 105g AA, 55g lipids this afternoon providing 1990kcal, 105g protein, meeting 100% est.needs. LABS: Reviewed. Glu 201, electrolytes WNL, no new albumin MEDICATIONS: Reviewed. GI:+BM/flatus SKIN: No issues reported. ANTHROPOMETRICS: Current Wt: 75.6 kg, BMI 28.1 kg/m2. Admit weight: 73.9 kg, BMI: 27.0 kg/m2, IBW: 56.8 kg (130.15 IBW), UBW: 84.3 kg. ESTIMATED NEEDS Calories: 7970-5947 kcal/day (22-30 kcal/kg BW) Protein: 90-110 g/day (1.2-1.5 g/kg BW) Fluid: Approx 2220 mL (30 mL/kg BW) NUTRITION DIAGNOSIS: 1) Inadequate oral intake related to altered GI function, as evidenced by NPO status, requirement for TPN to build reserves for upcoming colectomy - PERSISTS. 2) Severe pro/kcal malnutrition related to altered GI function as evidence by 12.4% wt loss x1 month, PO intake less than 75% of estimated needs for more than 1 month and need for TPN. INTERVENTION: 1) Recommend continue to advance diet as tolerated. Impact advance recovery has been added to all trays. Will monitor for PO intake/tolerance 2) Spoke with pharmacist, TPN to be advanced to 300g dextrose, 105g AA, 55g lipids this afternoon providing 1990kcal, 105g protein, meeting 100% est.needs. MONITOR/EVALUATE: PO intake, diet advance/tolerance, TPN tolerance/advance, labs, GI/nutrition status. Follow per high nutrition risk guidelines.
--- NOTE | 2016-12-24 11:21 | PROG NOTE ---
[address] [address] PROGRESS NOTE PATIENT: YUNIER TRUJILLO : 1950 MR#: [id number] ADMIT: 12/16/2016 JOB ID: [id number] DATE: 12/24/2016 SUBJECTIVE: The patient is seen postoperative day three from a laparoscopic sigmoid colectomy, and postoperative day one from diagnostic laparoscopy. Yesterday, the patient had such a rapid decline in her condition that I was very concerned about the possibility of anastomotic leak. I therefore took her for a diagnostic laparoscopy. At surgery, there was no evidence of a leak. A leak test was negative. The only abnormal finding was that her right colon was quite distended, but there was no evidence of mechanical obstruction. I therefore washed out her pelvis, left a drain and an NG tube. This morning, she tells me she is feeling better. The biggest complaint is the NG tube, which she has had scant output. OBJECTIVE: She has remained afebrile. She was tachycardic initially, but now, this morning, her heart rate has normalized to 90s. Her blood pressure is 142/81. She has a respiratory rate of 16 breaths per minute, satting 96% on room air. In general, she appears much more comfortable than she did yesterday prior to surgery. Her abdomen is soft, not significantly tender. Her incisions look fine. Her WARNER drain has some scant serosanguineous output. Her NG tube has nothing out. LABORATORY DATA: Her white blood cell count has normalized to 9.1 from 11.5. Her hematocrit is down a little bit at 33.7. Her platelet count is 255. Creatinine 0.54. Her CRP is 6.1, which has a strong negative predictive value for anastomotic leak. ASSESSMENT AND PLAN: This is a 66-year-old woman who has been struggling with diverticulitis for quite some time, who is postoperative day three from a laparoscopic sigmoid colectomy, and postoperative day one from a diagnostic laparoscopy. The etiology of her rapid decline yesterday is a little unclear to me. She denies taking a significant amount of p.o. intake. She did not have of rapid decline in narcotic use to suggest opioid withdrawal. There is no evidence of a leak. Her symptoms have pretty much resolved, as well as her tachycardia and hypertension, suggesting that this is not of cardiac etiology or something like a pulmonary embolism. I think the castro is just to go very slow with her. I am going to keep her n.p.o., and have the pharmacist restart some IV fluids, along with her TPN. I encouraged her to get up and ambulate today, and we will have the Hooker come out.
--- NOTE | 2016-12-24 11:43 | PCM.PHAPRO ---
Progress Nausea, dehydration and hypokalemia. TPN per Pharmacy P: -Added a bag of 250ml NS to run until this bag hangs @ 2100 tonight -Increased fluids in TPN from 1800 to 2000mL -Mg at 1.8 today - increased amount in tonight's TPN -Adjusted additional electrolytes to compensate for increased total volume PARENTERAL NUTRITION ORDERS 8 - Standard Hang Time: 2100 Substrates Total kcal: 1989 AMINO ACIDS 105 g DEXTROSE 300 g Total Volume (mL): 2000 LIPIDS 55 g Sterile Water for Injection QS mL To Infuse Over (hrs): 24 Total Volume 2000 mL At at a rate of (mL/hr): 83 Additives Sodium Chloride 100 mEq "typical" daily requirements Sodium Acetate 40 mEq Sodium 50-120mEq Potassium Chloride 60 mEq Potassium 60-120mEq Potassium Phosphate 30 mEq Phosphate 20-40mEq Calcium Gluconate 14 mEq Magnesium 8-32mEq Magnesium Sulfate 20 mEq Calcium 9-22mEq Acetate* 80-120mEq Chloride* 80-120mEq Regular Insulin 0 units *Depending on acid-base status Famotidine 40 mg Multivitamins 1 std dose Insulin Regimen Trace Elements 1 std dose none Thiamine mg Regular Low Intensity Subcut X Folic Acid mg Regular Medium Intensity Subcut Ascorbic Acid mg Regular High Intensity Subcut Regular Insulin Infusion Other: Special Instructions: To be infused via central line only. For delay or inturruption of TPN contact the pharmacist for alternative replacement solution. Signature Date: 2005 [facility] Thank you! Jen Phelps PharmD December 24, 2016 11:43
[2016-12-24] MEDS: HYDROmorphone PCA 0.2 mg/mL 30 mL Inj - Over 64 Yrs/SA IV PRN (17:08)
--- NOTE | 2016-12-24 19:07 | NUR ---
Pain, Hooker Removal Patient states pain at a tolerable level with scheduled pain medication and HOSPITAL SUPERINTENDENT. Patient denies any nausea this shift, continues to NPO. Patient tolerating TPN well. Hooker catheter removed by student nurse per provider orders. Patient voiding without difficulty. Care is ongoing.
[2016-12-24] MEDS: Total Parenteral Nutrition 1 BAG IV SCH (21:54)
[2016-12-25] VITALS (14 sets, daily range): BP systolic 133–198; BP diastolic 83–116; PULSE 73–109; RESP 15–22; O2SAT 95–99
[2016-12-25] MEDS: Heparin 5,000 Unit/mL Inj SUBQ SCH ×3 (00:45→16:57)
[2016-12-25] MEDS: Piperacillin-Tazo 3.375 Gm Inj 3.375 GM in Dextrose 5% Minibag Plus 50 ML IV SCH ×3 (04:14→20:40)
[2016-12-25] MEDS: Ondansetron 2 mg/mL 2 mL Inj IVPUSH PRN ×3 (05:40→11:05)
[2016-12-25 06:39] LABS: Magnesium 1.8 mg/dL (1.6-2.6); Phosphorus 3.6 mg/dL (2.5-4.9)
--- NOTE | 2016-12-25 06:54 | NUR ---
ACTIVITY/PAIN/NAUSEA/ANXIETY: Pt. resting in bed most of the night. Was given 12.5 mg of IV Benadryl to help with sleep. Helpful. Has been up to the [facility] a few times tonight to void and pt."had the feeling she had to pass gas or have a BM" but no BM tonight, passing flatus. Pt. fell asleep and woke up in pain, then c/o nausea, no emesis. Given 8 mg of Zofran per her request. Given HARVEST WORKER bolus per her request. Pt. gets very anxious when in pain. Given cool wash cloth for forehead to help with nausea. Resting in bed at this time. Addendum: 12/25/16 at 0746 by FILIPPO FAN RN (NELLY) ADDENDUM: Pt. states she is very anxious and wants some Lorazepam. Paged technology adoption manager . New order for Lorazepam 0.5 mg IV Q 8hr prn for anxiety. Sent stat request to Pharmacy. Waiting for medication to show in omnicell and emar to give to pt. on going care.
--- NOTE | 2016-12-25 07:18 | PCM.PHAPRO ---
Progress TPN Management: -electrolytes have remained stable -Day 9 of TPN -Plan: formula for this evening: PARENTERAL NUTRITION ORDERS 25-Dec-16 Standard Hang Time: 2100 Substrates Total kcal: 1989 AMINO ACIDS 105 g DEXTROSE 300 g Total Volume (mL): 2000 LIPIDS 55 g Sterile Water for Injection QS mL To Infuse Over (hrs): 24 Total Volume 2000 mL At at a rate of (mL/hr): 83 Additives Sodium Chloride 100 mEq "typical" daily requirements Sodium Acetate 40 mEq Sodium 50-120mEq Potassium Chloride 40 mEq Potassium 60-120mEq Potassium Phosphate 30 mEq Phosphate 20-40mEq Calcium Gluconate 14 mEq Magnesium 8-32mEq Magnesium Sulfate 24 mEq Calcium 9-22mEq Acetate* 80-120mEq Chloride* 80-120mEq Regular Insulin 0 units *Depending on acid-base status Famotidine 40 mg Multivitamins 1 std dose Insulin Regimen Trace Elements 1 std dose none Thiamine mg Regular Low Intensity Subcut X Folic Acid mg Regular Medium Intensity Subcut Ascorbic Acid mg Regular High Intensity Subcut Regular Insulin Infusion Other: Milil Gaytan [facility] December 25, 2016 07:18
--- NOTE | 2016-12-25 09:20 | PROG NOTE ---
[address] [address] PROGRESS NOTE PATIENT: YUNIER TRUJILLO : 1950 MR#: [id number] ADMIT: 12/16/2016 JOB ID: [id number] DATE: 12/25/2016 SUBJECTIVE: The patient is seen postoperative day four from her sigmoid colectomy. The patient seems to alternate between feeling good and having terrible pain, nausea and vomiting. It seems that she is gets behind on pain control overnight and then feels lousy. She then had associated hypertension symptoms and tachycardia. She has not had any more bowel function since her diagnostic laparoscopy. OBJECTIVE: She has remained afebrile. Her heart rates remained in the 70s and 80s. This morning, her blood pressure is a little high at 182/103. In general, she appears mildly uncomfortable but in no acute distress. Her abdomen is soft, not significantly tender. Her incisions are clean, dry and intact. Her WARNER drain has some scant serosanguineous output. Over the last 24 hours she put out and additional 30 overnight. ASSESSMENT AND PLAN: This is a 66-year-old female, postoperative day four from laparoscopic sigmoid colectomy for sigmoid diverticulitis. It seems that the patient's nausea, vomiting and her tachycardia and hypertension all really related to pain. At this point, she is not having any bowel function, so we will continue on the COTTON BAG SEWER. Also continue TPN. I encouraged her to get up and ambulate.
[2016-12-25] MEDS: Insulin REGULAR SS Low-Dose SUBQ PRN ×2 (12:11→18:09)
[2016-12-25] MEDS ORDERED: HYDROmorphone PCA 0.2 mg/mL 30 mL Inj - Over 64 Yrs/SA IV PRN ×2 (13:05→13:20)
[2016-12-25] MEDS: HYDROMORPHONE IV PRN (14:27)
--- NOTE | 2016-12-25 19:20 | NUR ---
Pain, Blood Pressure Patient had increased pain and blood pressure this shift. MD made aware, orders for increased pain medication received and initiated. Patient reports decrease in pain, states she is feeling "fine, no pain or nausea". Patient blood pressure decreasing. Care is ongoing.
[2016-12-25] MEDS: Total Parenteral Nutrition 1 BAG IV SCH (21:39)
[2016-12-26] VITALS (7 sets, daily range): BP systolic 100–128; BP diastolic 66–78; PULSE 88–99; RESP 14–18; O2SAT 94–98
[2016-12-26] MEDS: Heparin 5,000 Unit/mL Inj SUBQ SCH ×3 (00:19→16:11)
[2016-12-26] MEDS: Insulin REGULAR SS Low-Dose SUBQ PRN ×3 (00:30→16:13)
[2016-12-26] MEDS: HYDROMORPHONE IV PRN ×3 (00:35→22:02)
--- NOTE | 2016-12-26 01:30 | NUR ---
ACTIVITY: Encouraged pt. to ambulate, she got up and ambulated on the hallway before HS, was up independently. Tolerated activity well. States her pain is well controlled with DYNAMICS AX DEVELOPER Dilaudid with the cotinues basel. Her anxiety is also controlled with 0.5 mg of Lorazepam prn. Wants to be awaken every 6 hr to take the Lorazepam. BP within normal limits. Has been resting well, calmed and no pain. Denies n/v. Passing flatus, denies BM. EQ=540,given 1 unit of insulin. Resting comfortably through the night. On going care.
[2016-12-26] MEDS: Piperacillin-Tazo 3.375 Gm Inj 3.375 GM in Dextrose 5% Minibag Plus 50 ML IV SCH ×3 (04:20→20:14)
[2016-12-26 05:37] LABS: Magnesium 2.2 mg/dL (1.6-2.6); Phosphorus 5.5 mg/dL (2.5-4.9)
--- NOTE | 2016-12-26 06:49 | PCM.PHAPRO ---
Progress TPN Management by Pharmacy: -Day 10 of TPN -pt is at goal macronutrients -phosphorous level jumped to 5.5 from 3.6 yesterday -other electrolytes have remained stable -Plan: will leave [facility] out of TPN today. formula for this evening: PARENTERAL NUTRITION ORDERS 26-Dec-16 Standard Hang Time: 2100 Substrates Total kcal: 1989 AMINO ACIDS 105 g DEXTROSE 300 g Total Volume (mL): 2000 LIPIDS 55 g Sterile Water for Injection QS mL To Infuse Over (hrs): 24 Total Volume 2000 mL At at a rate of (mL/hr): 83 Additives Sodium Chloride 100 mEq "typical" daily requirements Sodium Acetate 40 mEq Sodium 50-120mEq Potassium Chloride 80 mEq Potassium 60-120mEq Potassium Phosphate mEq Phosphate 20-40mEq Calcium Gluconate 14 mEq Magnesium 8-32mEq Magnesium Sulfate 18 mEq Calcium 9-22mEq Acetate* 80-120mEq Chloride* 80-120mEq Regular Insulin 0 units *Depending on acid-base status Famotidine 40 mg Multivitamins 1 std dose Insulin Regimen Trace Elements 1 std dose none Thiamine mg Regular Low Intensity Subcut X Folic Acid mg Regular Medium Intensity Subcut Ascorbic Acid mg Regular High Intensity Subcut Regular Insulin Infusion Other: Milli Gaytan [facility] December 26, 2016 06:49
--- NOTE | 2016-12-26 09:28 | PROG NOTE ---
[address] [address] PROGRESS NOTE PATIENT: ALICIA TRUJILLO : 1950 MR#: [id number] ADMIT: 12/16/2016 JOB ID: [id number] DATE: 12/26/2016 SUBJECTIVE: The patient is seen in followup for her laparoscopic sigmoid colectomy. Yesterday I started a basal rate on the WAREHOUSE TEAM LEADER. Alicia has been far more comfortable since then. She tells me she finally a good night sleep. She had a number of well-formed bowel movements. Her pain is well controlled. OBJECTIVE: She has remained afebrile. Overnight, she was hemodynamically normal this morning with a heart rate of 93, blood pressure 104/66. This morning she appears alert, oriented, and very comfortable. Her incision is inspected and clean, dry, and intact. Her WARNER drain had scant serous output and therefore was removed. ASSESSMENT AND PLAN: This is a 66-year-old female status post laparoscopic sigmoid colectomy on Tuesday followed take back to the operating room for concern of anastomotic leak on which proved negative who is improving. It seems really that all her physiologic signs of tachycardia, hypertension were related pain. Now that her pain is well controlled she is doing much better. She is starting to have some return of bowel function. She can have a full liquid diet today, but I caution her to go slow. The WARNER drain was removed. If she does well through the day and continues to have good bowel function. I will plan on transition to oral medications tomorrow.
--- NOTE | 2016-12-26 12:34 | NUR ---
Social Work: Readiness for Discharge D: EMR reviewed. Pt is on day 10 of hospitalization. Per RN notes, pt has been up ambulating in room. Per ID, pt is tolerating pain much better and "finally had a good nights sleep." ID may move pt to POABX 12/27. Pt to transport home via POV when medically stable. SW does not anticipate any discharge needs at this time but will continue to follow if needs arise. A: Pt who is independent at baseline. P: Pt to return home via POV when medically stable. SW does not anticipate any discharge needs at this time but will continue to follow if needs arise. MINAL Munoz
[2016-12-26] MEDS ORDERED: 0.9% Sodium Chloride 250 ML ONE (17:15)
--- NOTE | 2016-12-26 18:14 | NUR ---
Pain/Activity Pt states pain is well controlled with the CORRECTION OFFICER REFORMATORY basal. rates pain 2/10. States tomorrow she would like to wean off CORRECTION OFFICER REFORMATORY to oral pain meds. Also states that the ativan is working well. Was advanced to full liquid diet and has taken it very slow. Tolerated applesauce and jello. no nausea reported. Pt ambulated in the hallway TID. Hypoactive BTs but is passing gas and had BM x3 today. Did refuse dinner insulin of 1 unit for 142. Care conts
[2016-12-26] MEDS: Total Parenteral Nutrition 1 BAG IV SCH (21:30)
[2016-12-27] VITALS (9 sets, daily range): BP systolic 111–154; BP diastolic 66–83; PULSE 82–91; RESP 15–18; O2SAT 95–99
[2016-12-27] MEDS: Heparin 5,000 Unit/mL Inj SUBQ SCH ×3 (00:31→17:02)
[2016-12-27] MEDS: Piperacillin-Tazo 3.375 Gm Inj 3.375 GM in Dextrose 5% Minibag Plus 50 ML IV SCH (04:46)
[2016-12-27 06:34] LABS: Magnesium 1.8 mg/dL (1.6-2.6); Phosphorus 3.6 mg/dL (2.5-4.9)
--- NOTE | 2016-12-27 06:59 | PCM.PHAPRO ---
Progress TPN Management: -Day 11 of TPN s/p sigmoid colectomy -electrolytes have remained stable -macronutrients at goal -Plan: formula for this evening: PARENTERAL NUTRITION ORDERS 06 29- Standard Hang Time: 2100 Substrates Total kcal: 1990 AMINO ACIDS 105 g DEXTROSE 300 g Total Volume (mL): 2000 LIPIDS 55 g Sterile Water for Injection QS mL To Infuse Over (hrs): 24 Total Volume 2000 mL At at a rate of (mL/hr): 83 Additives Sodium Chloride 100 mEq "typical" daily requirements Sodium Acetate 40 mEq Sodium 50-120mEq Potassium Chloride 40 mEq Potassium 60-120mEq Potassium Phosphate 10 mEq Phosphate 20-40mEq Calcium Gluconate 14 mEq Magnesium 8-32mEq Magnesium Sulfate 22 mEq Calcium 9-22mEq Acetate* 80-120mEq Chloride* 80-120mEq Regular Insulin 0 units *Depending on acid-base status Famotidine 40 mg Multivitamins 1 std dose Insulin Regimen Trace Elements 1 std dose none Thiamine mg Regular Low Intensity Subcut X Folic Acid mg Regular Medium Intensity Subcut Ascorbic Acid mg Regular High Intensity Subcut Regular Insulin Infusion Other: Milli Gaytan [facility] December 27, 2016 06:59
[2016-12-27] MEDS: HYDROMORPHONE IV PRN (08:59)
--- NOTE | 2016-12-27 10:43 | PROG NOTE ---
[address] [address] PROGRESS NOTE PATIENT: YUNIER TRUJILLO : 1950 MR#: [id number] ADMIT: 12/16/2016 JOB ID: [id number] DATE: 12/27/2016 SUBJECTIVE: The patient is seen in followup for her recent laparoscopic sigmoid colectomy for diverticulitis. The patient tells me she feels great this morning. She has had good pain control with the PATCHER BOWLING BALL with continuous hydromorphone infusion. She has had a number of bowel movements. She has been tolerating a full liquid diet. OBJECTIVE: She has remained afebrile and hemodynamically normal over the last 24 hours. This morning her heart rate 86 and blood pressure is 117/69. She is up in a chair. She appears comfortable. Her incisions look fine. ASSESSMENT AND PLAN: This is a 66-year-old woman who is 6 days out from a laparoscopic sigmoid colectomy for a sigmoid diverticulitis overall doing well. Today I am going to transition her to a soft diet. Also going to try and transition to oral pain medications. She has been on a very high dose of IV hydromorphone. Discussed appropriate dosing with the pharmacist, and I am going to start at 4-8 mg every 4 hours oral hydromorphone. This is not quite as much as she has been receiving IV and may need to escalate that a little bit. I am also going to switch her Ativan to oral dose. Also I will stop the IV fluids. If she does well today, then I anticipate she would go home tomorrow.
[2016-12-27] MEDS: LORazepam 0.5 mg Tablet PO PRN ×2 (11:40→19:28)
--- NOTE | 2016-12-27 18:15 | NUR ---
HOEING ROW BOSS, TPN DC, Oral Pain Transition TPN and HOEING ROW BOSS DC'd this shift per physician orders. Patient transitioned to oral pain meds, patient states ordered medications keep pain within a tolerable level. Diet advanced per orders, patient tolerating soft diet well. Patient walking halls x2 this shift. Care is ongoing.
[2016-12-28] MEDS: Heparin 5,000 Unit/mL Inj SUBQ SCH ×2 (00:38→10:28)
--- NOTE | 2016-12-28 03:47 | NUR ---
Activity/Pain Pt ambulated in hallway before getting into bed, independent and steady on feet. Pt reported abdominal pain up to 11/08 but is reporting good control taking PO Dilaudid 8mg q4 hrs. Pt took Ativan for anxiety at bedtime and reported relief and was able to get some sleep. Pt continues to pass gas and denies nausea overnight.
[2016-12-28 04:30] VITALS: BP 137/80; PULSE 78; RESP 16; O2SAT 96
[2016-12-28] MEDS: LORazepam 0.5 mg Tablet PO PRN ×2 (04:33→12:19)
--- NOTE | 2016-12-28 05:29 | NUR ---
Diaphoresis/dietary Pt reporting diaphoresis overnight, temp checked and it was 99 degrees. This morning temp back down to 98 degrees. Pt also would like to be able to meet with dietary today to go over her diet before discharge.
--- NOTE | 2016-12-28 10:26 | NUR ---
NUTRITION FOLLOW-UP/DIET CONSULT: ASSESS: 66 YO F admitted with severe diverticulitis,s/p sigmoid colectomy. RN requesting consult re diet education s/p surgery. Pt very pleasant, interested in learning re appropriate foods to eat after colectomy. Pt with poor PO intake for at least a week and a half prior to admit. She has been sustaining herself on Jell-O on ice chips. She has lost 22.88 pounds (10.4 kg) x 1 month = 12.34% = significant weight loss. Pt is post-op day 1 for lap colectomy. PO has been sips. PMHx: Abdominal pain, diverticulitis, recent shingles, recent hyperkalemia. DIET: Soft. TPN: Discontinued LABS: Reviewed. Glu 201, electrolytes WNL, no new albumin MEDICATIONS: Reviewed. GI:+BM/flatus SKIN: No issues reported. ANTHROPOMETRICS: Current Wt: 75.1 kg, BMI 28.1 kg/m2. Admit weight: 73.9 kg, BMI: 27.0 kg/m2, IBW: 56.8 kg (130.15 IBW), UBW: 84.3 kg. ESTIMATED NEEDS Calories: 5421-1707 kcal/day (22-30 kcal/kg BW) Protein: 90-110 g/day (1.2-1.5 g/kg BW) Fluid: Approx 2220 mL (30 mL/kg BW) NUTRITION DIAGNOSIS: 1) Inadequate oral intake related to altered GI function, as evidenced by NPO status, requirement for TPN to build reserves for upcoming colectomy - IMPROVING. Diet now advanced with good oral intake. 2) Severe pro/kcal malnutrition related to altered GI function as evidence by 12.4% wt loss x1 month, PO intake less than 75% of estimated needs for more than 1 month and need for TPN.---IMPROVED. Pt diet advanced, well tolerated, TPN discontinued. INTERVENTION: 1) Spoke with pt re diet recommendations s/p colectomy. No questions. Hdts provided. MONITOR/EVALUATE: PO intake, diet advance/tolerance, labs, GI/nutrition status. Follow per moderate nutrition risk guidelines.
--- NOTE | 2016-12-28 14:21 | PCM.DISURG ---
Surgical Discharge Instruction Date of Service December 28, 2016 Dates of Hospitalization Date of Hospital Admission December 16, 2016 at 17:50 Providers Admitting Physician: Sachin Marcus MD Primary Care Physician: Other,Physician Attending Physician: Sachin Marcus MD Discharge Diagnosis Discharge Diagnosis diverticulitis. Post Operative diagnosis Same Diet Discharge Diet: No restrictions Activity Discharge Activity-General: Try not to overdue, Balance rest and activity, No lifting >15 pounds for 2 weeks, No driving while taking narcotic, May drive in ( approximately 2 weeks unless still taking narcotics.) Dressing and Incisional Care Dressing Care: Allow Steri Stripes to fall off Hygiene: May shower, DO NOT soak incision under water, NO bathtub, hot tub or whirlpool Additional Instructions Discharge Instructions Taper hydromorphone by 6mg each day. 48 mg day 1 is 2 pills every 4 hours. Next day reduce by 3 pills. Do this each day until day 10 when you will be essentially complete with the prescription. Taper lorazepam as follows: take 1 pill ever 8 hours for first 4 days then remainder to be taken at bedtime only. 1 pill at bedtime. Additional Instructions Obtain miralax at discharge and follow instructions on container. Follow Up Plan Follow Up Plan we will be tapering down your dilaudid and ativan over the next 10 days. Follow-up Provider (F9): Sachin Marcus MD Follow-up appointment: John (1) Axel Rodriguez PA-C December 28, 2016 14:21
--- NOTE | 2016-12-28 14:27 | PCM.PNSURG ---
Subjective Date of Service: December 28, 2016 Date of Service: December 28, 2016 Visit Information: Reason for Visit Diverticulitis Surgery/Surgery Date Post-Op Day # Date of Admission: December 16, 2016 at 17:50 Hospital Day # Subjective: patient seen today and denies significant pain. Hoping to go home today. Denies nausea and vomiting. Tolerating soft diet. Postop General: No Shortness of Breath, No Chest Pain Gastrointestinal: Tolerating Oral Feedings, No N/V Pain Management: PO (dilaudid) Postop Activity: Ambulating Independently Objective Intake and Output- Last 8 Hour 12/28/16 Cumulative From/Thru 07:00 12/16/16 13:53 - 12/28/16 05:59 Intake Total 150 ml 08043 ml Output Total 300 ml 11356 ml Balance -150 ml 4802 ml Intake Oral 150 ml 7946 ml IV Total 82881 ml TPN/PPN 97254 ml Output Urine Total 300 ml 72027 ml Stool Total 550 ml Urine/Stool Mix 2250 ml Gastric Drainage Total 0 ml Emesis 3 ml Drainage Total 150 ml Estimated Blood Loss 3 ml # Voids 4 # Bowel Movements 0 12 General: Alert, Oriented X3 Neck: Supple Lungs: Clear to Auscultation Heart: Exam Unremarkable Abdomen: Soft, Appropriately tender, Normoactive bowel tones SURGICAL WOUND : Wound General Appearence: Steri Strips, Well Approximated Dressing & Drainage Status: Intact, No Purulent Drainage, No Odor Result Diagram: 12/24/16 0400 12/28/16 0440 Assessment & Plan Impression Satisfactory post operative course from laparoscopic sigmoid colectomy Some anxiety persists associated with abdominal pain from surgery requiring continued hydromorphone Problems: Plan Will d/c picc discharge home with 10 day taper of dilaudid and ativan follow up [address] Sachin Marcus in General Surgery office. Regular diet Balance rest and activity Pain Management: 10 day taper of dilaudid and ativan VTE Prophylaxis: Sub-Q Heparin (Unfractionated) Resuscitation Status: CPR: Attempt Resuscitation Axel Rodriguez PA-C December 28, 2016 14:27
[2016-12-28 14:36] VITALS: BP 158/82; PULSE 85; RESP 14; O2SAT 95
[2016-12-28] MEDS ORDERED: LORA0.5T PO (14:43)
[2016-12-28] MEDS ORDERED: HYDR4TAB PO (14:43)
--- NOTE | 2016-12-28 15:08 | NUR ---
Social Work: Discharge D: EMR reviewed. Pt is on day 12 of hospitalization. Pt to discharge today. Per RN notes, pt has been up ambulating in room. Pt's diet has been advanced. SW met with pt in room regarding discharge plan. Pt agreeable to discharge. Pt denied any questions or concerns related to discharge. Pt to transport home with daughter via POV when medically stable. No discharge needs identified at this time. A: Pt who is independent at baseline. P: Pt to return home with daughter via POV when medically stable. No discharge needs identified at this time. Mariza Benavides, SECURITY SALES CONSULTANT
--- NOTE | 2016-12-28 15:49 | NUR ---
DISCHARGE Patient's abdominal pain has been well controlled with PO dilaudid 8mg. Patient states pain is up to a 3/10 after 4 hrs of administration and that she is just starting to feel more uncomfortable. Has been ambulating in room to bathroom independently and without any problem. BT's present, passing flatus and formed stool. Patient verbalizes that she is ready to go home today. Reviewed discharge paperwork with patient, including need to taper down on amount of dilaudid over next 7-10 days. Patient aware of follow up appointment that needs to be made with Dr. Marcus in 1 week. PICC line removed by IV therapy. Patient left with all belongings and ride home with a friend.
--- NOTE | 2016-12-29 15:00 | PCM.DC.SUR ---
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 That time she was admitted for abdominal pain and found to have sigmoid diverticulitis. She was treated with IV antibiotics and went home on the . A second CT scan was obtained shortly thereafter which indicated an increased peridiverticular abscess. She canceled a trip to [place] for that reason. She has been on oral antibiotics, Augmentin since the initial discharge. On December 03 at worksheet increased pain leading to evaluation with CT scan which revealed resolution of the abscess but persistent diverticulitis. Oral Flagyl was added to her regimen. Because of her persistent diverticulitis planning for a surgical intervention ensued. She was scheduled for a sigmoid colectomy on January [address] Parsons at [facility]. However the patient's been having a lot of nausea and vomiting with her Flagyl. On December 06 she developed shingles and was noted to have hypokalemia. She was started on potassium and acyclovir and continued use oxycodone. This did lead to anorexia. The anorexia is no progressive. She has had a lot of early satiety and nausea and some vomiting now for at least a week and a half. She has been sustaining himself on Jell-O on ice chips. She has had increased pain right left lower quadrant and a feeling of pressure. She has been vomiting for last 5 days. She has had loose bowel movements free of blood or mucus. She has lost 15 pounds. post operative physical exam: patient seen today and denies significant pain. Hoping to go home today. Denies nausea and vomiting. Tolerating soft diet. Postop General: No Shortness of Breath, No Chest Pain Gastrointestinal: Tolerating Oral Feedings, No N/V Pain Management: PO (dilaudid) Postop Activity: Ambulating Independently Intake and Output- Last 8 Hour 12/28/16 Cumulative From/Thru 07:00 12/16/16 13:53 - 12/28/16 05:59 Intake Total 150 ml 58014 ml Output Total 300 ml 96858 ml Balance -150 ml 4802 ml Intake Oral 150 ml 7946 ml IV Total 25268 ml TPN/PPN 74348 ml Output Urine Total 300 ml 46326 ml Stool Total 550 ml Urine/Stool Mix 2250 ml Gastric Drainage Total 0 ml Emesis 3 ml Drainage Total 150 ml Estimated Blood Loss 3 ml # Voids 4 # Bowel Movements 0 12 General: Alert, Oriented X3 Neck: Supple Lungs: Clear to Auscultation Heart: Exam Unremarkable Abdomen: Soft, Appropriately tender, Normoactive bowel tones SURGICAL WOUND : Wound General Appearence: Steri Strips, Well Approximated Dressing & Drainage Status: Intact, No Purulent Drainage, No Odor Result Diagram: 12/24/16 0400 12/28/16 0440 Consultants: Hospitalists Hospital Course: The patient was admitted for care of diverticulitis requiring a laparoscopic sigmoid colectomy. Her early hospital course was complicated by nausea, vomiting and hypokalemia which was present at the time of admit. The patient remained in the hospital for 5 days while receiving tpn, and correcting electrolyte abnormalities and minimizing nausea and abdominal pain. On hospital day #6, the patient was deemed stable enough to undergo laparoscopic sigmoid colectomy and was taken to the operating room for this procedure. Please see operative notes for details of the procedure. She tolerated the procedure well and was transferred to her hospital room where she remained for the balance of her hospital stay. Over the next two postoperative days, she did very until she started passing flatus, had a bowel movement and then suddenly became tachycardic and hypertensive with tremendous abdominal pain. She was noted to have a leukocytosis and the decision was made to take her back for a diagnostic laparoscopy. Please see operative notes for details of this procedure. She tolerated the second procedure well and no anastomotic leak was found. The only abnormal finding was that her right colon was quite distended, but there was no evidence of mechanical obstruction. TPN was continued and plans were put into effect to move slowly in restarting oral feedings. Postoperative abdominal pain remained a moderately significant issue requiring prolonged STICKER MACHINE OPERATOR utilization and upon discontinuation of the STICKER MACHINE OPERATOR, relatively high dose hydromorphone and lorazepam for pain and anxiety issues. It was seen that once her pain was adequately controlled her course postoperatively went much better. She began to tolerate an oral diet and was noted to have bowel movements. She was then discharged to home with oral hydromorphone and lorazepam tapers over 10 days. Pathology: sigmoid colon-- pathology pending Disposition: Home Follow-up Plan: Follow up with Dr. Sachin Marcus in 1 week. 10 day taper of hydromorphone beginning 8mg every 4 hours dropping to 0 over 10 days. 10 day taper of lorazepam beginning with 1/2mg every 8 hours continuing for 4 days then decreasing to 1/2mg prn at bedtime until complete. Cholecalciferol (Vitamin D3) (Vitamin D3) 5,000 Unit Capsule 5,000 UNIT PO DAILY (Reported) Hydromorphone (Hydromorphone) 4 Mg Tablet 4-8 MG PO Q4H PRN PRN Pain Lactobacillus Combo No.11 (Probiotic) 1 Each Cap.sprink 1 EACH PO BID (Reported ) Lorazepam (Lorazepam) 0.5 Mg Tablet 0.5 MG PO TID PRN PRN For Anxiety Axel Rodriguez PA-C December 29, 2016 15:00
== END 2016-12-28 15:47 | disposition home or self-care (01) | DRG 330 ==
LOC: EDUNIT# 13:37 → SED 13:58 → PCC 17:50 → OSC 12-22 20:42
PROVIDERS: ADMIT General Practice; ATTEND Hospitalist
PROC: 0DTN4ZZ Resection of Sigmoid Colon, Percutaneous Endoscopic Approach (ICD-10-PCS; principal; 2016-12-20)
PROC: 0WJP4ZZ Inspection of Gastrointestinal Tract, Percutaneous Endoscopic Approach (ICD-10-PCS; 2016-12-23)
DX: K57.20 Diverticulitis of large intestine with perforation and abscess without bleeding (principal); K56.7 Ileus, unspecified; E87.6 Hypokalemia; R11.2 Nausea with vomiting, unspecified; E83.42 Hypomagnesemia; I10 Essential (primary) hypertension; E86.0 Dehydration

== ENCOUNTER 2017-01-14 11:02 | Emergency (ER) | payer OTHER, MEDICARE ==
[~2017-01-14 11:02] MED LIST changes: -AMOX-366 PO; -AMOX500C2 PO; -HYDR-4003 PO; +HYDR4TAB PO; +LORA0.5T PO; -METR500T PO; -OMEG1600 PO; -ONDA4TAB12 PO; -OXYC-474 PO; -OXYC5TAB72 PO; -POTA10CA42 PO; -QUE9 PO
--- NOTE | 2017-01-14 11:08 | ED.REPORT ---
HPI-Abd Pain F 40 and Over Date of Service Jan 14, 2017 ED Provider: History of Present Illness: surgery 2 weeks ago for divertisulitis surgery successful. current pain started yesterday am. pain has increased today vomiting, no diarrhea. feels she may be constipated. alla is primary care at the [facility]. had surgery followed by dr. chapman. pain is in the abdominal area last dose of ativan yesterday per her report patient hyperventitaliting Nursing Notes Stated Complaint: GENERAL Nursing Notes Reviewed: Yes Allergies: Coded Allergies: ciprofloxacin (Verified Allergy, Unknown, Rash, 11/14/16) metronidazole (Verified Allergy, Unknown, 12/03/16) Scheduled Cholecalciferol (Vitamin D3) (Vitamin D3) 5,000 Unit Capsule 5,000 UNIT PO DAILY Lactobacillus Combo No.11 (Probiotic) 1 Each Cap.sprink 1 EACH PO BID Scheduled PRN Hydromorphone (Hydromorphone) 4 Mg Tablet 4-8 MG PO Q4H PRN PRN Pain Lorazepam (Lorazepam) 0.5 Mg Tablet 0.5 MG PO TID PRN PRN For Anxiety General Time Seen by MD: 11:07 Chief Complaint Abdominal pain Hx Obtained From: Patient Sudden in Onset?: No Symptom Duration: Since onset Location: : Diffuse Severity: Current: Pain level 10 out of 10 Past Medical History Past Medical History Notes: Admit for diverticulitis October 2016, recent ED visit for continued diverticulitis December 03 Past Medical History Diverticulitis Hx of shingles Reports: Hypertension Past Surgical History surgery for divertilitis Reports: Cholecystectomy Family History Noncontributory Smoking History Never Smoker Social History Alcohol Use: 1-3 per day Drug Use: Denies drug use Other Social History: Good social support, Local resident Occupation lives with daughter 2 [facility] 01/14/2017 Ambulatory Status Independent Review of Systems Basic Review of Systems Eyes: Vision NL, No discharge Neurologic: NL mental status, No weakness, No numbness Psychiatric: Normal thought content Physical Exam Vital Signs Vital Signs (First) Date Time Temp Pulse Resp B/P Pulse Ox O2 Delivery O2 Flow Rate FiO2 01/14/17 11:10 35.9 92 30 196/112 98 Initial VS: Reviewed, Vital signs abnormal Head / Eyes: Atraumatic, Normocephalic, PERRL ENT: Mucous membranes moist, Conjunctiva normal, No scleral icterus Neck: Supple, Non-tender, Full range of motion Lymphatic: No lymphadenopathy Extremities: Vascular intact, Neuro intact, No swelling, No tenderness Skin: Warm, Dry, No cyanosis Neurologic: Alert, Oriented, Nonfocal Psychiatric: Mood/affect normal, Behavior normal, Normal thought content General/Constitutional: Awake, Alert, No acute distress, Well appearing, Well developed, Well hydrated Respiratory / Chest: Atraumatic, Breath sounds NL, Breath sounds = bilat Cardiovascular: Heart rate NL, Regular rhythm, Heart sounds NL Abdomen: Atraumatic, Soft, Non-tender, McBurney's non-tender Back: Atraumatic, Inspection NL, Full range of motion, Painless range of motion Interpretation & Diagnostics Lab Results Interpretation Result Diagram: 01/14/17 1115 01/14/17 1115 Test 01/14/17 11:15 White Blood Count 7.7th/mm3 (3.8-10.1) Red Blood Count 4.59mil/mm3 (3.90-5.20) Hemoglobin 13.3g/dL (12.0-15.6) Hematocrit 39.2% (35.0-46.0) Mean Corpuscular Volume 85.4fL (81-100) Mean Corpuscular Hemoglobin 29.0pg (27.0-35.0) Mean Corpuscular Hemoglobin Concent 33.9% (32.0-37.0) Red Cell Distribution Width 14.6% (12.3-15.4) Platelet Count 273bil/L (150-400) Neutrophils (%) (Auto) 39.6% (40-74) Lymphocytes (%) (Auto) 50.5% (14-46) Monocytes (%) (Auto) 8.9% (4-12) Eosinophils (%) (Auto) 0.8% (0-5) Basophils (%) (Auto) 0.1% (0-3) Hold Blue Top Tube Received (Received) Sodium Level 144mEq/L (134-144) Potassium Level 3.7mEq/L (3.5-5.2) Chloride Level 102mEq/L (97-108) Carbon Dioxide Level 18mmol/L (18-29) Blood Urea Nitrogen 8mg/dL (8-27) Creatinine 0.69mg/dL (0.57-1.00) Estimat Glomerular Filtration Rate 122mL/min (>59) Glucose Level 123mg/dL (60-99) Lactic Acid Level 2.8mmol/L (0.4-2.0) Calcium Level 9.9mg/dL (8.5-10.1) Total Bilirubin 0.6mg/dL (0.0-1.2) Aspartate Amino Transf (AST/SGOT) 42U/L (0-50) Alanine Aminotransferase (ALT/SGPT) 36U/L (0-32) Alkaline Phosphatase 98U/L (25-165) Troponin T < 0.010ug/L (0.0-0.011) Total Protein 7.6g/dL (6.4-8.4) Albumin 4.3g/dL (3.4-5.0) Hold Red Top Tube Received (Received) X-Ray Abdominal Interpretation PROCEDURE: X-RAY ACUTE ABDOMINAL SERIES ([id number]) INDICATIONS: abdominal pain TECHNIQUE: One view chest and two views of the abdomen were acquired. COMPARISON: [facility], CT, CT ABD PELVIS W CON, 12/16/2016, 15:23. FINDINGS: Surgical changes and devices: Clips within the right upper quadrant may be related to previous cholecystectomy. Chest: Lungs are clear. Heart size is normal. No pleural effusions. No pneumoperitoneum. Abdomen: Bowel gas pattern is normal. An irregular calcification is seen within the left lower abdomen adjacent to the 5th left transverse process, which is not evident on the abdomen and pelvis CT dated 12/16/16, suggesting high attenuation material within the bowel. Visualized solid organ contours appear normal. Bones: No suspicious bony lesions. Multilevel degenerative changes of the thoracolumbar spine and bilateral hips are present. IMPRESSION: 1. No bowel obstruction. 2. Negative chest. Dictated by: Fredi Archibald M.D. on 01/14/2017 at 12:05 Approved by: Fredi Archibald M.D. on 01/14/2017 at 12:07 CT Abd / Pelvis Interpretation PROCEDURE: X-RAY ACUTE ABDOMINAL SERIES ([id number]) INDICATIONS: abdominal pain TECHNIQUE: One view chest and two views of the abdomen were acquired. COMPARISON: [facility], CT, CT ABD PELVIS W CON, 12/16/2016, 15:23. FINDINGS: Surgical changes and devices: Clips within the right upper quadrant may be related to previous cholecystectomy. Chest: Lungs are clear. Heart size is normal. No pleural effusions. No pneumoperitoneum. Abdomen: Bowel gas pattern is normal. An irregular calcification is seen within the left lower abdomen adjacent to the 5th left transverse process, which is not evident on the abdomen and pelvis CT dated 12/16/16, suggesting high attenuation material within the bowel. Visualized solid organ contours appear normal. Bones: No suspicious bony lesions. Multilevel degenerative changes of the thoracolumbar spine and bilateral hips are present. IMPRESSION: 1. No bowel obstruction. 2. Negative chest. Dictated by: Fredi Archibald M.D. on 01/14/2017 at 12:05 Approved by: Fredi Archibald M.D. on 01/14/2017 at 12:07 Re-Eval/Medical Decision Med Decision/Clinical Course 66 year old female presents to the ER for evualation of abd pain with vomiting. Patient reports surgery 2 weeks ago. Pain started yesterday with increasing today. Patient initially presents very anxious with hyperventatiling. No sign of SBO or henia. Patient with excellent response to the dosing of ativan. Primary care does provide a prescription for additional ativan. Discussed with patient risks and benefits of this medication Discharge & Departure Primary Impression: Abdominal pain Abdominal location: generalized Qualified Code: R10.84 - Generalized abdominal pain Additional Impressions: Elevated blood pressure reading Anxiety Disposition: Home Patient Instructions: Acute Abdominal Pain (ED), Anxiety (ED), High Fiber Diet (ED) Additional Instructions: Your labs are normal. The x-ray is normal. The CT looks good. Your urine looks beautiful but it is being dipped. You are greatly improved from when you first arrived. Use visteral 25 mg 1 to 2 up to 3 times a day as needed for anxiety. Try to use the ativan only as needed. Stop the dilaulid and start percocet, 1 up to 2 times a day for 5 days then 1 a day for 5 days. Please keep all appointments as scheduled. Please follow with Dr. Johnson next week. Return with any concerns. You can use 1/2 bottle of magnesium citrate for stool passage. Increase fiber, use foods from the high fiber list. Your blood pressure is elevated. You may benefit from taking something . Please discuss with Dr. Johnson at your next office visit. Referrals: OTHER,PHYSICIAN (PCP) EDSupervising Provider for APC: Dez Up MD copies to: OTHER,PHYSICIAN Laxmi Santos Jan 14, 2017 11:08
[2017-01-14 11:10] VITALS: BP 196/112; PULSE 92; RESP 30; O2SAT 98
[2017-01-14] MEDS ORDERED: HYDROmorphone 0.5 mg/0.5 mL iSecure Syringe IVPUSH PRN (11:15)
[2017-01-14] MEDS ORDERED: Ondansetron 2 mg/mL 2 mL Inj IVPUSH ONE (11:15)
[2017-01-14] MEDS ORDERED: 0.9% Sodium Chloride 1,000 ML IV ONE ×2 (11:20→12:30)
[2017-01-14 11:52] LABS: BASOPHILS % (AUTO) 0.1 % (0-3); EOSINOPHILS % (AUTO) 0.8 % (0-5); MONOCYTES % (AUTO) 8.9 % (4-12); Mean Corpuscular Volume 85.4 fL (81-100); NEUTROPHILS % (AUTO) 39.6 % (40-74); Platelet Count 273 bil/L (150-400)
--- NOTE | 2017-01-14 12:08 | DRSVH ---
PROCEDURE: X-RAY ACUTE ABDOMINAL SERIES ([id number]) INDICATIONS: abdominal pain TECHNIQUE: One view chest and two views of the abdomen were acquired. COMPARISON: [facility], CT, CT ABD PELVIS W CON, 12/16/2016, 15:23. FINDINGS: Surgical changes and devices: Clips within the right upper quadrant may be related to previous cholec ystectomy. Chest: Lungs are clear. Heart size is normal. No pleural effusions. No pneumoperitoneum. Abdomen: Bowel gas pattern is normal. An irregular calcification is seen within the left lower abdo men adjacent to the 5th left transverse process, which is not evident on the abdomen and pelvis CT da tay 12/16/16, suggesting high attenuation material within the bowel. Visualized solid organ contours appear normal. Bones: No suspicious bony lesions. Multilevel degenerative changes of the thoracolumbar spine and b ilateral hips are present. IMPRESSION: 1. No bowel obstruction. 2. Negative chest. Dictated by: Fredi Archibald M.D. on 01/14/2017 at 12:05 Approved by: Fredi Archibald M.D. on 01/14/2017 at 12:07
[2017-01-14 12:46] LABS: TROPONIN T < 0.010 ug/L (0.0-0.011)
--- NOTE | 2017-01-14 13:43 | DRSVH ---
PROCEDURE: CT ABDOMEN AND PELVIS WITH CONTRAST ([id number]) INDICATIONS: 66 year-old female with abdominal pain and vomiting. TECHNIQUE: After the administration of intravenous contrast, 5 mm thick sections acquired from the diaphragm to the symphysis. 5 mm coronal and sagittal reformats were acquired. For radiation dose reduction, the following was used: automated exposure control, adjustment of mA and/or kV according to patient joyce velasquez. COMPARISON: [facility], CT, CT ABD PELVIS W CON, 12/16/2016, 15:23. [facility], CT, CT ABD PELVIS W CON, 12/03/2016, 15:36. [facility], CT, CT ABD PELVIS W CON, 11/18, 15:22. FINDINGS: Image quality: Excellent. ABDOMEN: Lung bases: Lung bases are clear, except for dependent atelectasis. Heart size is normal. Solid organs: Liver and spleen are normal in size. Several segment for hepatic simple cysts are aga in noted, measuring up to 3.1 cm. There is focal hepatic fat adjacent to the falciform ligament. Gall bladder is surgically absent. Biliary system is non dilated. Pancreas enhances normally. No adrena l nodules. Kidneys demonstrate normal size and enhancement, without hydronephrosis. Peritoneum and bowel: Bowel loops demonstrate normal wall thickness and caliber. The appendix is no rmal in caliber. Rectosigmoid bowel anastomotic staple line is now present. No free fluid or air. Nodes and vessels: No retroperitoneal or mesenteric adenopathy by size criteria. Aorta and inferior vena cava are normal in size, with patchy aortic atherosclerosis. Miscellaneous: No ventral hernias. PELVIS: Genitourinary: Bladder wall thickness is normal. Uterus and ovaries are normal in size. Miscellaneous: No inguinal hernias or adenopathy. Bones: No suspicious bony lesions. No vertebral body compression fractures. There is multilevel akshat mbar and lower thoracic spine disc degeneration. IMPRESSION: 1. Status post interval rectosigmoid resection for diverticulitis. No acute findings to explain abdom inal pain. 2. Several left hepatic lobe simple cysts as before. Dictated by: Saul Walden M.D. on 01/14/2017 at 12:33 Approved by: Saul Walden M.D. on 01/14/2017 at 12:42
[2017-01-14 14:27] VITALS: BP 178/93; PULSE 79; RESP 18; O2SAT 98
[2017-01-14] MEDS ORDERED: oxyCODONE-Acetamin 5-325 mg Tablet PO ONE (14:30)
[2017-01-14 14:40] VITALS: BP 178/93; PULSE 79; RESP 18; O2SAT 98
== END 2017-01-14 14:41 | disposition home or self-care (01) ==
LOC: SED 11:02
DX: R10.84 Generalized abdominal pain (principal); F41.9 Anxiety disorder, unspecified; I10 Essential (primary) hypertension; R11.10 Vomiting, unspecified; Z87.19 Personal history of other diseases of the digestive system; Z90.49 Acquired absence of other specified parts of digestive tract; Z88.8 Allergy status to other drugs, medicaments and biological substances; Z88.1 Allergy status to other antibiotic agents
CPT/HCPCS: 36415; 74022; 74177; 80053; 81002; 83605; 84484; 85025; 87040; 93005; 96361; 96374; 96375; 99285; J1170; J2060; J2405; J7030; Q9967

== ENCOUNTER 2017-01-14 21:31 | Emergency (ER) | payer MEDICARE, OTHER ==
[~2017-01-14] VITALS: Ht 165.1 cm; Wt 72.7 kg
[2017-01-14 21:33] VITALS: BP 196/110; PULSE 110; RESP 22; O2SAT 99
[2017-01-14] MEDS ORDERED: 0.9% Sodium Chloride 1,000 ML IV ONE (22:13)
--- NOTE | 2017-01-14 22:13 | ED.REPORT ---
HPI-General Illness Date of Service Jan 14, 2017 ED Provider: Camilo Gimenez MD Pt is a 66 y/o female w/ a hx of diverticulitis s/p colectomy, chronic opioid use, presenting to the ED c/o diffuse lower abdominal pain onset today. The patient is requesting Dilaudid and Ativan prior to giving us a history. Her last BM was this morning and was firm. No bloody stools or melena. The patient was admitted for December 16- for diverticulitis and underwent a laparoscopic rectosigmoid resection. She was discharged with 120 tabs of Dilaudid. She has been cutting back on the Dilaudid recently as she is running low. Prior to surgery, she was chronically taking Oxycontin prescribed by her PCP. The patient was seen earlier today in the ED by an PATIENT ADVOCATE and was evaluated for similar abdominal pain. A full workup was obtained and included CBC which showed no leukocytosis, CMP demonstrated no significant electrolyte abnormalities and normal LFTs however she was noted to have slightly elevated lactic acid of 2.8 consistent with dehydration. Abdominal x-ray was unremarkable. CT abd/pelvis demonstrated known colectomy for rectal sigmoid diverticulosis however no acute findings were present. Records indicate a history of significant opioid pain medication use. Nursing Notes Stated Complaint: SEVERE ABDOMINAL PAIN Chief Complaint: Female Abdominal Pain Nursing Notes Reviewed: Yes Allergies: Coded Allergies: ciprofloxacin (Verified Allergy, Unknown, Rash, 01/14/17) metronidazole (Verified Allergy, Unknown, 01/14/17) Scheduled Cholecalciferol (Vitamin D3) (Vitamin D3) 5,000 Unit Capsule 5,000 UNIT PO DAILY Lactobacillus Combo No.11 (Probiotic) 1 Each Cap.sprink 1 EACH PO BID Scheduled PRN Hydromorphone (Hydromorphone) 4 Mg Tablet 4-8 MG PO Q4H PRN PRN Pain Lorazepam (Lorazepam) 0.5 Mg Tablet 0.5 MG PO TID PRN PRN For Anxiety General Time Seen by MD: 22:01 Chief Complaint Abdominal pain Hx Obtained From: Patient Arrived By: Walk-in Sudden in Onset?: No Onset Occurred: 1 day ago Symptom Duration: Since onset Location: : Abdomen Quality: Painful Radiation: : Does not radiate Severity: Current: Moderate Severity: Maximum: Moderate Past Medical History Past Medical History Notes: Admit for diverticulitis October 2016, recent ED visit for continued diverticulitis December 03 Past Medical History Diverticulitis Hx of shingles Reports: Hypertension Past Surgical History Colectomy for diverticulitis Reports: Cholecystectomy Family History Noncontributory Smoking History Never Smoker Social History Alcohol Use: 1-3 per day Drug Use: Denies drug use Other Social History: Good social support, Local resident Occupation lives with daughter 2 [employer] 01/14/2017 Ambulatory Status Independent Review of Systems Full Review of Systems Constitutional: Denies: Chills, Fever GI: Reports: Abdominal pain, Denies: Nausea, Vomiting Complete sys rev & neg: except as marked. Physical Exam Vital Signs Vital Signs Date Time Temp Pulse Resp B/P Pulse Ox O2 Delivery O2 Flow Rate FiO2 01/14/17 23:45 37.1 98 18 198/112 98 Room Air 01/14/17 22:44 97 20 194/100 99 Room Air 01/14/17 21:33 35.4 110 22 196/110 99 Room Air Initial VS: Reviewed, Vital signs abnormal Head / Eyes: Atraumatic, Normocephalic, PERRL ENT: Mucous membranes moist, Conjunctiva normal, No scleral icterus Neck: Supple, Full range of motion Respiratory: Breath sounds normal, Clear to auscultation, No respiratory distress Cardiovascular: Regular rate & rhythm, Heart sounds normal, Intact distal pulses Extremities: Vascular intact, Neuro intact, No swelling Skin: Warm, Dry, No cyanosis Neurologic: Alert, Oriented, Nonfocal Psychiatric: Mood/affect normal, Behavior normal, Normal thought content General/Constitutional: Awake, Alert, Cooperative, Not toxic appearing Appears in opiate withdrawal Abdomen: Atraumatic, Soft, Non-tender, No guarding, No rebound, No distention, No palpable mass Interpretation & Diagnostics Lab Results Interpretation Test 01/14/17 21:56 01/14/17 22:40 Hold Purple Top Tube Received (Received) Hold Blue Top Tube Received (Received) Hold [place] Top Tube Received (Received) Hold Marcus Top Tube Received (Received) Hold Urine Received (Received) Re-Eval/Medical Decision Med Decision/Clinical Course Pt is a 66 y/o female w/ a hx of diverticulitis s/p colectomy, chronic opioid use, presenting to the ED c/o diffuse lower abdominal pain onset today. The patient is requesting Dilaudid and Ativan prior to giving us a history. Her last BM was this morning and was firm. No bloody stools or melena. The patient was admitted for December 16- for diverticulitis and underwent a laparoscopic rectosigmoid resection. She was discharged with 120 tabs of Dilaudid. She has been cutting back on the Dilaudid recently as she is running low. Prior to surgery, she was chronically taking Oxycontin prescribed by her PCP. The patient was seen earlier today in the ED by an PATIENT ADVOCATE and was evaluated for similar abdominal pain. A full workup was obtained and included CBC which showed no leukocytosis, CMP demonstrated no significant electrolyte abnormalities and normal LFTs however she was noted to have slightly elevated lactic acid of 2.8 consistent with dehydration. Abdominal x-ray was unremarkable. CT abd/pelvis demonstrated known colectomy for rectal sigmoid diverticulosis however no acute findings were present. Records indicate a history of significant opioid pain medication use. Here in the emergency department the patient is afebrile stable vital signs and completely benign abdominal examination. She is hypertensive although this is her recent baseline, slightly tachycardic, afebrile. Meds given from triage: IV fluids, Zofran, hydromorphone Patient was noted to have resolution of her tachycardia after receiving hydromorphone however she immediately asked for further doses of IV narcotic pain medications. Serial abdominal examinations remained benign. Patient was extensively worked up earlier today and I see no indication to repeat laboratory or imaging studies. I had a long discussion with the patient and her daughter expressing my concern that much of her constellation of symptoms today is consistent with opioid withdrawal. I expressed that while opioids are useful in the acute management of pain but there is a poor long-term solution for pain and may lead to significant dependence and side effects such as constipation. I expressed to the patient that my recommendation is that she taper off opioid pain medications. She seems to have insight into the fact that many of her problems are likely caused by her chronic use of opioid pain medications in combination with benzodiazepines. I further expressed concern about the dangerous interactions between opioid pain medications and benzodiazepines. Advised to follow up with her primary care physician. I have referred her to [facility]. Prior to discharge follow-up and return precautions were reviewed in detail with the patient who verbalized understanding and agreement with the plan. The patient was discharged in stable condition. Source of Hx: Old records Time of Eval: 22:46 Re-Evaluation/Progress Note: Pt rechecked. Informed pt of plan for treatment. Pt understands and agrees with plan for treatment. F/U instructions and RTER warnings given. All questions addressed. Counseled Regarding: Diagnosis, Need for follow-up, When/why to return to ED Discharge & Departure Primary Impression: Abdominal pain Abdominal location: lower abdomen, unspecified Qualified Code: R10.30 - Lower abdominal pain, unspecified Additional Impressions: Opioid withdrawal Opiate dependence Substance use status: with unspecified opioid-induced disorder Qualified Code : F11.29 - Opioid dependence with unspecified opioid-induced disorder Chronic pain Chronic pain type: other chronic pain Qualified Code: G89.29 - Other chronic pain History of colectomy Disposition: Home Discharge Condition All VS Reviewed: Yes Condition: Stable Patient Instructions: Acute Abdominal Pain (ED), Opioid Withdrawal (ED) Additional Instructions: Thank you for seeking care at the emergency room. It is difficult for us to make definitive diagnoses in the ED but we believe that you are experiencing opioid withdrawal. Our primary goal today in the ED was to evaluate you for any life-threatening conditions. Your evaluation was reassuring. A full review of your most recent admission and emergency department visit was performed. You should follow-up with your primary doctor in the next week. To help taper off of opiates, you can visit [facility]. You should return to the ED immediately if you develop fevers, significantly worsening abdominal pain, persistent vomiting, lightheadedness, weakness or any other concerning signs or symptoms. Thank you for letting us partake in your care today. Referrals: Sachin Marcus MD (PCP) MARISSA Ni Attestation Portions of this note were transcribed by Jacob Adams. I, Dr. Gimenez personally performed the history, physical exam and medical decision-making; I reviewed and confirmed the accuracy of the information in the transcribed note. Signed by Raine Figueredo, 01/14/17 - [id number] copies to: Sachin Marcus MD ; Camilo Rucker MD Jan 14, 2017 22:13 JACOB ADAMS Jan 14, 2017 22:16
[2017-01-14] MEDS ORDERED: Ondansetron 2 mg/mL 2 mL Inj IVPUSH ONE (22:15)
[2017-01-14] MEDS ORDERED: HYDROmorphone 0.5 mg/0.5 mL iSecure Syringe IVPUSH PRN (22:15)
[2017-01-14 22:44] VITALS: BP 194/100; PULSE 97; RESP 20; O2SAT 99
[2017-01-14] MEDS ORDERED: hydrOXYzine Pamoate 25 mg Capsule PO ONE (23:15)
[2017-01-14 23:45] VITALS: BP 198/112; PULSE 98; RESP 18; O2SAT 98
== END 2017-01-14 23:48 | disposition home or self-care (01) ==
LOC: SED 21:31
DX: F11.29 Opioid dependence with unspecified opioid-induced disorder (principal); R10.30 Lower abdominal pain, unspecified; G89.29 Other chronic pain; I10 Essential (primary) hypertension; Z90.49 Acquired absence of other specified parts of digestive tract; Z88.1 Allergy status to other antibiotic agents
CPT/HCPCS: 96361; 96374; 96375; 99284; J1170; J2405; J7030; Q0177

== ENCOUNTER 2017-02-07 12:16 | Emergency (ER) | payer OTHER ==
[~2017-02-07] VITALS: Ht 165.1 cm; Wt 70.5 kg
[2017-02-07 12:25] VITALS: BP 220/110; PULSE 97; RESP 12; O2SAT 98
--- NOTE | 2017-02-07 12:43 | ED.REPORT ---
HPI-Abd Pain F 40 and Over Date of Service Feb 07, 2017 ED Provider: Dr. Young Pt is a 66 year old female with a hx of chronic abdominal pain presenting to the ED complaining of abdominal pain onset 5 years ago. She also complains of vomiting onset today, and states that the abdominal pain feels like a pressure. Pt had surgery for diverticulitis in November 2016 and has been on Dilaudid since. She states that she may be going through withdrawal. She states that she has had the abdominal pain for years, and still has the pain post surgery. Denies constipation, diarrhea, fever, dysuria, or any other symptoms at this time. She has been to the ED 3 times since symptoms began. Nursing Notes Stated Complaint: ABDOMINAL PAIN/NAUSEA Chief Complaint: Female Abdominal Pain Nursing Notes Reviewed: Yes Allergies: Coded Allergies: ciprofloxacin (Verified Allergy, Unknown, Rash, 01/14/17) metronidazole (Verified Allergy, Unknown, 01/14/17) Scheduled Cholecalciferol (Vitamin D3) (Vitamin D3) 5,000 Unit Capsule 5,000 UNIT PO DAILY Lactobacillus Combo No.11 (Probiotic) 1 Each Cap.sprink 1 EACH PO BID Scheduled PRN Hydromorphone (Hydromorphone) 4 Mg Tablet 4-8 MG PO Q4H PRN PRN Pain Lorazepam (Lorazepam) 0.5 Mg Tablet 0.5 MG PO TID PRN PRN For Anxiety Promethazine (Promethazine) 25 Mg Tablet 25 MG PO Q6H PRN PRN For Nausea/ Vomiting General Time Seen by MD: 12:43 Chief Complaint Abdominal pain Hx Obtained From: Patient Arrived By: Walk-in Sudden in Onset?: No Onset Occurred: 1 week ago Symptom Duration: Since onset Progression since Onset: Constant Location: : Diffuse Quality: Heaviness, Painful Severity: Current: Severe Severity: Maximum: Severe Recent Healthcare: No recent hospitalization, Recent doctor visit, Previous surgery Similar Sx Previous: Yes Past Medical History Past Medical History Notes: Admit for diverticulitis October 2016, recent ED visit for continued diverticulitis December 03 Past Medical History Diverticulitis Hx of shingles Reports: Hypertension Past Surgical History Colectomy for diverticulitis Reports: Cholecystectomy Family History Noncontributory Smoking History Never Smoker Social History Alcohol Use: 1-3 per day Drug Use: Denies drug use Other Social History: Good social support, Local resident Occupation lives with daughter 2 adalberto cooper 01/14/2017 Ambulatory Status Independent Review of Systems Constitutional: Denies: Fever GI: Reports: Abdominal pain, Nausea, Vomiting, Denies: Constipation, Diarrhea Female: Denies: Dysuria Complete sys rev & neg: except as marked. Physical Exam Vital Signs Vital Signs (First) Date Time Temp Pulse Resp B/P Pulse Ox O2 Delivery O2 Flow Rate FiO2 02/07/17 12:25 36.8 97 12 220/110 98 Room Air Initial VS: Reviewed Head / Eyes: Atraumatic, Normocephalic, PERRL ENT: Mucous membranes moist, Conjunctiva normal, No scleral icterus Extremities: Vascular intact, Neuro intact, No swelling, No tenderness Skin: Warm, Dry, No cyanosis Neurologic: Alert, Oriented, Nonfocal Psychiatric: Mood/affect normal, Behavior normal, Normal thought content General/Constitutional: Awake, Alert Restless, shaking, agitated. Respiratory / Chest: Breath sounds NL, Breath sounds = bilat, No respiratory distress, No rales, No rhonchi, No wheezing, No stridor Cardiovascular: Heart rate NL, Regular rhythm, Heart sounds NL, Peripheral circulation NL Abdomen: Atraumatic, Soft, Non-tender Back: Atraumatic, Inspection NL, Full range of motion Interpretation & Diagnostics Lab Results Interpretation Result Diagram: 02/07/17 1350 02/07/17 1350 Test 02/07/17 13:50 02/07/17 14:30 White Blood Count 6.3th/mm3 (3.8-10.1) Red Blood Count 4.70mil/mm3 (3.90-5.20) Hemoglobin 13.8g/dL (12.0-15.6) Hematocrit 39.8% (35.0-46.0) Mean Corpuscular Volume 84.7fL (81-100) Mean Corpuscular Hemoglobin 29.4pg (27.0-35.0) Mean Corpuscular Hemoglobin Concent 34.7% (32.0-37.0) Red Cell Distribution Width 14.3% (12.3-15.4) Platelet Count 267bil/L (150-400) Neutrophils (%) (Auto) 67.9% (40-74) Lymphocytes (%) (Auto) 25.1% (14-46) Monocytes (%) (Auto) 6.6% (4-12) Eosinophils (%) (Auto) 0% (0-5) Basophils (%) (Auto) 0.2% (0-3) Sodium Level 140mEq/L (134-144) Potassium Level 3.0mEq/L (3.5-5.2) Chloride Level 101mEq/L (97-108) Carbon Dioxide Level 19mmol/L (18-29) Blood Urea Nitrogen 19mg/dL (8-27) Creatinine 0.79mg/dL (0.57-1.00) Estimat Glomerular Filtration Rate 104mL/min (>59) Glucose Level 170mg/dL (60-99) Calcium Level 9.8mg/dL (8.5-10.1) Total Bilirubin 0.6mg/dL (0.0-1.2) Aspartate Amino Transf (AST/SGOT) 30U/L (0-50) Alanine Aminotransferase (ALT/SGPT) 35U/L (0-32) Alkaline Phosphatase 90U/L (25-165) Total Protein 7.7g/dL (6.4-8.4) Albumin 4.4g/dL (3.4-5.0) Lipase 10U/L (13-60) Hold Marcus Top Tube Received (Received) Hold Urine Received (Received) X-Ray Abdominal Interpretation IMPRESSION: 1. Normal chest. 2. Postoperative changes probably reflecting cholecystectomy and bowel resection. 3. No definite evidence of bowel obstruction although low grade partial obstruction cannot be excluded. No pneumoperitoneum. Dictated by: Andrei Herman M.D. on 02/07/2017 at 14:31 Interpretation / Wet Read by: Interpret - Radiologist Re-Eval/Medical Decision Med Decision/Clinical Course After receiving Subutex and promethazine the patient's symptoms have dramatically resolved and she is now tolerating oral intake. Bowel obstruction seems very unlikely as does any other life-threatening pathology. Coordination of care is made in order to have the patient follow up in Sub[facility]one clinic tomorrow. Return precautions given. Re-Evaluation/Progress #1: Time of Eval: 13:04 Patient Status: Condition improved Re-Evaluation/Progress Note: Discussed plan to use Suboxone. The pt repeatedly requests Dilaudid. Re-Evaluation/Progress #2: Time of Eval: 14:51 Patient Status: Condition improved Re-Evaluation/Progress Note: Pt feeling much better and is tolerating PO well. Counseled Regarding: Diagnosis, Lab results, Need for follow-up, When/why to return to ED Discharge & Departure Primary Impression: Chronic pain Chronic pain type: other chronic pain Qualified Code: G89.29 - Other chronic pain Disposition: Home Discharge Condition All VS Reviewed: Yes Condition: Improved Additional Instructions: Take Phenergan as needed for nausea. Follow-up at the Suboxone clinic, [facility], at 930 am. Your Appt is at 1030. Return to the ER as needed for intractable vomiting or other concerns. Referrals: Sachin Marcus MD (PCP) Scribe Attestation Portions of this note were transcribed by Pamela Jimenez. I, Dr. Young personally performed the history, physical exam and medical decision-making; I reviewed and confirmed the accuracy of the information in the transcribed note. Signed by: Raine Dunn, 02/07/17 at 3525. copies to: Sachin Marcus MD, Timothy S DO Feb 07, 2017 12:43 PAMELA JIMENEZ Feb 07, 2017 12:59
[2017-02-07] MEDS ORDERED: Buprenorphine 2 mg SL Tablet SL ONE (13:05)
[2017-02-07] MEDS ORDERED: Promethazine 25 mg/mL Inj IM ONE (13:50)
[2017-02-07 14:13] LABS: BASOPHILS % (AUTO) 0.2 % (0-3); EOSINOPHILS % (AUTO) 0 % (0-5); MONOCYTES % (AUTO) 6.6 % (4-12); Mean Corpuscular Hemoglobin 29.4 pg (27.0-35.0); Mean Corpuscular Volume 84.7 fL (81-100); NEUTROPHILS % (AUTO) 67.9 % (40-74); Platelet Count 267 bil/L (150-400)
--- NOTE | 2017-02-07 14:38 | DRSVH ---
PROCEDURE: X-RAY ACUTE ABDOMINAL SERIES ([id number]) INDICATIONS: persistent vomiting, post colectomy TECHNIQUE: One view chest and two views of the abdomen were acquired. COMPARISON: 01/14/2017 FINDINGS: Surgical changes and devices: Surgical clips right upper quadrant. Surgical sutures adjacent to the l eft L4 transverse process and over the midpelvis.. Chest: Lungs are clear. Faint radiodensity over the left third anterior rib on last exam is not seen . Heart size is normal. No pleural effusions. No pneumoperitoneum. Abdomen: Stool and air is present in the proximal colon. Minimal air within small bowel which measur es up to 2.4 cm in diameter within the left upper quadrant. No suspicious calcifications. Visualized solid organ contours appear normal. Bones: No suspicious bony lesions. IMPRESSION: 1. Normal chest. 2. Postoperative changes probably reflecting cholecystectomy and bowel resection. 3. No definite evidence of bowel obstruction although low grade partial obstruction cannot be exclude d. No pneumoperitoneum. Dictated by: Andrei Herman M.D. on 02/07/2017 at 14:31 Approved by: Andrei Herman M.D. on 02/07/2017 at 14:36
[2017-02-07] MEDS ORDERED: Potassium Chloride 20 mEq/15 mL 15mL Oral Soln PO ONE (14:40)
[2017-02-07] MEDS ORDERED: PROM25TA14 PO (15:17)
[2017-02-07 15:24] VITALS: BP 179/88; PULSE 80; RESP 16; O2SAT 97
== END 2017-02-07 15:25 | disposition home or self-care (01) ==
LOC: SED 12:16
DX: G89.29 Other chronic pain (principal); R10.9 Unspecified abdominal pain; R11.0 Nausea; I10 Essential (primary) hypertension; Z88.1 Allergy status to other antibiotic agents; Z88.8 Allergy status to other drugs, medicaments and biological substances
CPT/HCPCS: 36415; 74022; 80053; 83690; 85025; 96372; 99284; J2550